=== PATIENT | female | born 1950 | race Caucasian/White ===

== ENCOUNTER 2017-05-15 06:57 | Day surgery (SDC) | payer MEDICAID ==
[2017-05-15] MEDS ORDERED: Lactated Ringers 1,000 ML IV SCH (07:00)
[2017-05-15] MEDS ORDERED: Propofol 200 MG/20 ML SDV ONE (07:28)
[2017-05-15] MEDS ORDERED: fentaNYL 100 MCG/2 ML SDV ONE (07:28)
[2017-05-15] MEDS ORDERED: Midazolam 1 MG/ML 2 ML SDV ONE (07:28)
[2017-05-15] MEDS ORDERED: Metoprolol Succinate 50 MG Tab.ER PO ONE (07:45)
[2017-05-15] MEDS ORDERED: Barium Sulfate 105% w/v Susp 1,900 ML Bottle PO ONE (09:40)
[2017-05-15] MEDS ORDERED: Glucagon,Human Recombinant 1 MG Vial IV ONE (10:15)
--- NOTE | 2017-05-15 11:03 | CR ---
Barium Enema Comp HISTORY: incomplete colonoscopy FINDINGS: Single contrast barium enema study was obtained in the usual retrograde fashion. The rectum and most distal aspect of the sigmoid colon fills normally with contrast. There is severe narrowing of the distal sigmoid colon extending over a length of 4-5 cm. Only minimal contrast passed through t his into the proximal sigmoid colon. The patient was then given 1.0 mg of glucagon IV and very minimal was reattempted. The severely narro wed distal sigmoid colon did not relax with glucagon administration no further contrast would pass th rough this area into the proximal sigmoid colon. Remainder of the colon could not be evaluated. IMPRESSION: Severe narrowing of a 4-5 cm length of distal sigmoid colon precludes filling of the enti re colon. The narrowed segment did not relax with IV glucagon. Remainder of the colon could not be ev aluated. Findings may represent severe stricture due to inflammation or scarring. The patient has a h istory of diverticulitis. Underlying colon malignancy is not excluded.
--- NOTE | 2017-05-15 15:20 | OR ---
DATE OF PROCEDURE: 05/15/2017 PREOPERATIVE DIAGNOSIS: Colon cancer screening. POSTOPERATIVE DIAGNOSIS: Incomplete colonoscopy, only to sigmoid colon. PROCEDURE: Attempted colonoscopy, successful only to the sigmoid colon. ANESTHESIA: IV anesthesia with monitored anesthesia care. INDICATIONS: This 66-year-old white female is referred for a colonoscopy for colon cancer screening. Her last colonoscopic exam was about 10 years ago. I counseled her for the procedure including risks and alternatives, and she gave her informed consent to proceed. DESCRIPTION OF PROCEDURE: The patient was placed in the left lateral decubitus position. IV anesthesia was administered by the Anesthesia Service. Time-out was held. A rectal exam was performed, which was unremarkable. The flexible video Olympus colonoscope was introduced through her anus, up her rectum, and out her colon. We were only successful to about 25 cm from the anal verge. We could not despite applying abdominal compression, get above 25 cm. When it was obvious we were not going to be able to do the complete colonoscopy, the scope was withdrawn, examining the mucosa throughout. No mucosal abnormalities were noted. The scope was retroflexed in the rectum with the distal rectum appearing unremarkable. The scope was straightened and removed. She tolerated the procedure well. We will order a barium enema. Edwin Wheeler MD /[id number]
== END 2017-05-15 12:25 | disposition home or self-care (01) ==
LOC: JP.SDS 06:57
PROVIDERS: ATTEND Surgery
DX: Z12.11 Encounter for screening for malignant neoplasm of colon (principal); F17.200 Nicotine dependence, unspecified, uncomplicated
CPT/HCPCS: 45378; 74270; A9270; J1610; J2250; J2704; J3010; J7120

== ENCOUNTER 2017-09-21 07:48 | Inpatient (IN) | payer MEDICARE, BC ==
[~2017-09-21 07:48] MED LIST: Dexamethasone 4 MG/ML SDV ONE; Glycopyrrolate 0.2 MG/ML 5 ML MDV ONE; Meropenem 500 MG SDV ONE; Neostigmine Methylsulfate 1 MG/ML 5 ML Syringe ONE; Ondansetron 4 MG/2 ML SDV ONE; Propofol 200 MG/20 ML SDV ONE; Rocuronium 50 MG/5 ML Vial ONE; Succinylcholine 200 MG/10 ML MDV ONE
[2017-09-21] MEDS ORDERED: Sodium Chloride 0.9% 10 ML ONE (07:50)
[2017-09-21] MEDS ORDERED: fentaNYL 100 MCG/2 ML SDV ONE (07:50)
[2017-09-21] MEDS ORDERED: Naloxone 0.4 MG/ML SDV IVPUSH PRN (07:54)
[2017-09-21] MEDS ORDERED: Scopolamine 1.5 MG Transdermal Patch TOP SCH (08:00)
[2017-09-21] MEDS ORDERED: Acetaminophen 500 MG Tab PO ONE (08:00)
[2017-09-21] MEDS ORDERED: Dextrose 5%-Lactated Ringers 1,000 ML IV SCH (08:15)
[2017-09-21] MEDS: cefOXitin 2 GM in Sodium Chloride 0.9% 50 ML IV ONE ×2 (11:15→20:11)
[2017-09-21] MEDS ORDERED: fentaNYL 250 MCG/5 ML SDV ONE (12:22)
[2017-09-21] MEDS ORDERED: hydrOXYzine HCl 100 MG/2 ML SDV IM ONE (14:16)
[2017-09-21] MEDS ORDERED: diphenhydrAMINE 50 MG/ML SDV IVPUSH PRN (15:32)
[2017-09-21] MEDS ORDERED: Naloxone 0.4 MG/ML SDV IV PRN (15:32)
[2017-09-21] MEDS ORDERED: Ondansetron 4 MG/2 ML SDV IV PRN (15:36)
[2017-09-21] MEDS ORDERED: ALPRAZolam 0.25 MG Tab PO PRN (15:53)
[2017-09-21] MEDS: fentaNYL 2,500 MCG in Sodium Chloride 0.9% 200 ML EPIDUR SCH (17:19)
[2017-09-21] MEDS: Pantoprazole 40 MG Vial IV SCH (17:32)
[2017-09-21] MEDS: cefOXitin 2 GM in Sodium Chloride 0.9% 50 ML IV SCH ×2 (17:40→23:15)
[2017-09-21] MEDS: Acetaminophen 500 MG Tab PO SCH ×2 (17:51→23:14)
[2017-09-21] MEDS: Lactated Ringers 500 ML IV SCH (20:19)
[2017-09-21] MEDS: Dextrose 5%-Lactated Ringers 1,000 ML IV SCH (23:17)
[2017-09-22] MEDS ORDERED: Lactated Ringers 500 ML IV SCH (00:30)
[2017-09-22] MEDS: Lactated Ringers 500 ML IV SCH (00:30)
[2017-09-22] MEDS: Acetaminophen 500 MG Tab PO SCH ×4 (05:18→23:10)
[2017-09-22] MEDS: cefOXitin 2 GM in Sodium Chloride 0.9% 50 ML IV SCH ×3 (05:18→17:34)
[2017-09-22] MEDS: Dextrose 5%-Lactated Ringers 1,000 ML IV SCH ×3 (06:11→20:13)
[2017-09-22] MEDS: Venlafaxine 75 MG Cap.ER PO SCH (08:29)
[2017-09-22] MEDS: Metoprolol Succinate 50 MG Tab.ER PO SCH (08:36)
--- NOTE | 2017-09-22 10:25 | OR ---
DATE OF PROCEDURE: 09/21/2017 PREOPERATIVE DIAGNOSIS: Stricture of sigmoid colon, preventing more proximal examination of colon. POSTOPERATIVE DIAGNOSES: 1. Stricture of distal sigmoid colon with intense inflammatory response and associated pericolonic abscess. 2. Nodular-appearing lesion overlying the omentum. OPERATIVE PROCEDURES: Exploratory laparotomy with; 1. Rectosigmoid resection with coloproctostomy (72433). 2. Drainage of pericolonic abscess (92016). 3. Excision of peritoneal incision overlying omentum (97391). 4. Mobilization of omentum into pelvis to displace small bowel from pelvic surfaces reducing subsequent adhesion formation (09124). ANESTHESIA: General plus epidural. ASSISTANTS: 1. Cathy Dolan PA-C. 2. RACHEL Reid. INDICATION FOR PROCEDURE: This 66-year-old is presenting with recent colonoscopic examination, which did not allow placement of the scope proximally to around 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 Proximal to that, there was some thickening of the colon wall. The original plan at this point was to proceed with a subtotal colectomy with ileorectal anastomosis. Potential risks including bleeding, infection, leaks from various GI tract closures, possibly requiring a temporary ostomy, as well as the possibility of cardiopulmonary, septic, or hemorrhagic complications leading to were all discussed, and the patient wishes to proceed. DETAILS OF PROCEDURE: The patient was taken to the operating room and placed in a supine position. After general endotracheal anesthesia was induced, she was converted to a lithotomy position, a Judge catheter was inserted, and the abdomen was then prepped and draped. Orogastric tube was briefly placed subsequently to evacuate a somewhat air-filled stomach. Midline incisions were made from roughly a handsbreadth's above the umbilicus to the pubis and carried down through the full-thickness of the abdominal wall. Upon entering the peritoneal cavity, a roughly 3 mm peritoneal nodule was noted over the omentum. This was excised and sent as a separate specimen. Otherwise, the liver was inspected and found to be somewhat fatty infiltrated, but otherwise unremarkable. The colon, proximal to the area of high-grade partial obstruction, was at this point fairly normal. Careful inspection of the colon proximal to the obstruction, which in this case turned out to be quite distal in the sigmoid colon, was made and no specific additional palpable or visible abnormalities were noted. The area of the inflammatory mass was, in fact, quite distal within the sigmoid colon, quite a bit lower than what we would have thought based on the colonoscopic report. At this point, the midsigmoid colon was divided with a SALVADOR stapler and this division then continued with SALVADOR stapler down to the base of the superior hemorrhoidal vessels. This then allowed dissection behind the rectum, and the rectal stalks were then taken with SALVADOR joseph. On the left side, care was taken to maintain a relatively close plane so as not to draw the ureter into the area of dissection and division of the tissues. Eventually, we were able to get beyond the area of inflammation, which in this case was quite low within the rectum. It was felt, at this point we should, based on operative findings, rather than to proceed with a subtotal colectomy, do a rectosigmoid resection with coloproctostomy, as an anastomosis with a subtotal colectomy that low would be fraught with a large problem with very frequent loose bowel movements. Once that dissection was completed, then a clean area in the rectum was identified. This was divided with a SALVADOR black load, this being a curved stapler. The specimen was then inspected off the field. There did not appear to be any evidence of malignancy as the mucosa was otherwise clean in the area of the stricture and adjacent to it, indicating this was a diverticular disease related stricture. Given this, it was felt that the above operation from the resection and lymph node sampling standpoint would be quite adequate. The anvil of a 28-mm EEA stapler was then placed in the divided end of the sigmoid colon, after that staple line had been initially divided. This was then re-stapled with a SALVADOR purple load, and the anvil shaft brought out through the most dependent portion of the divided sigmoid colon, through the rectum, and then the main body of the EEA stapler was passed up to the apex of the rectal staple line, united with the anvil, and thus creating a coloproctostomy. Upon removal of the stapler, double donuts of mucosa were noted within it. The area was flooded with meropenem-containing saline solution while the colonoscope was passed into the rectum and no air bubbles were seen. A clean and intact anastomosis with blood supply on each side was confirmed. With the colonoscope now removed, the anterior two-thirds of the anastomosis was reinforced with 3-0 Vicryl seromuscular stitches. These were placed in an interrupted manner and then, finally, with fibrin sealant circumferentially. One Eugene-Catalan drain was then placed through a stab wound in the right midabdomen, taken down adjacent to the coloproctostomy, and from there further into the pelvis. There were no overt problems noted. The omentum was then mobilized down into the pelvis, displacing the small bowel away from the pelvic surfaces to prevent an adhesion formation in that area should additional subsequent operative intervention be required. At this point, the peritoneum from the linea semilunaris inferiorly was closed with a #2 Vicryl stitch and then the anterior fascia closed with a #2 Vicryl stitch. The skin and subcutaneous tissue were felt to be at high risk for wound infection and were therefore packed open for a planned delayed primary closure in 48 hours. The patient was taken to the recovery room in a satisfactory condition. Prior to getting the general anesthetic, the patient had an epidural catheter placed, which then turned on in terms of infusion prior to the incision, and this appeared to be satisfactory in terms of early pain control. Physician school psychologist assistant, Cathy Dolan, played an essential role in assisting in this case, helping to position the patient, retract structures as needed, as well as suturing and cutting sutures when indicated. Her presence improved patient safety and decreased the operative time. Gary Lam MD Job #: [id number]
--- NOTE | 2017-09-22 11:40 | PCM.PN ---
- General Info Date of Service: 09/22/17 Admission Dx/Problem (Free Text): Status post sigmoid colectomy. Subjective Update: Patient is POD #1. She was hypotension with a low grade fever over night otherwise there we no other acute problems. She is up, ambulating and going to the bathroom. Was in chair this am when seen. She had one bowel movement yesterday that was dark and bloody. Urine has increased since the last bolus of fluids. Functional Status: Reports: Pain Controlled, Tolerating Diet, Ambulating, Urinating, Incentive Spirometry - Review of Systems General: Reports: No Symptoms HEENT: Reports: No Symptoms Pulmonary: Reports: No Symptoms Cardiovascular: Reports: No Symptoms Gastrointestinal: Reports: No Symptoms Genitourinary: Reports: No Symptoms Musculoskeletal: Reports: No Symptoms Skin: Reports: No Symptoms Neurological: Reports: No Symptoms Psychiatric: Reports: No Symptoms Systems Review Comment:: Remainder of ROS is negative for any pertinent negatives or positives. - Patient Data Vitals - Most Recent: Last Vital Signs Temp 99.0 F 09/22/17 11:00 Pulse 86 09/22/17 11:00 Resp 18 09/22/17 11:00 BP 149/134 H 09/22/17 11:00 Pulse Ox 98 09/22/17 11:00 Weight - Most Recent: 162 lb 0.001 oz I&O - Last 24 Hours: Intake & Output 09/21/17 09/22/17 09/22/17 22:59 06:59 14:59 Intake Total 730 3076 350 Output Total 335 831 105 Balance 395 2245 245 Lab Results Last 24 Hours: Laboratory Results - last 24 hr 09/21/17 09/22/17 Range/Units 08:00 04:20 WBC 13.7 H (4.5-11.0) K/uL RBC 4.31 (3.30-5.50) M/uL Hgb 12.8 (12.0-15.0) g/dL Hct 39.9 (36.0-48.0) % MCV 93 (80-98) fL MCH 30 (27-31) pg MCHC 32 (32-36) % Plt Count 186 (150-400) K/uL Carcinoembryonic Ag 6.4 H (0.0-4.7) ng/mL Andrew Results Last 24 Hours: Microbiology 09/21/17 13:20 Gram Stain - Final Abdomen - Drainage Wound Culture - Preliminary Med Orders - Current: Current Medications Acetaminophen (Tylenol Extra Strength) 1,000 mg PO Q6H [facility] Last Admin: 09/22/17 05:18 Dose: Not Given Alprazolam (Xanax) 0.25 mg PO BEDTIME PRN PRN Reason: ANXIETY Alvimopan (Entereg) 12 mg PO BID [facility] Stop: 09/28/17 09:01 Last Admin: 09/22/17 08:29 Dose: 12 mg Diphenhydramine HCl (Benadryl) 25 - 50 mg IVPUSH Q6H PRN PRN Reason: ITCHING Hydroxyzine HCl (Vistaril) 50 - 100 mg IM Q4H PRN PRN Reason: PAIN Fentanyl 2,500 mcg/ Sodium (Chloride) 250 mls @ 0 mls/hr EPIDUR TITRATE [facility]; Protocol Last Admin: 09/21/17 17:19 Dose: 10 mls/hr, 10 mls/hr Dextrose/Lactated Ringer's (Dextrose 5%-Lactated Ringers) 1,000 mls @ 150 mls/ hr IV ASDIRECTED [facility] Last Admin: 09/22/17 06:11 Dose: 150 mls/hr Cefoxitin Sodium 2 gm/ Sodium (Chloride) 50 mls @ 100 mls/hr IV Q6H [facility] Stop: 09/22/17 17:29 Last Admin: 09/22/17 05:18 Dose: 100 mls/hr Lactated Ringer's (Ringers, Lactated) 500 mls @ 5 mls/hr IV ASDIRECTED [facility] Last Admin: 09/22/17 00:30 Dose: 5 mls/hr Lactated Ringer's (Ringers, Lactated) 500 mls @ 500 mls/hr IV ASDIRECTED [facility] Metoprolol Succinate (Toprol Xl) 50 mg PO DAILY [facility] Last Admin: 09/22/17 08:36 Dose: 50 mg Naloxone HCl (Narcan) 0.1 mg IVPUSH Q5M PRN PRN Reason: RESP RATE LESS THAN 6/MINUTE Naloxone HCl (Narcan) 0.4 mg IV ASDIRECTED PRN PRN Reason: ITCHING Ask About Scop Patch 0 each .XX ONETIME ONE Stop: 09/24/17 08:01 Ondansetron HCl (Zofran) 4 mg IV Q4H PRN PRN Reason: N/V Pantoprazole Sodium (Protonix Iv) 40 mg IV Q24H [facility] Last Admin: 09/21/17 17:32 Dose: 40 mg Scopolamine (Transderm-Scop) 1.5 mg TOP Q72H [facility] Stop: 09/24/17 02:00 Last Admin: 09/21/17 08:37 Dose: 1.5 mg Venlafaxine HCl (Effexor Xr) 75 mg PO DAILY [facility] Last Admin: 09/22/17 08:29 Dose: 75 mg Discontinued Medications Acetaminophen (Tylenol Extra Strength) 1,000 mg PO ONETIME ONE Stop: 09/21/17 08:01 Last Admin: 09/21/17 08:14 Dose: 1,000 mg Alvimopan (Entereg) 12 mg PO ONETIME ONE Stop: 09/21/17 08:01 Last Admin: 09/21/17 08:14 Dose: 12 mg Dexamethasone (Dexamethasone) Confirm Administered Dose 4 mg .ROUTE .STK-MED ONE Stop: 09/21/17 07:48 Fentanyl (Sublimaze) Confirm Administered Dose 100 mcg .ROUTE .STK-MED ONE Stop: 09/21/17 07:51 Fentanyl (Sublimaze) Confirm Administered Dose 250 mcg .ROUTE .STK-MED ONE Stop: 09/21/17 12:23 Fentanyl Citrate (Fentanyl) Confirm Administered Dose 500 mcg .ROUTE .STK-MED ONE Stop: 09/21/17 07:52 Glycopyrrolate (Robinul) Confirm Administered Dose 1 mg .ROUTE .STK-MED ONE Stop: 09/21/17 07:48 Hydroxyzine HCl (Vistaril) 50 mg IM ONETIME ONE Stop: 09/21/17 14:17 Last Admin: 09/21/17 14:20 Dose: 50 mg Dextrose/Lactated Ringer's (Dextrose 5%-Lactated Ringers) 1,000 mls @ 100 mls/ hr IV ASDIRECTED [facility] Last Admin: 09/21/17 09:51 Dose: 100 mls/hr Cefoxitin Sodium 2 gm/ Sodium (Chloride) 50 mls @ 100 mls/hr IV ONETIME ONE Stop: 09/21/17 08:29 Last Admin: 09/21/17 20:11 Dose: Not Given Sodium Chloride (Normal Saline) Confirm Administered Dose 10 mls @ as directed .ROUTE .STK-MED ONE Stop: 09/21/17 07:51 Meropenem (Merrem) Confirm Administered Dose 500 mg .ROUTE .STK-MED ONE Stop: 09/21/17 07:04 Last Admin: 09/21/17 13:24 Dose: 500 mg Neostigmine Methylsulfate (Neostigmine) Confirm Administered Dose 5 mg .ROUTE .STK-MED ONE Stop: 09/21/17 07:48 Ondansetron HCl (Zofran) Confirm Administered Dose 4 mg .ROUTE .STK-MED ONE Stop: 09/21/17 07:48 Propofol (Diprivan 20 Ml) Confirm Administered Dose 200 mg .ROUTE .STK-MED ONE Stop: 09/21/17 07:48 Rocuronium [place] (Zemuron) Confirm Administered Dose 50 mg .ROUTE .STK-MED ONE Stop: 09/21/17 07:48 Succinylcholine Chloride (Quelicin) Confirm Administered Dose 200 mg .ROUTE .STK -MED ONE Stop: 09/21/17 07:48 - Exam General: Alert, Oriented, Cooperative, No Acute Distress HEENT: Pupils Equal, Mucous Membr. Moist/[place] Neck: Supple Lungs: Clear to Auscultation, Normal Respiratory Effort Cardiovascular: Regular Rate, Regular Rhythm Extremities: Normal Range of Motion Skin: Warm, Dry, Intact Neurological: No New Focal Deficit Psy/Mental Status: Alert, Normal Affect, Normal Mood - Problem List Review Problem List Initiated/Reviewed/Updated: Yes - Assessment Assessment:: Status post open sigmoid resection. - Plan Plan:: 1. Cefotoxin 2gm sodium cloride 50mL IV q6h 2. LR 500 ML IV as directed 3. Metoprolol Succinate 50mg po qd 4. Venlafaxine 75mg po qd 5. Alvimopan 12mg po BID 6. Remove and replace Scopolamine patch 7. Regular Diet 8. Prepare for secondary closure on 09/23/2017 9. Reevaluate prn or in am
[2017-09-22] MEDS: fentaNYL 2,500 MCG in Sodium Chloride 0.9% 200 ML EPIDUR SCH (12:02)
[2017-09-22] MEDS: traMADol 50 MG Tab PO SCH ×3 (13:03→23:08)
[2017-09-22] MEDS: Bisacodyl 5 MG Tab PO SCH ×2 (13:04→20:15)
[2017-09-22] MEDS: Ibuprofen 400 MG Tab PO SCH ×3 (13:04→23:08)
[2017-09-22] MEDS: Pantoprazole 40 MG Vial IV SCH (17:36)
[2017-09-23] MEDS: Dextrose 5%-Lactated Ringers 1,000 ML IV SCH ×2 (03:10→23:57)
[2017-09-23] MEDS: traMADol 50 MG Tab PO SCH ×4 (05:53→18:41)
[2017-09-23] MEDS: Acetaminophen 500 MG Tab PO SCH ×4 (05:53→17:06)
[2017-09-23] MEDS: Ibuprofen 400 MG Tab PO SCH ×4 (05:53→17:08)
[2017-09-23] MEDS ORDERED: Propofol 200 MG/20 ML SDV ONE (06:41)
[2017-09-23] MEDS ORDERED: Lidocaine 1% with EPINEPHrine 1:100,000 50 ML MDV ONE (06:43)
[2017-09-23] MEDS ORDERED: Meropenem 500 MG SDV ONE (06:43)
[2017-09-23] MEDS ORDERED: Bupivacaine 0.5% 50 ML MDV ONE (06:43)
[2017-09-23] MEDS ORDERED: Furosemide 20 MG/2 ML VIAL IVPUSH ONE (07:00)
[2017-09-23] MEDS ORDERED: Ropivacaine 36 ML, Dexamethasone 8 MG, EPINEPHrine 0.4 MG, Sodium Chloride 0.9% 41.6 ML NERVRT SCH ×4 (07:15)
--- NOTE | 2017-09-23 07:35 | PCM.PN ---
- General Info Date of Service: 09/23/17 Admission Dx/Problem (Free Text): Stricture of sigmoid colon, preventing more proximal exam of colon Subjective Update: Patients is POD #2 and will have a secondary closure of her wound today. She were stable overnight with no major problems. She is up and ambulating and the Judge catheter is still placed. She denies nausea and has not had any gas. Functional Status: Reports: Pain Controlled, Tolerating Diet, Ambulating, Urinating (Judge Catheter), Incentive Spirometry - Review of Systems General: Reports: No Symptoms HEENT: Reports: No Symptoms Pulmonary: Reports: No Symptoms Cardiovascular: Reports: No Symptoms Gastrointestinal: Reports: No Symptoms Genitourinary: Reports: No Symptoms Musculoskeletal: Reports: No Symptoms Skin: Reports: No Symptoms Neurological: Reports: No Symptoms Psychiatric: Reports: No Symptoms Systems Review Comment:: Remainder of ROS is negative for any pertinent negatives or positives. - Patient Data Vitals - Most Recent: Last Vital Signs Temp 97.4 F 09/23/17 03:00 Pulse 73 09/23/17 03:00 Resp 18 09/23/17 03:00 BP 140/84 09/23/17 03:00 Pulse Ox 93 L 09/23/17 03:00 Weight - Most Recent: 162 lb 0.001 oz I&O - Last 24 Hours: Intake & Output 09/22/17 09/23/17 09/23/17 22:59 06:59 14:59 Intake Total 5016 1807 Output Total 263 700 Balance 4753 1107 Lab Results Last 24 Hours: Laboratory Results - last 24 hr 09/21/17 Range/Units 08:00 Carcinoembryonic Ag 6.4 H (0.0-4.7) ng/mL Andrew Results Last 24 Hours: Microbiology 09/21/17 13:20 Gram Stain - Final Abdomen - Drainage Wound Culture - Preliminary Anaerobic Culture - Preliminary NO GROWTH AFTER 1 DAY Med Orders - Current: Current Medications Acetaminophen (Tylenol Extra Strength) 1,000 mg PO Q6H [facility] Last Admin: 09/23/17 06:50 Dose: 1,000 mg Alprazolam (Xanax) 0.25 mg PO BEDTIME PRN PRN Reason: ANXIETY Alvimopan (Entereg) 12 mg PO BID [facility] Stop: 09/28/17 09:01 Last Admin: 06/26/18 20:15 Dose: 12 mg Bisacodyl (Dulcolax) 10 mg PO BID [facility] Last Admin: 09/22/17 20:15 Dose: 10 mg Ropivacaine 36 ml/Dexamethasone 8 mg/Epinephrine HCl 0.4 mg/ Sodium Chloride 41.6 ml 0 ml NERVRT ASDIRECTED [facility] Diphenhydramine HCl (Benadryl) 25 - 50 mg IVPUSH Q6H PRN PRN Reason: ITCHING Hydroxyzine HCl (Vistaril) 50 - 100 mg IM Q4H PRN PRN Reason: PAIN Fentanyl 2,500 mcg/ Sodium (Chloride) 250 mls @ 0 mls/hr EPIDUR TITRATE [facility]; Protocol Last Admin: 09/22/17 12:02 Dose: 10 mls/hr, 10 mls/hr Dextrose/Lactated Ringer's (Dextrose 5%-Lactated Ringers) 1,000 mls @ 150 mls/ hr IV ASDIRECTED [facility] Last Admin: 09/23/17 03:10 Dose: 150 mls/hr Lactated Ringer's (Ringers, Lactated) 500 mls @ 5 mls/hr IV ASDIRECTED [facility] Last Admin: 09/22/17 00:30 Dose: 5 mls/hr Ibuprofen (Motrin) 400 mg PO Q6H [facility] Last Admin: 09/23/17 06:49 Dose: 400 mg Metoprolol Succinate (Toprol Xl) 50 mg PO DAILY [facility] Last Admin: 09/22/17 08:36 Dose: 50 mg Naloxone HCl (Narcan) 0.1 mg IVPUSH Q5M PRN PRN Reason: RESP RATE LESS THAN 6/MINUTE Naloxone HCl (Narcan) 0.4 mg IV ASDIRECTED PRN PRN Reason: ITCHING Ask About Scop Patch 0 each .XX ONETIME ONE Stop: 09/24/17 08:01 Ondansetron HCl (Zofran) 4 mg IV Q4H PRN PRN Reason: N/V Last Admin: 09/22/17 20:24 Dose: 4 mg Pantoprazole Sodium (Protonix Iv) 40 mg IV Q24H [facility] Last Admin: 09/22/17 17:36 Dose: 40 mg Scopolamine (Transderm-Scop) 1.5 mg TOP Q72H [facility] Stop: 09/24/17 02:00 Last Admin: 09/21/17 08:37 Dose: 1.5 mg Senna/Docusate Sodium (Senna Plus) 2 tab PO DAILY [facility] Tramadol HCl (Ultram) 50 mg PO Q6H [facility] Last Admin: 09/23/17 06:50 Dose: 50 mg Venlafaxine HCl (Effexor Xr) 75 mg PO DAILY [facility] Last Admin: 09/22/17 08:29 Dose: 75 mg Discontinued Medications Acetaminophen (Tylenol Extra Strength) 1,000 mg PO ONETIME ONE Stop: 09/21/17 08:01 Last Admin: 09/21/17 08:14 Dose: 1,000 mg Alvimopan (Entereg) 12 mg PO ONETIME ONE Stop: 09/21/17 08:01 Last Admin: 09/21/17 08:14 Dose: 12 mg Bupivacaine HCl (Marcaine 0.5%) Confirm Administered Dose 50 ml .ROUTE .STK-MED ONE Stop: 09/23/17 06:44 Dexamethasone (Dexamethasone) Confirm Administered Dose 4 mg .ROUTE .STK-MED ONE Stop: 09/21/17 07:48 Fentanyl (Sublimaze) Confirm Administered Dose 100 mcg .ROUTE .STK-MED ONE Stop: 09/21/17 07:51 Fentanyl (Sublimaze) Confirm Administered Dose 250 mcg .ROUTE .STK-MED ONE Stop: 09/21/17 12:23 Fentanyl Citrate (Fentanyl) Confirm Administered Dose 500 mcg .ROUTE .STK-MED ONE Stop: 09/21/17 07:52 Furosemide (Lasix) 20 mg IVPUSH STAT ONE Stop: 09/23/17 07:01 Last Admin: 09/23/17 07:05 Dose: 20 mg Glycopyrrolate (Robinul) Confirm Administered Dose 1 mg .ROUTE .STK-MED ONE Stop: 09/21/17 07:48 Hydroxyzine HCl (Vistaril) 50 mg IM ONETIME ONE Stop: 09/21/17 14:17 Last Admin: 09/21/17 14:20 Dose: 50 mg Dextrose/Lactated Ringer's (Dextrose 5%-Lactated Ringers) 1,000 mls @ 100 mls/ hr IV ASDIRECTED [facility] Last Admin: 09/21/17 09:51 Dose: 100 mls/hr Cefoxitin Sodium 2 gm/ Sodium (Chloride) 50 mls @ 100 mls/hr IV ONETIME ONE Stop: 09/21/17 08:29 Last Admin: 09/21/17 20:11 Dose: Not Given Sodium Chloride (Normal Saline) Confirm Administered Dose 10 mls @ as directed .ROUTE .STK-MED ONE Stop: 09/21/17 07:51 Cefoxitin Sodium 2 gm/ Sodium (Chloride) 50 mls @ 100 mls/hr IV Q6H [facility] Stop: 09/22/17 17:29 Last Admin: 09/22/17 17:34 Dose: 100 mls/hr Lactated Ringer's (Ringers, Lactated) 500 mls @ 500 mls/hr IV ASDIRECTED [facility] Lidocaine/Epinephrine (Xylocaine 1% With Epinephrine 1:100,000) Confirm Administered Dose 50 ml .ROUTE .STK-MED ONE Stop: 09/23/17 06:44 Meropenem (Merrem) Confirm Administered Dose 500 mg .ROUTE .STK-MED ONE Stop: 09/21/17 07:04 Last Admin: 09/21/17 13:24 Dose: 500 mg Meropenem (Merrem) Confirm Administered Dose 500 mg .ROUTE .STK-MED ONE Stop: 09/23/17 06:44 Neostigmine Methylsulfate (Neostigmine) Confirm Administered Dose 5 mg .ROUTE .STK-MED ONE Stop: 09/21/17 07:48 Ondansetron HCl (Zofran) Confirm Administered Dose 4 mg .ROUTE .STK-MED ONE Stop: 09/21/17 07:48 Propofol (Diprivan 20 Ml) Confirm Administered Dose 200 mg .ROUTE .STK-MED ONE Stop: 09/21/17 07:48 Propofol (Diprivan 20 Ml) Confirm Administered Dose 200 mg .ROUTE .STK-MED ONE Stop: 09/23/17 06:42 Rocuronium [place] (Zemuron) Confirm Administered Dose 50 mg .ROUTE .STK-MED ONE Stop: 09/21/17 07:48 Succinylcholine Chloride (Quelicin) Confirm Administered Dose 200 mg .ROUTE .STK -MED ONE Stop: 09/21/17 07:48 - Exam General: Alert, Oriented, Cooperative, No Acute Distress HEENT: Pupils Equal, Mucous Membr. Moist/[place] Neck: Supple Lungs: Clear to Auscultation, Normal Respiratory Effort Cardiovascular: Regular Rate, Regular Rhythm GI/Abdominal Exam: Normal Bowel Sounds Extremities: Normal Range of Motion Skin: Warm, Dry, Intact Wound/Incisions: Healing Well, Drainage (Serosanguous), Other (Delayed primary closure schedule for today.) Neurological: No New Focal Deficit Psy/Mental Status: Alert, Normal Affect, Normal Mood - Problem List Review Problem List Initiated/Reviewed/Updated: Yes - Assessment Assessment:: 1. Status post open stricture of distal sigmoid colon with intense inflammatory and associated periocolonic abscess 2. Nodular lesion overlying omentum. - Plan Plan:: 1. Delayed primary closure schedule for this am 2. Orders will be reevaluated post operative 4. Lasix was given prior to closure 3. Reevaluate prn or in am
[2017-09-23] MEDS: Bisacodyl 5 MG Tab PO SCH ×2 (09:56→21:12)
[2017-09-23] MEDS: Venlafaxine 75 MG Cap.ER PO SCH (09:56)
[2017-09-23] MEDS: Metoprolol Succinate 50 MG Tab.ER PO SCH (09:57)
[2017-09-23] MEDS ORDERED: Bisacodyl 10 MG Supp RECTAL ONE (10:00)
[2017-09-23] MEDS: Furosemide 20 MG/2 ML VIAL IVPUSH SCH ×2 (10:07→17:08)
[2017-09-23] MEDS: fentaNYL 2,500 MCG in Sodium Chloride 0.9% 200 ML EPIDUR SCH (13:05)
--- NOTE | 2017-09-23 14:05 | OR ---
DATE OF PROCEDURE: 09/23/2017 PREOPERATIVE DIAGNOSIS: Open abdominal incision. POSTOPERATIVE DIAGNOSIS: Open abdominal incision. OPERATIVE PROCEDURE: Delayed primary closure of open abdominal incision. ANESTHESIA: Local plus IV sedation. INDICATION FOR PROCEDURE: The patient is 48 hours status post a colon resection, at which time, the skin and subcutaneous tissue were felt to be at high risk for wound infection if primary closure was undertaken. Given this, it was packed open and a delayed primary closure was planned for today. Potential risks including bleeding and infection were reviewed, and the patient wishes to proceed. DETAILS OF PROCEDURE: The patient was taken to the operating room and placed in a supine position, sitting up roughly 30 degrees to minimize aspiration risk. The abdominal dressing was taken down. Using continuous ultrasound, bilateral subcostal transversus abdominis plane blocks were then placed and following that the abdomen was prepped and draped. The incision appeared to be clean. The incision was then anesthetized with 1% lidocaine mixed with Marcaine and irrigated with a meropenem-containing saline solution. The 10-Citizen [place] round Eugene-Catalan drain was placed through a stab wound along the inferior aspect of incision. The incision was extended from the pubis up to just below the xiphoid. The incision was then closed with some 3-0 Vicryl stitch deep and then joseph for the skin. Dressing was applied. The patient was taken to the recovery room in a satisfactory condition. Gary Lam MD Job #: [id number]
--- NOTE | 2017-09-23 14:18 | PN ---
DATE OF SERVICE: 09/23/2017 The patient was a little bit more short of breath this morning. Given this, she, I think, probably has a little bit of extra fluid on board. We will back down the IV rate and give her a dose of Lasix this morning, repeat one little bit later in the morning and one this evening, and check some labs tomorrow morning. Otherwise, she is fairly distended and, I think, we will back down on the diet to a clear liquid diet until she has a bowel movement and continue with bowel stimulation otherwise, plus Dulcolax suppository later this morning. The patient underwent a wound closure without difficulty earlier today. Gary Lam MD Job #: [id number]
[2017-09-23] MEDS: Pantoprazole 40 MG Vial IV SCH (17:07)
[2017-09-23] MEDS ORDERED: Furosemide 40 MG/4 ML VIAL IVPUSH ONE (21:44)
[2017-09-23] MEDS ORDERED: Albuterol/Ipratropium 3.0-0.5 MG/3 ML Neb Soln NEB ONE (23:58)
[2017-09-24] MEDS: Albuterol/Ipratropium 3.0-0.5 MG/3 ML Neb Soln NEB SCH ×6 (00:10→23:34)
[2017-09-24] MEDS: Ibuprofen 400 MG Tab PO SCH ×4 (00:19→20:02)
[2017-09-24] MEDS: traMADol 50 MG Tab PO SCH ×2 (00:20→05:13)
[2017-09-24] MEDS: Acetaminophen 500 MG Tab PO SCH ×4 (00:20→20:32)
[2017-09-24] MEDS ORDERED: Sodium Chloride 0.9% 1,000 ML IV SCH (01:15)
--- NOTE | 2017-09-24 07:26 | PCM.PN ---
- General Info Date of Service: 09/24/17 Admission Dx/Problem (Free Text): Stricture of sigmoid colon, preventing more proximal exam of colon Subjective Update: Patient is POD #3. Her vitals were stable over night and there were no acute changes or problems overnight. Since admission her weight has increased 17lbs. Overnight she was experiencing some confusion and the tramadol was stopped. This will be discontinued today and we will continue forward using Tylenol or Ibuprofen for pain. If the pain gets worse will switch to Dilaudid. Patient still has an epidural and a estrada catheter. The epidural will be discontinued today, however the estrada catheter will remain due to inadequate urine output. Her in take was 820, she was up and ambulating. She had one bloody bowel movement. The patient continues to be short of breath and states that she is very hoarse this am. Functional Status: Reports: Pain Controlled, Tolerating Diet, Ambulating, Urinating (Estrada Catheter will stay due to inadequate urine output. ) - Review of Systems General: Reports: No Symptoms HEENT: Reports: Other (Hoarse.) Pulmonary: Reports: Shortness of Breath Cardiovascular: Reports: No Symptoms Gastrointestinal: Reports: No Symptoms Genitourinary: Reports: No Symptoms Musculoskeletal: Reports: No Symptoms Skin: Reports: No Symptoms Neurological: Reports: No Symptoms Psychiatric: Reports: No Symptoms Systems Review Comment:: Remainder of ROS is negative for any pertinent positives or negatives. - Patient Data Vitals - Most Recent: Last Vital Signs Temp 98.9 F 09/24/17 07:19 Pulse 90 09/24/17 07:19 Resp 20 09/24/17 07:19 BP 141/66 H 09/24/17 07:19 Pulse Ox 94 L 09/24/17 07:19 Weight - Most Recent: 175 lb 3.2 oz I&O - Last 24 Hours: Intake & Output 09/23/17 09/24/17 09/24/17 22:59 06:59 14:59 Intake Total 1409 1135 Output Total 544 683 Balance 862 452 Lab Results Last 24 Hours: Laboratory Results - last 24 hr 09/24/17 09/24/17 Range/Units 05:00 05:00 WBC 13.1 H (4.5-11.0) K/uL RBC 3.99 (3.30-5.50) M/uL Hgb 12.0 (12.0-15.0) g/dL Hct 36.5 (36.0-48.0) % MCV 92 (80-98) fL MCH 30 (27-31) pg MCHC 33 (32-36) % Plt Count 198 (150-400) K/uL Neut % (Auto) 84 H (36-66) % Lymph % (Auto) 7 L (24-44) % [place]cl[place] % (Auto) 9 H (2-6) % Eos % (Auto) 0 L (2-4) % Baso % (Auto) 0 (0-1) % Sodium 135 L (140-148) mmol/L Potassium 3.3 L (3.6-5.2) mmol/L Chloride 97 L (100-108) mmol/L Carbon Dioxide 28 (21-32) mmol/L Anion Gap 13.3 (5.0-14.0) mmol/L BUN 13 (7-18) mg/dL Creatinine 1.0 (0.6-1.0) mg/dL Est Cr Clr Drug Dosing 43.97 mL/min Estimated GFR (MDRD) 56 L (>60) Glucose 125 H (74-106) mg/dL Calcium 8.5 (8.5-10.1) mg/dL Phosphorus 3.1 (2.5-4.9) mg/dL Magnesium 1.3 L (1.8-2.4) mg/dL Total Bilirubin 0.5 (0.2-1.0) mg/dL AST 68 H (15-37) U/L ALT 52 (12-78) U/L Alkaline Phosphatase 75 (46-116) U/L NT-Pro-B Natriuret Pep 4435 H (5-125) pg/mL Total Protein 7.0 (6.4-8.2) g/dL Albumin 2.9 L (3.4-5.0) g/dL Globulin 4.1 H (2.3-3.5) g/dL Albumin/Globulin Ratio 0.7 L (1.2-2.2) Andrew Results Last 24 Hours: Microbiology 09/21/17 13:20 Gram Stain - Final Abdomen - Drainage Wound Culture - Preliminary Citrobacter Freundii Anaerobic Culture - Preliminary NO GROWTH AFTER 2 DAYS Med Orders - Current: Current Medications Acetaminophen (Tylenol Extra Strength) 1,000 mg PO Q6H [facility] Last Admin: 09/24/17 05:13 Dose: 1,000 mg Albuterol/Ipratropium (Duoneb 3.0-0.5 Mg/3 Ml) 3 ml NEB Q4H [facility] Last Admin: 09/24/17 02:49 Dose: 3 ml Alprazolam (Xanax) 0.25 mg PO BEDTIME PRN PRN Reason: ANXIETY Alvimopan (Entereg) 12 mg PO BID [facility] Stop: 09/28/17 09:01 Last Admin: 09/23/17 21:11 Dose: 12 mg Bisacodyl (Dulcolax) 10 mg PO BID [facility] Last Admin: 09/23/17 21:12 Dose: 10 mg Diphenhydramine HCl (Benadryl) 25 - 50 mg IVPUSH Q6H PRN PRN Reason: ITCHING Hydroxyzine HCl (Vistaril) 50 - 100 mg IM Q4H PRN PRN Reason: PAIN Fentanyl 2,500 mcg/ Sodium (Chloride) 250 mls @ 0 mls/hr EPIDUR TITRATE [facility]; Protocol Last Admin: 09/23/17 13:05 Dose: 10 mls/hr, 10 mls/hr Dextrose/Lactated Ringer's (Dextrose 5%-Lactated Ringers) 1,000 mls @ 80 mls/ hr IV ASDIRECTED [facility] Last Admin: 09/23/17 23:57 Dose: 80 mls/hr Ibuprofen (Motrin) 400 mg PO Q6H [facility] Last Admin: 09/24/17 05:13 Dose: 400 mg Metoprolol Succinate (Toprol Xl) 50 mg PO DAILY [facility] Last Admin: 09/23/17 09:57 Dose: 50 mg Naloxone HCl (Narcan) 0.1 mg IVPUSH Q5M PRN PRN Reason: RESP RATE LESS THAN 6/MINUTE Naloxone HCl (Narcan) 0.4 mg IV ASDIRECTED PRN PRN Reason: ITCHING Ask About Scop Patch 0 each .XX ONETIME ONE Stop: 09/24/17 08:01 Ondansetron HCl (Zofran) 4 mg IV Q4H PRN PRN Reason: N/V Last Admin: 09/22/17 20:24 Dose: 4 mg Pantoprazole Sodium (Protonix Iv) 40 mg IV Q24H [facility] Last Admin: 09/23/17 17:07 Dose: 40 mg Scopolamine (Transderm-Scop) 1.5 mg TOP Q72H [facility] Stop: 09/27/17 08:59 Senna/Docusate Sodium (Senna Plus) 2 tab PO DAILY [facility] Last Admin: 09/23/17 12:25 Dose: 2 tab Tramadol HCl (Ultram) 50 mg PO Q6H [facility] Last Admin: 09/24/17 05:13 Dose: Not Given Venlafaxine HCl (Effexor Xr) 75 mg PO DAILY [facility] Last Admin: 09/23/17 09:56 Dose: 75 mg Discontinued Medications Acetaminophen (Tylenol Extra Strength) 1,000 mg PO ONETIME ONE Stop: 09/21/17 08:01 Last Admin: 09/21/17 08:14 Dose: 1,000 mg Albuterol/Ipratropium (Duoneb 3.0-0.5 Mg/3 Ml) 3 ml NEB ONETIME ONE Stop: 09/23/17 23:59 Last Admin: 09/24/17 00:10 Dose: Not Given Alvimopan (Entereg) 12 mg PO ONETIME ONE Stop: 09/21/17 08:01 Last Admin: 09/21/17 08:14 Dose: 12 mg Bisacodyl (Dulcolax) 10 mg RECTAL ONETIME ONE Stop: 09/23/17 10:01 Last Admin: 09/23/17 10:11 Dose: 10 mg Bupivacaine HCl (Marcaine 0.5%) Confirm Administered Dose 50 ml .ROUTE .STK-MED ONE Stop: 09/23/17 06:44 Last Admin: 09/23/17 07:37 Dose: 17.5 ml Ropivacaine 36 ml/Dexamethasone 8 mg/Epinephrine HCl 0.4 mg/ Sodium Chloride 41.6 ml 0 ml NERVRT ASDIRECTED [facility] Last Admin: 09/23/17 07:30 Dose: 80 syringe Dexamethasone (Dexamethasone) Confirm Administered Dose 4 mg .ROUTE .STK-MED ONE Stop: 09/21/17 07:48 Fentanyl (Sublimaze) Confirm Administered Dose 100 mcg .ROUTE .STK-MED ONE Stop: 09/21/17 07:51 Fentanyl (Sublimaze) Confirm Administered Dose 250 mcg .ROUTE .STK-MED ONE Stop: 09/21/17 12:23 Fentanyl Citrate (Fentanyl) Confirm Administered Dose 500 mcg .ROUTE .STK-MED ONE Stop: 09/21/17 07:52 Furosemide (Lasix) 20 mg IVPUSH STAT ONE Stop: 09/23/17 07:01 Last Admin: 09/23/17 07:05 Dose: 20 mg Furosemide (Lasix) 20 mg IVPUSH BID@1000,1700 [facility] Stop: 09/23/17 17:01 Last Admin: 09/23/17 17:08 Dose: 20 mg Furosemide (Lasix) 40 mg IVPUSH ONETIME ONE Stop: 09/23/17 21:45 Last Admin: 09/23/17 21:54 Dose: 40 mg Glycopyrrolate (Robinul) Confirm Administered Dose 1 mg .ROUTE .[facility] ONE Stop: 09/21/17 07:48 Hydroxyzine HCl (Vistaril) 50 mg IM ONETIME ONE Stop: 09/21/17 14:17 Last Admin: 09/21/17 14:20 Dose: 50 mg Dextrose/Lactated Ringer's (Dextrose 5%-Lactated Ringers) 1,000 mls @ 100 mls/ hr IV ASDIRECTED [facility] Last Admin: 09/21/17 09:51 Dose: 100 mls/hr Cefoxitin Sodium 2 gm/ Sodium (Chloride) 50 mls @ 100 mls/hr IV ONETIME ONE Stop: 09/21/17 08:29 Last Admin: 09/21/17 20:11 Dose: Not Given Sodium Chloride (Normal Saline) Confirm Administered Dose 10 mls @ as directed .ROUTE .[facility] ONE Stop: 09/21/17 07:51 Dextrose/Lactated Ringer's (Dextrose 5%-Lactated Ringers) 1,000 mls @ 150 mls/ hr IV ASDIRECTED [facility] Last Admin: 09/23/17 03:10 Dose: 150 mls/hr Cefoxitin Sodium 2 gm/ Sodium (Chloride) 50 mls @ 100 mls/hr IV Q6H [facility] Stop: 09/22/17 17:29 Last Admin: 09/22/17 17:34 Dose: 100 mls/hr Lactated Ringer's (Ringers, Lactated) 500 mls @ 5 mls/hr IV ASDIRECTED [facility] Last Admin: 09/22/17 00:30 Dose: 5 mls/hr Lactated Ringer's (Ringers, Lactated) 500 mls @ 500 mls/hr IV ASDIRECTED [facility] Lidocaine/Epinephrine (Xylocaine 1% With Epinephrine 1:100,000) Confirm Administered Dose 50 ml .ROUTE .STK-MED ONE Stop: 09/23/17 06:44 Last Admin: 09/23/17 07:37 Dose: 17.5 ml Meropenem (Merrem) Confirm Administered Dose 500 mg .ROUTE .STK-MED ONE Stop: 09/21/17 07:04 Last Admin: 09/21/17 13:24 Dose: 500 mg Meropenem (Merrem) Confirm Administered Dose 500 mg .ROUTE .STK-MED ONE Stop: 09/23/17 06:44 Last Admin: 09/23/17 07:38 Dose: 500 mg Neostigmine Methylsulfate (Neostigmine) Confirm Administered Dose 5 mg .ROUTE .STK-MED ONE Stop: 09/21/17 07:48 Ondansetron HCl (Zofran) Confirm Administered Dose 4 mg .ROUTE .STK-MED ONE Stop: 09/21/17 07:48 Propofol (Diprivan 20 Ml) Confirm Administered Dose 200 mg .ROUTE .STK-MED ONE Stop: 09/21/17 07:48 Propofol (Diprivan 20 Ml) Confirm Administered Dose 200 mg .ROUTE .STK-MED ONE Stop: 09/23/17 06:42 Rocuronium [place] (Zemuron) Confirm Administered Dose 50 mg .ROUTE .STK-MED ONE Stop: 09/21/17 07:48 Scopolamine (Transderm-Scop) 1.5 mg TOP Q72H [facility] Stop: 09/24/17 02:00 Last Admin: 09/21/17 08:37 Dose: 1.5 mg Succinylcholine Chloride (Quelicin) Confirm Administered Dose 200 mg .ROUTE .STK -MED ONE Stop: 09/21/17 07:48 - Exam General: Alert, Oriented, Cooperative, No Acute Distress HEENT: Pupils Equal, Mucous Membr. Moist/[place] Neck: Supple Lungs: Clear to Auscultation, Normal Respiratory Effort Cardiovascular: Regular Rate, Regular Rhythm Extremities: Normal Range of Motion, No Pedal Edema Skin: Warm, Dry, Intact Wound/Incisions: Healing Well, Dressing Dry and Intact Neurological: No New Focal Deficit Psy/Mental Status: Alert, Normal Affect, Normal Mood - Problem List Review Problem List Initiated/Reviewed/Updated: Yes - Assessment Assessment:: 1. Status post open stricture of distal sigmoid colon with intense inflammatory and associated periocolonic abscess 2. Nodular lesion overlying omentum. - Plan Plan:: 1.Consult with Dr. Ritter 2. CBC with Diff, hemogram in am 3. CMP in am 4. Phosphorus in am 5. BNP in am 6. Bisacodyl 10mg rectal one time 7. Furosemide 20mg IV push one ke[place] 8. Magnesium Sulfate/Water 2gm IV Q6H 9. Potassium Chloride 20 meq IV one time 10. Potassium Chloride 20 meq po TID 11. Discontinue Tramadol 50mg PO q6h 12. Discontinue epidural 13. Reevaluate prn or in am
[2017-09-24] MEDS ORDERED: Furosemide 20 MG/2 ML VIAL IVPUSH ONE (08:00)
[2017-09-24] MEDS ORDERED: Potassium Chloride 20 MEQ in Premix Bag 1 BAG IV ONE (08:00)
[2017-09-24] MEDS ORDERED: ASK ABOUT SCOP PATCH ONE (08:00)
--- NOTE | 2017-09-24 08:50 | CR ---
CHEST: 2 view CLINICAL HISTORY:Shortness of breath COMPARISON:None FINDINGS: Heart size is upper limits of normal. There is some pulmonary vascular cephalization. The there are scattered the ill-defined densities throughout both midlung koo. There are some nodular densities in the left upper lobe. The there is no pleural effusion. There are some distended small alice wel loops in the abdomen IMPRESSION: Vascular cephalization may represent pulmonary venous hypertension Scattered ill-defined and nodular type densities in both lung koo predominantly in the upper lobes . This may represent diffuse pneumonia. The underlying pulmonary nodules are not excluded. Short-term follow-up is recommended after course of treatment Nonspecific bowel distention
[2017-09-24] MEDS ORDERED: Scopolamine 1.5 MG Transdermal Patch TOP SCH (09:00)
[2017-09-24] MEDS ORDERED: Bisacodyl 10 MG Supp RECTAL ONE (09:00)
[2017-09-24] MEDS ORDERED: Scopolamine 1.5 MG Transdermal Patch TRDERM PRN (09:00)
[2017-09-24] MEDS: Potassium Chloride 20 MEQ Tab.ER PO SCH ×3 (09:29→18:58)
[2017-09-24] MEDS: Venlafaxine 75 MG Cap.ER PO SCH (09:29)
[2017-09-24] MEDS: Bisacodyl 5 MG Tab PO SCH ×2 (09:30→23:51)
[2017-09-24] MEDS: Metoprolol Succinate 50 MG Tab.ER PO SCH (09:32)
[2017-09-24] MEDS: Magnesium Sulfate/Water 2 GM in Premix Bag 1 BAG IV SCH ×3 (10:22→23:47)
[2017-09-24] MEDS: Dextrose 5%-Lactated Ringers 1,000 ML IV SCH ×2 (12:35→19:51)
[2017-09-24] MEDS ORDERED: Piperacillin/Tazobactam 3.375 GM in Sodium Chloride 0.9% 50 ML IV SCH (12:45)
[2017-09-24] MEDS: Piperacillin/Tazobactam/Dext 3.375 GM in Premix Bag 1 BAG IV SCH ×2 (13:09→19:56)
--- NOTE | 2017-09-24 13:40 | PCM.CONS ---
H&P History of Present Illness - General Date of Service: 09/24/17 Source of Information: Patient, Family, Provider, RN Notes Reviewed History Limitations: Reports: No Limitations - History of Present Illness Initial Comments - Free Text/Narative: Ms. Mosley is a 67-year-old woman who I been asked to see by Dr. Lam for further recommendations concerning evaluation and management of shortness of breath with hypoxia. Ms. Mosley underwent colon surgery 3 days ago performed by Dr. Lam. She was doing well until 24 hours ago when she began to develop symptoms of increased shortness of breath. She was given IV furosemide during the day yesterday, despite this had no significant improvement in her shortness of breath and in fact symptoms have progressed over the past 24 hours. Chest x- ray does suggest pulmonary edema but also question of possible pulmonary infiltrates. Echocardiogram is been obtained today and shows good left ventricular function with no significant valvular disease although the study was limited because of the patient's shortness of breath and tachycardia. Blood gases show hypoxia as well as hypocapnia consistent with hyperventilation to maintain saturations. Attempt was made to proceed with CT scan of the chest with PE protocol but was unsuccessful in that the patient was unable to lie flat. abdomen Pain Score (Numeric/FACES): 0 - Related Data Allergies/Adverse Reactions: Allergies Allergy/AdvReac Type Severity Reaction Status Date / Time Fdbheni-[id number]-Dfc Reductase AdvReac Muscle Verified 09/21/17 08:44 Inhibitor Aches Home Medications: Home Meds ALPRAZolam [Xanax] 0.25 mg PO BEDTIME 05/13/17 [History] Doxycycline [Doxycycline Monohydrate] 100 mg PO DAILY PRN 05/13/17 [History] Hydrochlorothiazide 25 mg PO DAILY 05/13/17 [History] Metoprolol Succinate 50 mg PO DAILY 05/13/17 [History] Omeprazole Magnesium [Prilosec Otc] 20 mg PO DAILY 05/13/17 [History] Pravastatin [Pravachol] 40 mg PO BEDTIME 05/13/17 [History] Venlafaxine [Effexor XR] 75 mg PO DAILY 05/13/17 [History] Ciprofloxacin HCl [Cipro] 500 mg PO BID 09/17/17 [History] Past Medical History HEENT History: Reports: Cataract, Impaired Vision, Retinal Detachment Cardiovascular History: Reports: High Cholesterol, Hypertension, Other (See Below) Other Cardiovascular History: tachycardia Gastrointestinal History: Reports: Diverticulosis, GERD Genitourinary History: Reports: None 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: Fibroids, Psychiatric History: Reports: Anxiety Endocrine/Metabolic History: Reports: Osteopenia Oncologic (Cancer) History: Reports: Squamous Cell Carcinoma Dermatologic History: Reports: Eczema - Infectious Disease History Infectious Disease History: Reports: Chicken Pox, Measles Other Infectious Disease History: Anaplasmosis - Past Surgical History HEENT Surgical History: Reports: Cataract Surgery, Other (See Below) Other HEENT Surgeries/Procedures: retinal detachment surgery Cardiovascular Surgical History: Reports: None GI Surgical History: Reports: Appendectomy, Colonoscopy, EGD, Other (See Below) Other GI Surgeries/Procedures: colon resection - diverticulitis Female Surgical History: Reports: Hysterectomy, Tubal Ligation Endocrine Surgical History: Reports: None Dermatological Surgical History: Reports: Skin Biopsy Social & Family History - Family History Family Medical History: Noncontributory - Tobacco Use Smoking Status *Q: Current Every Day Smoker Years of Tobacco use: 45 Packs/Tins Daily: 1.5 - Caffeine Use Caffeine Use: Reports: Coffee - Alcohol Use Days Per Week of Alcohol Use: 7 Number of Drinks Per Day: 2 Total Drinks Per Week: 14 - Recreational Drug Use Recreational Drug Use: No H&P Review of Systems - Review of Systems: Review Of Systems: See Below General: Denies: Fever, Chills Pulmonary: Reports: Shortness of Breath. Denies: Wheezing, Pleuritic Chest Pain , Cough, Sputum, Hemoptysis Cardiovascular: Reports: Dyspnea on Exertion, Orthopnea, Edema. Denies: Chest Pain, Palpitations, PND Gastrointestinal: Reports: Abdominal Pain. Denies: Distension, Hematemesis, Hematochezia, Nausea, Vomiting Genitourinary: Reports: No Symptoms Exam - Exam Exam: See Below - Vital Signs Vital Signs: Last Vital Signs Temp 97.6 F 09/24/17 11:55 Pulse 103 H 09/24/17 11:55 Resp 20 09/24/17 11:55 BP 156/63 H 09/24/17 11:55 Pulse Ox 94 L 09/24/17 11:55 Weight: 175 lb 3.2 oz - Exam Quality Assessment: Supplemental Oxygen, DVT Prophylaxis General: Alert, Oriented, Cooperative, Moderate Distress Neck: Supple, Trachea Midline, +2 Carotid Pulse wo Bruit Lungs: Decreased Breath Sounds, Rales. No: Crackles, Rhonchi, Rub, Stridor, Wheezing Cardiovascular: Regular Rhythm, Normal S1, Normal S2, Tachycardia. No: Systolic Murmur, Diastolic Murmur GI/Abdominal Exam: Soft, No Organomegaly, Tender. No: Distended, Guarding, Rigid, Rebound Extremities: Non-Tender, Pedal Edema - Patient Data Lab Results Last 24 hrs: Laboratory Results - last 24 hr 09/24/17 09/24/17 Range/Units 05:00 05:00 WBC 13.1 H (4.5-11.0) K/uL RBC 3.99 (3.30-5.50) M/uL Hgb 12.0 (12.0-15.0) g/dL Hct 36.5 (36.0-48.0) % MCV 92 (80-98) fL MCH 30 (27-31) pg MCHC 33 (32-36) % Plt Count 198 (150-400) K/uL Neut % (Auto) 84 H (36-66) % Lymph % (Auto) 7 L (24-44) % [place] % (Auto) 9 H (2-6) % Eos % (Auto) 0 L (2-4) % Baso % (Auto) 0 (0-1) % Sodium 135 L (140-148) mmol/L Potassium 3.3 L (3.6-5.2) mmol/L Chloride 97 L (100-108) mmol/L Carbon Dioxide 28 (21-32) mmol/L Anion Gap 13.3 (5.0-14.0) mmol/L BUN 13 (7-18) mg/dL Creatinine 1.0 (0.6-1.0) mg/dL Est Cr Clr Drug Dosing 43.97 mL/min Estimated GFR (MDRD) 56 L (>60) Glucose 125 H (74-106) mg/dL Calcium 8.5 (8.5-10.1) mg/dL Phosphorus 3.1 (2.5-4.9) mg/dL Magnesium 1.3 L (1.8-2.4) mg/dL Total Bilirubin 0.5 (0.2-1.0) mg/dL AST 68 H (15-37) U/L ALT 52 (12-78) U/L Alkaline Phosphatase 75 (46-116) U/L NT-Pro-B Natriuret Pep 4435 H (5-125) pg/mL Total Protein 7.0 (6.4-8.2) g/dL Albumin 2.9 L (3.4-5.0) g/dL Globulin 4.1 H (2.3-3.5) g/dL Albumin/Globulin Ratio 0.7 L (1.2-2.2) Result Diagrams: 09/24/17 05:00 09/24/17 05:00 Andrew Results Last 24 hrs: Microbiology 09/21/17 13:20 Gram Stain - Final Abdomen - Drainage Wound Culture - Preliminary Citrobacter Freundii Anaerobic Culture - Preliminary NO GROWTH AFTER 2 DAYS Consult PN Assessment/Plan Procedures: Procedures ASSAY OF CREATININE (05/25/17) CONTRAST X-RAY EXAM OF COLON (05/15/17) CT ABD & PELV W/CONTRAST (05/25/17) DIAGNOSTIC COLONOSCOPY (05/15/17) ROUTINE VENIPUNCTURE (05/25/17) SCR MAMMO BI INCL CAD (04/03/17) Problem List Initiated/Reviewed/Updated: Yes My Orders Last 24 Hours: My Active Orders 09/24/17 10:40 Echo Comp wo Cont [US] Stat 09/24/17 13:36 Ang Chest [CT] Stat 09/24/17 13:38 BLOOD GAS ARTERIAL [BG] Stat 09/24/17 13:45 Levofloxacin/Dextrose 5%-Water [Levaquin in D5W 750 MG/150 ML] 750 mg Premix Bag 1 bag IV Q24H Plan: ASSESSMENT AND RECOMMENDATIONS ACUTE HYPOXIC RESPIRATORY FAILURE-most likely does have some underlying chronic lung disease related to [id number] smoking history, she smoked up until the time of this admission. Chest x-ray shows possible pulmonary edema versus infectious infiltrate. CT scan of the chest with PE protocol and been ordered, scan was unsuccessful because the patient was unable to lie flat. Blood gases show significant hypoxia associated with hypocapnia consistent with hyperventilation. Echocardiogram shows normal left ventricular function with no significant valvular abnormalities although study was felt to be technically compromised because of patient's shortness of breath and difficulty with positioning. -Transfer to the intensive care unit for more close monitoring and management -Noninvasive positive pressure ventilation -Supplemental oxygen as needed -Nebulized albuterol and duo nebs -Follow-up blood gases on noninvasive positive pressure ventilation -Expanded IV antibiotic coverage with Zosyn and levofloxacin -Bilateral lower extremity venous Doppler studies to rule out DVT -Plan for CT scan when respiratory status has stabilized STATUS POST COLON SURGERY -Postoperative care per Dr. Lam Requesting Provider: ROLANDO Date Consult Requested: 09/24/17 Reason for Consult: Hypoxia and shortness of breath Patient History Reviewed: Yes
[2017-09-24] MEDS ORDERED: Sodium Chloride 0.9% 10 ML Syringe FLUSH PRN (13:51)
[2017-09-24] MEDS ORDERED: Sodium Chloride 0.9% 90 ML IV ONE (13:51)
[2017-09-24] MEDS ORDERED: Iopamidol 755 Mg/ML 100 ML Bottle IV SCH (14:00)
[2017-09-24] MEDS ORDERED: Albuterol 0.083% 2.5 MG/3 ML Neb Soln NEB PRN (14:07)
[2017-09-24] MEDS: Levofloxacin/Dextrose 5%-Water 750 MG in Premix Bag 1 BAG IV SCH (15:08)
[2017-09-24] MEDS: LORazepam 2 MG/ML SDV IVPUSH PRN (15:30)
[2017-09-24] MEDS ORDERED: Heparin Sodium 5,000 Units/ML Vial ONE (17:07)
[2017-09-24] MEDS ORDERED: Succinylcholine 200 MG/10 ML MDV ONE (17:27)
[2017-09-24] MEDS ORDERED: Propofol 200 MG/20 ML SDV ONE (17:27)
[2017-09-24] MEDS: Heparin Sodium 5,000 UNITS in Sodium Chloride 0.9% 500 ML IV SCH (17:33)
[2017-09-24] MEDS ORDERED: Potassium Chloride 40 MEQ in Premix Bag 1 BAG IV ONE (18:08)
[2017-09-24] MEDS ORDERED: Linezolid 600 MG in Premix Bag 1 BAG IV SCH (18:45)
[2017-09-24] MEDS ORDERED: Furosemide 40 MG/4 ML VIAL IVPUSH ONE (18:45)
[2017-09-24] MEDS: Pantoprazole 40 MG Vial IV SCH (19:44)
[2017-09-24] MEDS ORDERED: Vancomycin 1 GM SDV IV SCH (20:00)
[2017-09-24] MEDS ORDERED: Potassium Chloride 20 MEQ in Premix Bag 2 BAG IV SCH (20:00)
[2017-09-24] MEDS: methylPREDNISolone Sodium Succinate 40 MG/1 ML SDV IVPUSH SCH (20:24)
[2017-09-24] MEDS: Potassium Chloride 20 MEQ in Premix Bag 1 BAG IV SCH ×2 (20:30→23:03)
[2017-09-24] MEDS ORDERED: Potassium Chloride 20 MEQ in Premix Bag 1 BAG IV SCH (23:00)
[2017-09-25] MEDS: methylPREDNISolone Sodium Succinate 40 MG/1 ML SDV IVPUSH SCH ×5 (00:50→23:46)
[2017-09-25] MEDS: Piperacillin/Tazobactam/Dext 3.375 GM in Premix Bag 1 BAG IV SCH ×4 (00:53→18:09)
[2017-09-25] MEDS: Acetaminophen 500 MG Tab PO SCH ×2 (01:06→05:40)
[2017-09-25] MEDS: Ibuprofen 400 MG Tab PO SCH ×2 (01:06→05:40)
[2017-09-25] MEDS ORDERED: Potassium Chloride 20 MEQ in Premix Bag 2 BAG IV SCH ×2 (01:30→06:00)
[2017-09-25] MEDS: Potassium Chloride 20 MEQ in Premix Bag 1 BAG IV SCH ×2 (01:40→03:38)
[2017-09-25] MEDS: LORazepam 2 MG/ML SDV IVPUSH PRN ×2 (03:13→07:47)
[2017-09-25] MEDS: Magnesium Sulfate/Water 2 GM in Premix Bag 1 BAG IV SCH ×4 (03:39→21:28)
[2017-09-25] MEDS ORDERED: Potassium Chloride 20 MEQ in Premix Bag 1 BAG IV SCH (06:00)
[2017-09-25] MEDS: Dextrose 5%-Lactated Ringers 1,000 ML IV SCH ×2 (06:18→18:50)
[2017-09-25] MEDS ORDERED: Potassium Phosphates 60 MMOLE in Sodium Chloride 0.9% 250 ML IV SCH (06:30)
[2017-09-25] MEDS ORDERED: Potassium Phosphates 30 MMOLE in Sodium Chloride 0.9% 250 ML IV SCH ×4 (07:00)
[2017-09-25] MEDS: Albuterol/Ipratropium 3.0-0.5 MG/3 ML Neb Soln NEB SCH ×4 (07:11→21:26)
[2017-09-25] MEDS: Potassium Phosphates 20 MMOLE in Sodium Chloride 0.9% 250 ML IV SCH ×3 (07:31→14:31)
--- NOTE | 2017-09-25 08:06 | ANES ---
DATE OF SERVICE: 09/24/2017 INDICATIONS: Iris is a 66-year-old female patient of Dr. Gary Lam. Please refer to Dr. Lam's note for previous diagnosis. number is [id number]. I was consulted today. The patient is in our intensive care unit. I was consulted by Dr. Ramirez for respiratory failure to come in and assist patient for intubation. DESCRIPTION OF PROCEDURE: Upon arrival, I found this 66-year-old female patient unresponsive with shallow, tachypneic respirations. I found no contraindication for propofol, and definitely needed intubation. I gave her a total of 150 mg of propofol throughout the scenario here. I was able to open her airway and cannulate the trachea with a #8 endotracheal tube with a rory 3 without difficulty after sedation. She was orally suctioned prior to intubation, and I found no evidence of aspirate at the tracheal opening. After cannulating with the endotracheal tube, I inflated the cuff, had bilateral lung sounds, equal chest rise, and positive end-tidal CO2. I continued ventilating at that time. I then proceeded to locate the left radial artery, prepped with a sterile prep, and cannulated the left radial artery x1 attempt with a #20 arterial catheter, good positive blood flow and an excellent waveform. After insertion, I did secure with a suture that left arterial line, and then taped in sterile drape over. Upon completion of all those, patient's vitals were maintained pre procedure. Saturations were 94 initially prior to intubation, and were at x100% post intubation. Heart rate was maintained in the 140s and blood pressure was 160 systolic. I reported off to the nurse and the team in the room as to what I had injected and the procedure. CONDITION: The patient tolerated the procedures quite well. Jl Eisenberg CRNA /[id number]
--- NOTE | 2017-09-25 08:49 | CR ---
CHEST: Portable CLINICAL HISTORY:Intubation COMPARISON:09/24/2017 FINDINGS: Patient has been intubated. The endotracheal tube is approximately 1.5 cm from the regina. There is an NG tube in the stomach. There are diffuse bilateral pulmonary infiltrates which have inc reased since prior study. IMPRESSION: Endotracheal and nasogastric intubation Increasing diffuse bilateral pulmonary infiltrates
--- NOTE | 2017-09-25 08:54 | US ---
Ultrasound Duplex Lwr Ext Veins Comp bilateral CLINICAL HISTORY: Hypoxia FINDINGS: There is normal flow and compressibility from both common femoral veins downward through th e calf veins. Augmentation is seen at all levels. There is normal phasicity IMPRESSION: No evidence of deep venous thrombosis
[2017-09-25] MEDS: Fluconazole/Normal Saline 400 MG in Premix Bag 1 BAG IV SCH (09:06)
--- NOTE | 2017-09-25 09:12 | CR ---
CHEST: Portable CLINICAL HISTORY:Intubation COMPARISON:09/24/2017 FINDINGS: Endotracheal tube remains in the distal trachea approximately 2 cm from the regina. There is an NG tube in the stomach. There are diffuse bilateral pulmonary infiltrates. There may be some mi nimal improvement since prior study. IMPRESSION: Endotracheal tube and NG tube remain in place Slight decrease in bilateral pulmonary infiltrates
--- NOTE | 2017-09-25 10:49 | PCM.CONSN ---
- General Info Date of Service: 09/25/17 Subjective Update: Ms. Mosley unfortunately developed progressive respiratory compromise late yesterday afternoon requiring intubation and mechanical ventilation. 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 She is receiving adequate sedation and has otherwise been hemodynamically stable.there was a good response to diuretic therapy given last night, with excellent urine output, renal function has remained stable. Chest x- ray shows bilateral fluffy infiltrates consistent with infection versus fluid. Because of intubation and sedation she is unable to provide significant information concerning symptoms or review of systems. - Patient Data Vitals - Most Recent: Last Vital Signs Temp 99.1 F 09/25/17 09:00 Pulse 93 09/25/17 10:00 Resp 27 H 09/25/17 10:00 BP 138/60 09/25/17 10:00 Pulse Ox 100 09/25/17 10:00 Weight - Most Recent: 175 lb 3.2 oz I&O - Last 24 Hours: Intake & Output 09/24/17 09/25/17 09/25/17 22:59 06:59 14:59 Intake Total 3267 Output Total 3135 2350 Balance -3135 917 Lab Results Last 24 Hours: Laboratory Results - last 24 hr 09/24/17 09/24/17 09/24/17 Range/Units 13:51 17:37 17:38 WBC 12.1 H (4.5-11.0) K/uL RBC 4.06 (3.30-5.50) M/uL Hgb 12.0 (12.0-15.0) g/dL Hct 36.8 (36.0-48.0) % MCV 91 (80-98) fL MCH 30 (27-31) pg MCHC 33 (32-36) % Plt Count 236 (150-400) K/uL Add Manual Diff Yes Neutrophils % (Manual) 79 H (36-66) % Lymphocytes % (Manual) 12 L (24-44) % Monocytes % (Manual) 9 H (2-6) % Puncture Site Lt radial ABG pH 7.534 H (7.350-7.450) ABG pCO2 35.1 (35.0-42.0) mmHg ABG pO2 51.9 L (75.0-100.0) mmHg ABG HCO3 29.5 H (22.0-26.0) mmol/L ABG Total CO2 26.0 H (21.0-25.0) mmol/L ABG O2 Saturation 90.1 L (95.0-98.0) % ABG O2 Content 15.0 (15.0-23.0) %vol ABG Base Excess 6.8 mm/L ABG Hemoglobin 12.1 (12.0-16.0) g/dL ABG Oxyhemoglobin 88.3 % ABG Carboxyhemoglobin 1.2 (0.0-1.6) % ABG Methemoglobin 0.8 % Nader Test Pass O2 Delivery Device Nasal cannula Oxygen Flow Rate L Sodium (140-148) mmol/L Potassium (3.6-5.2) mmol/L Chloride (100-108) mmol/L Carbon Dioxide (21-32) mmol/L Anion Gap (5.0-14.0) mmol/L BUN (7-18) mg/dL Creatinine (0.6-1.0) mg/dL Est Cr Clr Drug Dosing mL/min Estimated GFR (MDRD) (>60) Glucose (74-106) mg/dL Lactic Acid (0.4-2.0) mmol/L Calcium (8.5-10.1) mg/dL Phosphorus (2.5-4.9) mg/dL Total Bilirubin (0.2-1.0) mg/dL AST (15-37) U/L ALT (12-78) U/L Alkaline Phosphatase (46-116) U/L Troponin I 0.022 (0.000-0.056) ng/mL NT-Pro-B Natriuret Pep (5-125) pg/mL Total Protein (6.4-8.2) g/dL Albumin (3.4-5.0) g/dL Globulin (2.3-3.5) g/dL Albumin/Globulin Ratio (1.2-2.2) 09/24/17 09/24/17 09/24/17 Range/Units 17:38 17:38 17:42 WBC (4.5-11.0) K/uL RBC (3.30-5.50) M/uL Hgb (12.0-15.0) g/dL Hct (36.0-48.0) % MCV (80-98) fL MCH (27-31) pg MCHC (32-36) % Plt Count (150-400) K/uL Add Manual Diff Neutrophils % (Manual) (36-66) % Lymphocytes % (Manual) (24-44) % Monocytes % (Manual) (2-6) % Puncture Site Lt radial ABG pH 7.311 L (7.350-7.450) ABG pCO2 53.5 H (35.0-42.0) mmHg ABG pO2 167.0 H (75.0-100.0) mmHg ABG HCO3 26.2 H (22.0-26.0) mmol/L ABG Total CO2 24.1 (21.0-25.0) mmol/L ABG O2 Saturation 99.0 H (95.0-98.0) % ABG O2 Content 16.9 (15.0-23.0) %vol ABG Base Excess -0.2 mm/L ABG Hemoglobin 12.1 (12.0-16.0) g/dL ABG Oxyhemoglobin 97.1 % ABG Carboxyhemoglobin 1.0 (0.0-1.6) % ABG Methemoglobin 0.9 % Nader Test Passed O2 Delivery Device Ventilator Oxygen Flow Rate L Sodium 134 L (140-148) mmol/L Potassium 2.8 L* (3.6-5.2) mmol/L Chloride 95 L (100-108) mmol/L Carbon Dioxide 26 (21-32) mmol/L Anion Gap 15.8 H (5.0-14.0) mmol/L BUN 13 (7-18) mg/dL Creatinine 0.9 (0.6-1.0) mg/dL Est Cr Clr Drug Dosing 48.86 mL/min Estimated GFR (MDRD) > 60 (>60) Glucose 228 H (74-106) mg/dL Lactic Acid 4.4 H (0.4-2.0) mmol/L Calcium 7.9 L (8.5-10.1) mg/dL Phosphorus (2.5-4.9) mg/dL Total Bilirubin (0.2-1.0) mg/dL AST (15-37) U/L ALT (12-78) U/L Alkaline Phosphatase (46-116) U/L Troponin I (0.000-0.056) ng/mL NT-Pro-B Natriuret Pep (5-125) pg/mL Total Protein (6.4-8.2) g/dL Albumin (3.4-5.0) g/dL Globulin (2.3-3.5) g/dL Albumin/Globulin Ratio (1.2-2.2) 09/24/17 09/24/17 09/24/17 Range/Units 22:00 22:00 22:00 WBC (4.5-11.0) K/uL RBC (3.30-5.50) M/uL Hgb (12.0-15.0) g/dL Hct (36.0-48.0) % MCV (80-98) fL MCH (27-31) pg MCHC (32-36) % Plt Count (150-400) K/uL Add Manual Diff Neutrophils % (Manual) (36-66) % Lymphocytes % (Manual) (24-44) % Monocytes % (Manual) (2-6) % Puncture Site A-line ABG pH 7.552 H (7.350-7.450) ABG pCO2 37.4 (35.0-42.0) mmHg ABG pO2 97.6 (75.0-100.0) mmHg ABG HCO3 32.9 H (22.0-26.0) mmol/L ABG Total CO2 29.3 H (21.0-25.0) mmol/L ABG O2 Saturation 98.5 H (95.0-98.0) % ABG O2 Content 15.2 (15.0-23.0) %vol ABG Base Excess 9.8 mm/L ABG Hemoglobin 11.2 L (12.0-16.0) g/dL ABG Oxyhemoglobin 95.9 % ABG Carboxyhemoglobin 1.8 H (0.0-1.6) % ABG Methemoglobin 0.8 % Nader Test A-line O2 Delivery Device Ventilator Oxygen Flow Rate L Sodium (140-148) mmol/L Potassium 3.2 L (3.6-5.2) mmol/L Chloride (100-108) mmol/L Carbon Dioxide (21-32) mmol/L Anion Gap (5.0-14.0) mmol/L BUN (7-18) mg/dL Creatinine (0.6-1.0) mg/dL Est Cr Clr Drug Dosing mL/min Estimated GFR (MDRD) (>60) Glucose (74-106) mg/dL Lactic Acid 1.5 (0.4-2.0) mmol/L Calcium (8.5-10.1) mg/dL Phosphorus (2.5-4.9) mg/dL Total Bilirubin (0.2-1.0) mg/dL AST (15-37) U/L ALT (12-78) U/L Alkaline Phosphatase (46-116) U/L Troponin I (0.000-0.056) ng/mL NT-Pro-B Natriuret Pep (5-125) pg/mL Total Protein (6.4-8.2) g/dL Albumin (3.4-5.0) g/dL Globulin (2.3-3.5) g/dL Albumin/Globulin Ratio (1.2-2.2) 09/25/17 09/25/17 09/25/17 Range/Units 04:40 04:40 05:00 WBC 6.0 (4.5-11.0) K/uL RBC 3.46 (3.30-5.50) M/uL Hgb 10.4 L (12.0-15.0) g/dL Hct 30.9 L (36.0-48.0) % MCV 89 (80-98) fL MCH 30 (27-31) pg MCHC 34 (32-36) % Plt Count 186 (150-400) K/uL Add Manual Diff Neutrophils % (Manual) (36-66) % Lymphocytes % (Manual) (24-44) % Monocytes % (Manual) (2-6) % Puncture Site A-line ABG pH 7.641 H* (7.350-7.450) ABG pCO2 29.6 L (35.0-42.0) mmHg ABG pO2 56.5 L (75.0-100.0) mmHg ABG HCO3 32.3 H (22.0-26.0) mmol/L ABG Total CO2 28.7 H (21.0-25.0) mmol/L ABG O2 Saturation 93.6 L (95.0-98.0) % ABG O2 Content 13.5 L (15.0-23.0) %vol ABG Base Excess 10.6 mm/L ABG Hemoglobin 10.5 L (12.0-16.0) g/dL ABG Oxyhemoglobin 92.0 % ABG Carboxyhemoglobin 0.9 (0.0-1.6) % ABG Methemoglobin 0.8 % Nader Test A-line O2 Delivery Device Ventilator Oxygen Flow Rate L Sodium 141 (140-148) mmol/L Potassium 2.9 L* (3.6-5.2) mmol/L Chloride 103 (100-108) mmol/L Carbon Dioxide 32 (21-32) mmol/L Anion Gap 8.9 (5.0-14.0) mmol/L BUN 8 (7-18) mg/dL Creatinine 0.7 (0.6-1.0) mg/dL Est Cr Clr Drug Dosing 62.82 mL/min Estimated GFR (MDRD) > 60 (>60) Glucose 148 H (74-106) mg/dL Lactic Acid (0.4-2.0) mmol/L Calcium 7.7 L (8.5-10.1) mg/dL Phosphorus 0.6 L (2.5-4.9) mg/dL Total Bilirubin 0.5 (0.2-1.0) mg/dL AST 42 H (15-37) U/L ALT 35 (12-78) U/L Alkaline Phosphatase 64 (46-116) U/L Troponin I (0.000-0.056) ng/mL NT-Pro-B Natriuret Pep 2716 H (5-125) pg/mL Total Protein 5.6 L (6.4-8.2) g/dL Albumin 2.1 L (3.4-5.0) g/dL Globulin 3.5 (2.3-3.5) g/dL Albumin/Globulin Ratio 0.6 L (1.2-2.2) 09/25/17 Range/Units 06:26 WBC (4.5-11.0) K/uL RBC (3.30-5.50) M/uL Hgb (12.0-15.0) g/dL Hct (36.0-48.0) % MCV (80-98) fL MCH (27-31) pg MCHC (32-36) % Plt Count (150-400) K/uL Add Manual Diff Neutrophils % (Manual) (36-66) % Lymphocytes % (Manual) (24-44) % Monocytes % (Manual) (2-6) % Puncture Site A-line ABG pH 7.631 H* (7.350-7.450) ABG pCO2 29.1 L (35.0-42.0) mmHg ABG pO2 67.4 L (75.0-100.0) mmHg ABG HCO3 31.1 H (22.0-26.0) mmol/L ABG Total CO2 27.7 H (21.0-25.0) mmol/L ABG O2 Saturation 96.3 (95.0-98.0) % ABG O2 Content 14.0 L (15.0-23.0) %vol ABG Base Excess 9.5 mm/L ABG Hemoglobin 10.5 L (12.0-16.0) g/dL ABG Oxyhemoglobin 94.5 % ABG Carboxyhemoglobin 1.1 (0.0-1.6) % ABG Methemoglobin 0.8 % Nader Test A-line O2 Delivery Device Ventilator Oxygen Flow Rate L Sodium (140-148) mmol/L Potassium (3.6-5.2) mmol/L Chloride (100-108) mmol/L Carbon Dioxide (21-32) mmol/L Anion Gap (5.0-14.0) mmol/L BUN (7-18) mg/dL Creatinine (0.6-1.0) mg/dL Est Cr Clr Drug Dosing mL/min Estimated GFR (MDRD) (>60) Glucose (74-106) mg/dL Lactic Acid (0.4-2.0) mmol/L Calcium (8.5-10.1) mg/dL Phosphorus (2.5-4.9) mg/dL Total Bilirubin (0.2-1.0) mg/dL AST (15-37) U/L ALT (12-78) U/L Alkaline Phosphatase (46-116) U/L Troponin I (0.000-0.056) ng/mL NT-Pro-B Natriuret Pep (5-125) pg/mL Total Protein (6.4-8.2) g/dL Albumin (3.4-5.0) g/dL Globulin (2.3-3.5) g/dL Albumin/Globulin Ratio (1.2-2.2) Andrew Results Last 24 Hours: Microbiology 09/21/17 13:20 Gram Stain - Final Abdomen - Drainage Wound Culture - Final Citrobacter Freundii Enterococcus Avium Anaerobic Culture - Final NO GROWTH AFTER 3 DAYS 09/24/17 20:55 Gram Stain - Final Endotrachial Tube Med Orders - Current: Current Medications Acetaminophen (Tylenol Extra Strength) 1,000 mg PO Q6H [facility], [facility] Last Admin: 09/25/17 05:40 Dose: Not Given Albuterol (Proventil Neb Soln) 2.5 mg NEB Q4H PRN PRN Reason: Dyspnea Albuterol/Ipratropium (Duoneb 3.0-0.5 Mg/3 Ml) 3 ml NEB QIDRT [facility], [facility]1983 Last Admin: 09/25/17 07:11 Dose: 3 ml Alprazolam (Xanax) 0.25 mg PO BEDTIME PRN PRN Reason: ANXIETY Bisacodyl (Dulcolax) 10 mg PO BID [facility], [facility]1983 Last Admin: 09/24/17 23:51 Dose: Not Given Furosemide (Lasix) 20 mg IVPUSH NOW ONE Stop: 09/25/17 10:41 Hydroxyzine HCl (Vistaril) 50 - 100 mg IM Q4H PRN PRN Reason: PAIN Dextrose/Lactated Ringer's (Dextrose 5%-Lactated Ringers) 1,000 mls @ 80 mls/ hr IV ASDIRECTED [facility], [facility]–1983 Last Admin: 09/25/17 06:18 Dose: 80 mls/hr Magnesium Sulfate 2 gm/ Premix 50 mls @ 25 mls/hr IV Q6H [facility]1983 Stop: 09/27/17 05:59 Last Admin: 09/25/17 10:05 Dose: 25 mls/hr Piperacillin/Tazobactam/ (Dextrose 3.375 gm/ Premix) 50 mls @ 100 mls/hr IV Q6H [facility] Last Admin: 09/25/17 06:06 Dose: 100 mls/hr Levofloxacin/Dextrose 750 mg/ (Premix) 150 mls @ 100 mls/hr IV Q24H [facility] Last Admin: 09/24/17 15:08 Dose: 100 mls/hr Heparin Sodium (Porcine) 5,000 (units/ Sodium Chloride) 501 mls @ 0 mls/hr IV ASDIRECTED [facility], [facility]1983 Last Admin: 09/24/17 17:33 Dose: 5 mls/hr Propofol (Diprivan 100 Ml) 100 mls @ 19.073 mls/hr IV TITRATE CADY; Protocol Last Admin: 09/25/17 10:23 Dose: 65 mcg/kg/min, 30.993 mls/hr Potassium Phosphate 20 mmole/ (Sodium Chloride) 256.6667 mls @ 85 mls/hr IV Q3H CADY Stop: 09/25/17 16:29 Last Admin: 09/25/17 07:31 Dose: 85 mls/hr Fluconazole/Sodium Chloride (400 mg/ Premix) 200 mls @ 100 mls/hr IV Q24H [facility] Last Admin: 09/25/17 09:06 Dose: 100 mls/hr Vancomycin HCl 1.25 gm/ Sodium (Chloride) 250 mls @ 166.667 mls/hr IV Q12H [facility] Ibuprofen (Motrin) 400 mg PO Q6H [facility] Last Admin: 09/25/17 05:40 Dose: Not Given Lorazepam (Ativan) 0.5 mg IVPUSH Q2H PRN PRN Reason: Anxiety Last Admin: 09/25/17 07:47 Dose: 0.5 mg Methylprednisolone Sodium Succinate (Solu-Medrol) 40 mg IVPUSH Q6H [facility] Last Admin: 09/25/17 05:38 Dose: 40 mg Metoprolol Succinate (Toprol Xl) 50 mg PO DAILY [facility] Last Admin: 09/24/17 09:32 Dose: 50 mg Ondansetron HCl (Zofran) 4 mg IV Q4H PRN PRN Reason: N/V Last Admin: 09/22/17 20:24 Dose: 4 mg Pantoprazole Sodium (Protonix Iv) 40 mg IV Q24H [facility] Last Admin: 09/24/17 19:44 Dose: 40 mg Scopolamine (Transderm-Scop) 1.5 mg TOP Q72H [facility]1983 Stop: 09/27/17 08:59 Last Admin: 09/24/17 10:19 Dose: 1.5 mg Senna/Docusate Sodium (Senna Plus) 2 tab PO DAILY [facility] Last Admin: 09/24/17 09:29 Dose: 2 tab Venlafaxine HCl (Effexor Xr) 75 mg PO DAILY [facility] Last Admin: 09/24/17 09:29 Dose: 75 mg Discontinued Medications Acetaminophen (Tylenol Extra Strength) 1,000 mg PO ONETIME ONE Stop: 09/21/17 08:01 Last Admin: 09/21/17 08:14 Dose: 1,000 mg Albuterol/Ipratropium (Duoneb 3.0-0.5 Mg/3 Ml) 3 ml NEB ONETIME ONE Stop: 09/23/17 23:59 Last Admin: 09/24/17 00:10 Dose: Not Given Albuterol/Ipratropium (Duoneb 3.0-0.5 Mg/3 Ml) 3 ml NEB Q4H [facility] Last Admin: 09/24/17 11:04 Dose: 3 ml Alvimopan (Entereg) 12 mg PO ONETIME ONE Stop: 09/21/17 08:01 Last Admin: 09/21/17 08:14 Dose: 12 mg Alvimopan (Entereg) 12 mg PO BID [facility]1983 Stop: 09/28/17 09:01 Last Admin: 09/23/17 21:11 Dose: 12 mg Bisacodyl (Dulcolax) 10 mg RECTAL ONETIME ONE Stop: 09/23/17 10:01 Last Admin: 09/23/17 10:11 Dose: 10 mg Bisacodyl (Dulcolax) 10 mg RECTAL ONETIME ONE Stop: 09/24/17 09:01 Last Admin: 09/24/17 10:45 Dose: Not Given Bupivacaine HCl (Marcaine 0.5%) Confirm Administered Dose 50 ml .ROUTE .STK-MED ONE Stop: 09/23/17 06:44 Last Admin: 09/23/17 07:37 Dose: 17.5 ml Ropivacaine 36 ml/Dexamethasone 8 mg/Epinephrine HCl 0.4 mg/ Sodium Chloride 41.6 ml 0 ml NERVRT ASDIRECTED [facility], [facility] Last Admin: 09/23/17 07:30 Dose: 80 syringe Dexamethasone (Dexamethasone) Confirm Administered Dose 4 mg .ROUTE .STK-MED ONE Stop: 09/21/17 07:48 Diphenhydramine HCl (Benadryl) 25 - 50 mg IVPUSH Q6H PRN PRN Reason: ITCHING Fentanyl (Sublimaze) Confirm Administered Dose 100 mcg .ROUTE .STK-MED ONE Stop: 09/21/17 07:51 Fentanyl (Sublimaze) Confirm Administered Dose 250 mcg .ROUTE .STK-MED ONE Stop: 09/21/17 12:23 Fentanyl Citrate (Fentanyl) Confirm Administered Dose 500 mcg .ROUTE .STK-MED ONE Stop: 09/21/17 07:52 Furosemide (Lasix) 20 mg IVPUSH STAT ONE Stop: 09/23/17 07:01 Last Admin: 09/23/17 07:05 Dose: 20 mg Furosemide (Lasix) 20 mg IVPUSH BID@1000,1700 [facility] Stop: 09/23/17 17:01 Last Admin: 09/23/17 17:08 Dose: 20 mg Furosemide (Lasix) 40 mg IVPUSH ONETIME ONE Stop: 09/23/17 21:45 Last Admin: 09/23/17 21:54 Dose: 40 mg Furosemide (Lasix) 20 mg IVPUSH ONETIME ONE Stop: 09/24/17 08:01 Last Admin: 09/24/17 09:23 Dose: 20 mg Furosemide (Lasix) 40 mg IVPUSH NOW ONE Stop: 09/24/17 18:46 Last Admin: 09/24/17 20:02 Dose: 40 mg Glycopyrrolate (Robinul) Confirm Administered Dose 1 mg .ROUTE .STK-MED ONE Stop: 09/21/17 07:48 Heparin Sodium (Porcine) (Heparin Sodium) Confirm Administered Dose 5,000 units .ROUTE .STK-MED ONE Stop: 09/24/17 17:08 Last Admin: 09/24/17 19:34 Dose: Not Given Hydroxyzine HCl (Vistaril) 50 mg IM ONETIME ONE Stop: 09/21/17 14:17 Last Admin: 09/21/17 14:20 Dose: 50 mg Dextrose/Lactated Ringer's (Dextrose 5%-Lactated Ringers) 1,000 mls @ 100 mls/ hr IV ASDIRECTED [facility], [facility]1983 Last Admin: 09/21/17 09:51 Dose: 100 mls/hr Cefoxitin Sodium 2 gm/ Sodium (Chloride) 50 mls @ 100 mls/hr IV ONETIME ONE Stop: 09/21/17 08:29 Last Admin: 09/21/17 20:11 Dose: Not Given Sodium Chloride (Normal Saline) Confirm Administered Dose 10 mls @ as directed .ROUTE .STK-MED ONE Stop: 09/21/17 07:51 Fentanyl 2,500 mcg/ Sodium (Chloride) 250 mls @ 0 mls/hr EPIDUR TITRATE CADY; Protocol Last Admin: 09/23/17 13:05 Dose: 10 mls/hr, 10 mls/hr Dextrose/Lactated Ringer's (Dextrose 5%-Lactated Ringers) 1,000 mls @ 150 mls/ hr IV ASDIRECTED [facility], [facility]1983 Last Admin: 09/23/17 03:10 Dose: 150 mls/hr Cefoxitin Sodium 2 gm/ Sodium (Chloride) 50 mls @ 100 mls/hr IV Q6H CADY Stop: 09/22/17 17:29 Last Admin: 09/22/17 17:34 Dose: 100 mls/hr Lactated Ringer's (Ringers, Lactated) 500 mls @ 5 mls/hr IV ASDIRECTED [facility], [facility] Last Admin: 09/22/17 00:30 Dose: 5 mls/hr Lactated Ringer's (Ringers, Lactated) 500 mls @ 500 mls/hr IV ASDIRECTED [facility], [facility]1983 Potassium Chloride 20 meq/ (Premix) 100 mls @ 50 mls/hr IV ONETIME ONE Stop: 09/24/17 09:59 Last Admin: 09/24/17 09:26 Dose: 50 mls/hr Sodium Chloride (Normal Saline) 90 mls @ 3 mls/sec IV ONETIME ONE Stop: 09/24/17 13:52 Last Admin: 09/24/17 15:34 Dose: Not Given Propofol (Diprivan 100 Ml) Confirm Administered Dose 100 mls @ as directed .ROUTE .STK-MED ONE Stop: 09/24/17 17:03 Last Admin: 09/24/17 19:03 Dose: Not Given Potassium Chloride 40 meq/ (Premix) 100 mls @ 25 mls/hr IV ONETIME ONE Stop: 09/24/17 22:07 Last Admin: 09/25/17 07:21 Dose: Not Given Linezolid 600 mg/ Premix 300 mls @ 300 mls/hr IV Q12H [facility] Last Admin: 09/25/17 08:05 Dose: Not Given Potassium Chloride 20 meq/ (Premix) 100 mls @ 50 mls/hr IV Q2H [facility]1983 Stop: 09/24/17 23:59 Last Admin: 09/24/17 23:03 Dose: 50 mls/hr Vancomycin HCl 2,000 mg/ (Dextrose/Water) 500 mls @ 250 mls/hr IV Q24H [facility]1983 Last Admin: 09/24/17 21:06 Dose: 250 mls/hr Vancomycin HCl 1.25 gm/ Sodium (Chloride) 250 mls @ 166.667 mls/hr IV Q24H [facility]1983 Potassium Chloride 20 meq/ (Premix) 100 mls @ 50 mls/hr IV Q2H [facility]1983 Stop: 09/25/17 02:59 Last Admin: 09/25/17 07:21 Dose: Not Given Potassium Chloride 20 meq/ (Premix) 100 mls @ 50 mls/hr IV Q2H [facility]1983 Stop: 09/25/17 05:29 Last Admin: 09/25/17 03:38 Dose: 50 mls/hr Potassium Chloride 20 meq/ (Premix) 100 mls @ 50 mls/hr IV Q2H [facility]1983 Stop: 09/25/17 09:59 Last Admin: 09/25/17 05:46 Dose: 50 mls/hr Sodium Chloride (Normal Saline) 1,000 mls @ 500 mls/hr IV ASDIRECTED [facility], [facility]–1983 Last Admin: 09/24/17 01:30 Dose: 500 mls/hr Iopamidol (Isovue-370 (76%)) 75 ml IV . DIRECTED [facility], [facility]–1983 Stop: 09/24/17 23:00 Lidocaine HCl (Xylocaine-Mpf 1%) 5 ml INJECT ONETIME ONE Stop: 09/24/17 20:08 Last Admin: 09/24/17 20:31 Dose: 5 ml Lidocaine HCl (Xylocaine-Mpf 1%) 5 ml INJECT ONETIME ONE Stop: 09/25/17 01:31 Last Admin: 09/25/17 01:41 Dose: 5 ml Lidocaine HCl (Xylocaine-Mpf 1%) 2 ml INJECT ONETIME ONE Stop: 09/25/17 05:23 Last Admin: 09/25/17 05:46 Dose: 2 ml Lidocaine/Epinephrine (Xylocaine 1% With Epinephrine 1:100,000) Confirm Administered Dose 50 ml .ROUTE .STK-MED ONE Stop: 09/23/17 06:44 Last Admin: 09/23/17 07:37 Dose: 17.5 ml Meropenem (Merrem) Confirm Administered Dose 500 mg .ROUTE .STK-MED ONE Stop: 09/21/17 07:04 Last Admin: 09/21/17 13:24 Dose: 500 mg Meropenem (Merrem) Confirm Administered Dose 500 mg .ROUTE .STK-MED ONE Stop: 09/23/17 06:44 Last Admin: 09/23/17 07:38 Dose: 500 mg Naloxone HCl (Narcan) 0.1 mg IVPUSH Q5M PRN PRN Reason: RESP RATE LESS THAN 6/MINUTE Naloxone HCl (Narcan) 0.4 mg IV ASDIRECTED PRN PRN Reason: ITCHING Neostigmine Methylsulfate (Neostigmine) Confirm Administered Dose 5 mg .ROUTE .STK-MED ONE Stop: 09/21/17 07:48 Ask About Scop Patch 0 each .XX ONETIME ONE Stop: 09/24/17 08:01 Last Admin: 09/24/17 10:18 Dose: Not Given Ondansetron HCl (Zofran) Confirm Administered Dose 4 mg .ROUTE .STK-MED ONE Stop: 09/21/17 07:48 Potassium Chloride (Klor-Con M20) 20 meq PO TIDMEALS FOR[facility], [facility]–1983 Last Admin: 09/24/17 18:58 Dose: Not Given Propofol (Diprivan 20 Ml) Confirm Administered Dose 200 mg .ROUTE .STK-MED ONE Stop: 09/21/17 07:48 Propofol (Diprivan 20 Ml) Confirm Administered Dose 200 mg .ROUTE .STK-MED ONE Stop: 09/23/17 06:42 Propofol (Diprivan 20 Ml) Confirm Administered Dose 200 mg .ROUTE .STK-MED ONE Stop: 09/24/17 17:28 Last Admin: 09/24/17 19:34 Dose: Not Given Rocuronium Rulo (Zemuron) Confirm Administered Dose 50 mg .ROUTE .STK-MED ONE Stop: 09/21/17 07:48 Scopolamine (Transderm-Scop) 1.5 mg TOP Q72H [facility]1983 Stop: 09/24/17 02:00 Last Admin: 09/21/17 08:37 Dose: 1.5 mg Sodium Chloride (Saline Flush) 10 ml FLUSH ONETIME PRN PRN Reason: PER RADIOLOGY PROTOCOL Stop: 09/24/17 20:00 Succinylcholine Chloride (Quelicin) Confirm Administered Dose 200 mg .ROUTE .STK -MED ONE Stop: 09/21/17 07:48 Succinylcholine Chloride (Quelicin) Confirm Administered Dose 200 mg .ROUTE .STK -MED ONE Stop: 09/24/17 17:28 Last Admin: 09/24/17 19:34 Dose: Not Given Tramadol HCl (Ultram) 50 mg PO Q6H [facility]1983 Last Admin: 09/24/17 05:13 Dose: Not Given Vancomycin HCl (Vancomycin) 0 gm IV .PHARMACY TO DOSE CADY Stop: 09/25/17 07:30 - Exam Quality Assessment: Supplemental Oxygen (intubation with mechanical ventilation) , Urine Catheter, DVT Prophylaxis General: Sedated Lungs: Decreased Breath Sounds, Rales. No: Rhonchi, Wheezing Cardiovascular: Regular Rate, Regular Rhythm, No Murmurs GI/Abdominal Exam: Soft, No Organomegaly, No Distention Extremities: Non-Tender, Pedal Edema Skin: Warm, Dry Consult PN Assessment/Plan Procedures: Procedures ASSAY OF CREATININE (05/25/17) CONTRAST X-RAY EXAM OF COLON (05/15/17) CT ABD & PELV W/CONTRAST (05/25/17) DIAGNOSTIC COLONOSCOPY (05/15/17) ROUTINE VENIPUNCTURE (05/25/17) SCR MAMMO BI INCL CAD (04/03/17) Problem List Initiated/Reviewed/Updated: Yes My Orders Last 24 Hours: My Active Orders 09/24/17 10:40 Echo Comp wo Cont [US] Stat 09/24/17 14:00 Levofloxacin/Dextrose 5%-Water [Levaquin in D5W 750 MG/150 ML] 750 mg Premix Bag 1 bag IV Q24H 09/24/17 14:01 Patient Status [ADT] Routine 09/24/17 14:07 Albuterol [Proventil Neb Soln] 2.5 mg NEB Q4H PRN 09/24/17 14:09 RT Aerosol Therapy [RC] ASDIRECTED 09/24/17 15:00 Albuterol/Ipratropium [DuoNeb 3.0-0.5 MG/3 ML] 3 ml NEB QIDRT 09/24/17 15:25 LORazepam [Ativan] 0.5 mg IVPUSH Q2H PRN 09/24/17 17:15 Heparin Sodium 5,000 units Sodium Chloride 0.9% [Normal Saline] 500 ml IV ASDIRECTED 09/24/17 17:37 EKG 12 Lead [EK] Stat 09/24/17 17:42 Mechanical Ventilation [RT Ventilator, Adult] [RC] Q2H 09/24/17 17:43 Desired Level of Sedation (RASS) [AST] Click to Edit 09/24/17 17:45 Gastrointestinal Tube Mgmt [RC] ASDIRECTED Propofol [Diprivan 100 ML] 100 ml IV TITRATE Nasogastric Orogastric Tube Insertion [OM.PC] Routine 09/24/17 18:00 methylPREDNISolone Sod Succ [Solu-MEDROL] 40 mg IVPUSH Q6H 09/24/17 18:43 Blood Culture x2 Reflex Set [OM.PC] Urgent 09/24/17 18:45 CULTURE BLOOD [BC] Stat CULTURE BLOOD [BC] Stat 09/24/17 20:55 CULTURE RESPIRATORY + SMEAR [RM] Routine 09/24/17 Dinner NPO Now [Nothing per Oral Now Diet] [DIET] 09/25/17 05:19 RT Communication [RC] Click to Edit 09/25/17 10:30 Vancomycin 1.25 gm Sodium Chloride 0.9% [Normal Saline] 250 ml IV Q12H 09/25/17 10:40 BLOOD GAS ARTERIAL [BG] Stat Furosemide [Lasix] 20 mg IVPUSH NOW ONE 09/25/17 10:41 Ang Chest [CT] Stat 09/26/17 05:00 Chest 1V Frontal [CR] DAILY 09/27/17 05:00 Chest 1V Frontal [CR] DAILY 09/28/17 05:00 Chest 1V Frontal [CR] DAILY 09/29/17 05:00 Chest 1V Frontal [CR] DAILY 09/30/17 05:00 Chest 1V Frontal [CR] DAILY Plan: ASSESSMENT AND RECOMMENDATIONS ACUTE HYPOXIC RESPIRATORY FAILURE-unfortunately she progressed late yesterday afternoon to respiratory failure requiring intubation and mechanical ventilation , his developed a respiratory alkalosis but otherwise has ventilated relatively easily. -continue current level of ventilatory support -Supplemental oxygen as needed -Nebulized albuterol and duo nebs -Follow-up blood gases on noninvasive positive pressure ventilation -Expanded IV antibiotic coverage with Zosyn, levofloxacin, and vancomycin pending culture results -Bilateral lower extremity venous Doppler studies to rule out DVT -CT angiogram of the chest today -if she remains stable plan for spontaneous breathing trial in a.m. STATUS POST COLON SURGERY -Postoperative care per Dr. Lam
[2017-09-25] MEDS ORDERED: Furosemide 20 MG/2 ML VIAL IV ONE (10:50)
[2017-09-25] MEDS ORDERED: Sodium Chloride 0.9% 10 ML Syringe FLUSH PRN (11:19)
[2017-09-25] MEDS ORDERED: Iopamidol 755 Mg/ML 100 ML Bottle IV SCH (11:30)
--- NOTE | 2017-09-25 11:43 | CT ---
CT Ang Chest CLINICAL HISTORY: Respiratory failure TECHNIQUE: Thin section axial contiguous tomographic sections were taken through the chest before and after bolus IV iodinated contrast administration. Coronal and sagittal images were reconstructed. Au to dosage reduction and iterative reconstruction techniques employed. FINDINGS: Patient has diffuse bilateral pulmonary infiltrates similar to prior chest x-rays No filling defects are identified in the pulmonary arteries. The aorta is free of aneurysm or dissect ion. There are no effusions. The there is some air along the anterior lateral abdominal wall contiguo us to the liver. The this may be free intraperitoneal air related to patient's prior surgery. This co uld also be an interposed bowel loop which is suggested on the portable chest x-rays. IMPRESSION: No evidence of pulmonary embolus Moderate diffuse bilateral pulmonary infiltrates persist The air under the right hemidiaphragm the be within interposed bowel or postoperative free intraperit [place] air
[2017-09-25] MEDS: Levofloxacin/Dextrose 5%-Water 750 MG in Premix Bag 1 BAG IV SCH (14:31)
[2017-09-25] MEDS: HYDROmorphone 0.5 MG/0.5 ML Syringe IVPUSH PRN ×3 (15:34→23:42)
[2017-09-25] MEDS: Pantoprazole 40 MG Vial IV SCH (16:35)
[2017-09-26] MEDS: Potassium Chloride 20 MEQ in Premix Bag 1 BAG IV SCH ×4 (00:50→07:29)
[2017-09-26] MEDS: Piperacillin/Tazobactam/Dext 3.375 GM in Premix Bag 1 BAG IV SCH ×4 (00:51→17:48)
[2017-09-26] MEDS ORDERED: POTASSIUM CHLORIDE IV SCH (01:00)
[2017-09-26] MEDS: Magnesium Sulfate/Water 2 GM in Premix Bag 1 BAG IV SCH ×4 (04:23→21:55)
[2017-09-26] MEDS ORDERED: Lidocaine 1% 2 ML ONE (04:48)
[2017-09-26] MEDS: methylPREDNISolone Sodium Succinate 40 MG/1 ML SDV IVPUSH SCH ×3 (05:52→17:47)
[2017-09-26] MEDS: Dextrose 5%-Lactated Ringers 1,000 ML IV SCH (05:58)
[2017-09-26] MEDS: Albuterol/Ipratropium 3.0-0.5 MG/3 ML Neb Soln NEB SCH ×4 (07:52→21:00)
[2017-09-26] MEDS: Fluconazole/Normal Saline 400 MG in Premix Bag 1 BAG IV SCH (08:33)
[2017-09-26] MEDS: Furosemide 20 MG/2 ML VIAL IVPUSH SCH ×2 (08:38→21:00)
[2017-09-26] MEDS: HYDROmorphone 0.5 MG/0.5 ML Syringe IVPUSH PRN ×3 (08:45→22:09)
--- NOTE | 2017-09-26 09:37 | PCM.CONSN ---
- General Info Date of Service: 09/26/17 Subjective Update: Ms. Mosley has been stable, except for an episode of increased respiratory compromise that resolved after she was placed back on full ventilatory support. She is done well since that time, current FiO2 requirement is 45% in it's felt that she is not quite ready for weaning trial this morning. Hemodynamics have been good and she has remained afebrile. Currently unable to provide information concerning symptoms or review of systems because of sedation and lethargy - Patient Data Vitals - Most Recent: Last Vital Signs Temp 97.3 F 09/26/17 08:00 Pulse 87 09/26/17 07:52 Resp 23 H 09/26/17 09:00 BP 133/65 09/26/17 09:00 Pulse Ox 95 09/26/17 09:00 Weight - Most Recent: 173 lb 4.8 oz I&O - Last 24 Hours: Intake & Output 09/25/17 09/26/17 09/26/17 22:59 06:59 14:59 Intake Total 2795 2011 523 Output Total 1100 750 185 Balance 1695 1261 338 Lab Results Last 24 Hours: Laboratory Results - last 24 hr 09/25/17 09/25/17 09/25/17 Range/Units 10:46 17:00 17:00 WBC (4.5-11.0) K/uL RBC (3.30-5.50) M/uL Hgb (12.0-15.0) g/dL Hct (36.0-48.0) % MCV (80-98) fL MCH (27-31) pg MCHC (32-36) % Plt Count (150-400) K/uL Puncture Site A-line ABG pH 7.557 H (7.350-7.450) ABG pCO2 34.4 L (35.0-42.0) mmHg ABG pO2 79.9 (75.0-100.0) mmHg ABG HCO3 30.6 H (22.0-26.0) mmol/L ABG Total CO2 27.7 H (21.0-25.0) mmol/L ABG O2 Saturation 96.8 (95.0-98.0) % ABG O2 Content 13.6 L (15.0-23.0) %vol ABG Base Excess 8.0 mm/L ABG Hemoglobin 10.1 L (12.0-16.0) g/dL ABG Oxyhemoglobin 95.2 % ABG Carboxyhemoglobin 0.8 (0.0-1.6) % ABG Methemoglobin 0.9 % Nader Test A-line O2 Delivery Device Ventilator Oxygen Flow Rate L Sodium (140-148) mmol/L Potassium (3.6-5.2) mmol/L Chloride (100-108) mmol/L Carbon Dioxide (21-32) mmol/L Anion Gap (5.0-14.0) mmol/L BUN (7-18) mg/dL Creatinine (0.6-1.0) mg/dL Est Cr Clr Drug Dosing mL/min Estimated GFR (MDRD) (>60) Glucose (74-106) mg/dL Lactic Acid 2.2 H (0.4-2.0) mmol/L Calcium (8.5-10.1) mg/dL Phosphorus 4.1 (2.5-4.9) mg/dL Total Bilirubin (0.2-1.0) mg/dL AST (15-37) U/L ALT (12-78) U/L Alkaline Phosphatase (46-116) U/L NT-Pro-B Natriuret Pep (5-125) pg/mL Total Protein (6.4-8.2) g/dL Albumin (3.4-5.0) g/dL Globulin (2.3-3.5) g/dL Albumin/Globulin Ratio (1.2-2.2) 09/25/17 09/25/17 09/26/17 Range/Units 23:59 23:59 04:00 WBC (4.5-11.0) K/uL RBC (3.30-5.50) M/uL Hgb (12.0-15.0) g/dL Hct (36.0-48.0) % MCV (80-98) fL MCH (27-31) pg MCHC (32-36) % Plt Count (150-400) K/uL Puncture Site A-line A-line ABG pH 7.579 H 7.570 H (7.350-7.450) ABG pCO2 31.4 L 31.9 L (35.0-42.0) mmHg ABG pO2 65.5 L 107.0 H (75.0-100.0) mmHg ABG HCO3 29.5 H 29.3 H (22.0-26.0) mmol/L ABG Total CO2 26.5 H 26.5 H (21.0-25.0) mmol/L ABG O2 Saturation 94.7 L 98.6 H (95.0-98.0) % ABG O2 Content 13.2 L 13.5 L (15.0-23.0) %vol ABG Base Excess 7.4 7.1 mm/L ABG Hemoglobin 10.2 L 9.9 L (12.0-16.0) g/dL ABG Oxyhemoglobin 92.0 95.7 % ABG Carboxyhemoglobin 2.0 H 2.0 H (0.0-1.6) % ABG Methemoglobin 0.8 0.9 % Nader Test A-line A-line O2 Delivery Device Ventilator Ventilator Oxygen Flow Rate L Sodium 142 (140-148) mmol/L Potassium 2.7 L* (3.6-5.2) mmol/L Chloride 104 (100-108) mmol/L Carbon Dioxide 29 (21-32) mmol/L Anion Gap 11.7 (5.0-14.0) mmol/L BUN 7 (7-18) mg/dL Creatinine 0.7 (0.6-1.0) mg/dL Est Cr Clr Drug Dosing 62.82 mL/min Estimated GFR (MDRD) > 60 (>60) Glucose 168 H (74-106) mg/dL Lactic Acid (0.4-2.0) mmol/L Calcium 7.2 L (8.5-10.1) mg/dL Phosphorus (2.5-4.9) mg/dL Total Bilirubin (0.2-1.0) mg/dL AST (15-37) U/L ALT (12-78) U/L Alkaline Phosphatase (46-116) U/L NT-Pro-B Natriuret Pep (5-125) pg/mL Total Protein (6.4-8.2) g/dL Albumin (3.4-5.0) g/dL Globulin (2.3-3.5) g/dL Albumin/Globulin Ratio (1.2-2.2) 06/30/18 06/30/18 06/30/18 Range/Units 04:00 04:27 05:00 WBC 8.0 (4.5-11.0) K/uL RBC 3.27 L (3.30-5.50) M/uL Hgb 9.7 L (12.0-15.0) g/dL Hct 29.8 L (36.0-48.0) % MCV 91 (80-98) fL MCH 30 (27-31) pg MCHC 33 (32-36) % Plt Count 186 (150-400) K/uL Puncture Site ABG pH (7.350-7.450) ABG pCO2 (35.0-42.0) mmHg ABG pO2 (75.0-100.0) mmHg ABG HCO3 (22.0-26.0) mmol/L ABG Total CO2 (21.0-25.0) mmol/L ABG O2 Saturation (95.0-98.0) % ABG O2 Content (15.0-23.0) %vol ABG Base Excess mm/L ABG Hemoglobin (12.0-16.0) g/dL ABG Oxyhemoglobin % ABG Carboxyhemoglobin (0.0-1.6) % ABG Methemoglobin % Nader Test O2 Delivery Device Oxygen Flow Rate L Sodium 142 (140-148) mmol/L Potassium 3.3 L (3.6-5.2) mmol/L Chloride 106 (100-108) mmol/L Carbon Dioxide 31 (21-32) mmol/L Anion Gap 8.3 (5.0-14.0) mmol/L BUN 7 (7-18) mg/dL Creatinine 0.6 (0.6-1.0) mg/dL Est Cr Clr Drug Dosing 73.29 mL/min Estimated GFR (MDRD) > 60 (>60) Glucose 171 H (74-106) mg/dL Lactic Acid 1.4 (0.4-2.0) mmol/L Calcium 7.0 L (8.5-10.1) mg/dL Phosphorus 3.0 (2.5-4.9) mg/dL Total Bilirubin 0.4 (0.2-1.0) mg/dL AST 44 H (15-37) U/L ALT 40 (12-78) U/L Alkaline Phosphatase 72 (46-116) U/L NT-Pro-B Natriuret Pep 870 H (5-125) pg/mL Total Protein 5.5 L (6.4-8.2) g/dL Albumin 1.9 L (3.4-5.0) g/dL Globulin 3.6 H (2.3-3.5) g/dL Albumin/Globulin Ratio 0.5 L (1.2-2.2) Andrew Results Last 24 Hours: Microbiology 09/24/17 20:55 Gram Stain - Final Endotrachial Tube Respiratory Culture - Preliminary Yeast Isolated 09/24/17 18:45 Aerobic Blood Culture - Preliminary Blood - Venous - Lab Draw NO GROWTH AFTER 1 DAY Anaerobic Blood Culture - Preliminary NO GROWTH AFTER 1 DAY 09/24/17 18:45 Aerobic Blood Culture - Preliminary Blood - Venous NO GROWTH AFTER 1 DAY Anaerobic Blood Culture - Preliminary NO GROWTH AFTER 1 DAY 09/21/17 13:20 Gram Stain - Final Abdomen - Drainage Wound Culture - Final Citrobacter Freundii Enterococcus Avium Anaerobic Culture - Final NO GROWTH AFTER 3 DAYS Med Orders - Current: Current Medications Acetaminophen (Tylenol Extra Strength) 1,000 mg PO Q6H [facility] Last Admin: 09/25/17 05:40 Dose: Not Given Albuterol (Proventil Neb Soln) 2.5 mg NEB Q4H PRN PRN Reason: Dyspnea Albuterol/Ipratropium (Duoneb 3.0-0.5 Mg/3 Ml) 3 ml NEB QIDRT [facility] Last Admin: 09/26/17 07:52 Dose: 3 ml Alprazolam (Xanax) 0.25 mg PO BEDTIME PRN PRN Reason: ANXIETY Bisacodyl (Dulcolax) 10 mg PO BID [facility] Last Admin: 09/24/17 23:51 Dose: Not Given Furosemide (Lasix) 20 mg IVPUSH Q12H [facility] Last Admin: 09/26/17 08:38 Dose: 20 mg Hydromorphone HCl (Dilaudid) 0.5 mg IVPUSH Q2H PRN PRN Reason: Pain Last Admin: 09/26/17 08:45 Dose: 0.5 mg Hydroxyzine HCl (Vistaril) 50 - 100 mg IM Q4H PRN PRN Reason: PAIN Magnesium Sulfate 2 gm/ Premix 50 mls @ 25 mls/hr IV Q6H [facility] Stop: 09/27/17 05:59 Last Admin: 09/26/17 04:23 Dose: 25 mls/hr Piperacillin/Tazobactam/ (Dextrose 3.375 gm/ Premix) 50 mls @ 100 mls/hr IV Q6H [facility] Last Admin: 09/26/17 05:56 Dose: 100 mls/hr Levofloxacin/Dextrose 750 mg/ (Premix) 150 mls @ 100 mls/hr IV Q24H [facility] Last Admin: 09/25/17 14:31 Dose: 100 mls/hr Heparin Sodium (Porcine) 5,000 (units/ Sodium Chloride) 501 mls @ 0 mls/hr IV ASDIRECTED [facility] Last Admin: 09/24/17 17:33 Dose: 5 mls/hr Propofol (Diprivan 100 Ml) 100 mls @ 19.073 mls/hr IV TITRATE [facility]; Protocol Last Admin: 09/26/17 07:33 Dose: 60 mcg/kg/min, 28.609 mls/hr Fluconazole/Sodium Chloride (400 mg/ Premix) 200 mls @ 100 mls/hr IV Q24H [facility] Last Admin: 09/26/17 08:33 Dose: 100 mls/hr Vancomycin HCl 1.25 gm/ Sodium (Chloride) 250 mls @ 166.667 mls/hr IV Q12H [facility] Last Admin: 09/25/17 22:19 Dose: 166.667 mls/hr Ibuprofen (Motrin) 400 mg PO Q6H [facility] Last Admin: 09/25/17 05:40 Dose: Not Given Methylprednisolone Sodium Succinate (Solu-Medrol) 40 mg IVPUSH Q6H [facility] Last Admin: 09/26/17 05:52 Dose: 40 mg Metoprolol Succinate (Toprol Xl) 50 mg PO DAILY [facility] Last Admin: 09/24/17 09:32 Dose: 50 mg Ondansetron HCl (Zofran) 4 mg IV Q4H PRN PRN Reason: N/V Last Admin: 09/22/17 20:24 Dose: 4 mg Pantoprazole Sodium (Protonix Iv) 40 mg IV Q24H [facility] Last Admin: 09/25/17 16:35 Dose: 40 mg Scopolamine (Transderm-Scop) 1.5 mg TOP Q72H [facility] Stop: 09/27/17 08:59 Last Admin: 09/24/17 10:19 Dose: 1.5 mg Senna/Docusate Sodium (Senna Plus) 2 tab PO DAILY [facility] Last Admin: 09/24/17 09:29 Dose: 2 tab Venlafaxine HCl (Effexor Xr) 75 mg PO DAILY [facility] Last Admin: 09/24/17 09:29 Dose: 75 mg Discontinued Medications Acetaminophen (Tylenol Extra Strength) 1,000 mg PO ONETIME ONE Stop: 09/21/17 08:01 Last Admin: 09/21/17 08:14 Dose: 1,000 mg Albuterol/Ipratropium (Duoneb 3.0-0.5 Mg/3 Ml) 3 ml NEB ONETIME ONE Stop: 09/23/17 23:59 Last Admin: 09/24/17 00:10 Dose: Not Given Albuterol/Ipratropium (Duoneb 3.0-0.5 Mg/3 Ml) 3 ml NEB Q4H [facility] Last Admin: 09/24/17 11:04 Dose: 3 ml Alvimopan (Entereg) 12 mg PO ONETIME ONE Stop: 09/21/17 08:01 Last Admin: 09/21/17 08:14 Dose: 12 mg Alvimopan (Entereg) 12 mg PO BID [facility] Stop: 09/28/17 09:01 Last Admin: 09/23/17 21:11 Dose: 12 mg Bisacodyl (Dulcolax) 10 mg RECTAL ONETIME ONE Stop: 09/23/17 10:01 Last Admin: 09/23/17 10:11 Dose: 10 mg Bisacodyl (Dulcolax) 10 mg RECTAL ONETIME ONE Stop: 09/24/17 09:01 Last Admin: 09/24/17 10:45 Dose: Not Given Bupivacaine HCl (Marcaine 0.5%) Confirm Administered Dose 50 ml .ROUTE .STK-MED ONE Stop: 09/23/17 06:44 Last Admin: 09/23/17 07:37 Dose: 17.5 ml Ropivacaine 36 ml/Dexamethasone 8 mg/Epinephrine HCl 0.4 mg/ Sodium Chloride 41.6 ml 0 ml NERVRT ASDIRECTED [facility] Last Admin: 09/23/17 07:30 Dose: 80 syringe Dexamethasone (Dexamethasone) Confirm Administered Dose 4 mg .ROUTE .STK-MED ONE Stop: 09/21/17 07:48 Diphenhydramine HCl (Benadryl) 25 - 50 mg IVPUSH Q6H PRN PRN Reason: ITCHING Fentanyl (Sublimaze) Confirm Administered Dose 100 mcg .ROUTE .STK-MED ONE Stop: 09/21/17 07:51 Fentanyl (Sublimaze) Confirm Administered Dose 250 mcg .ROUTE .STK-MED ONE Stop: 09/21/17 12:23 Fentanyl Citrate (Fentanyl) Confirm Administered Dose 500 mcg .ROUTE .STK-MED ONE Stop: 09/21/17 07:52 Furosemide (Lasix) 20 mg IVPUSH STAT ONE Stop: 09/23/17 07:01 Last Admin: 09/23/17 07:05 Dose: 20 mg Furosemide (Lasix) 20 mg IVPUSH BID@1000,1700 [facility] Stop: 09/23/17 17:01 Last Admin: 09/23/17 17:08 Dose: 20 mg Furosemide (Lasix) 40 mg IVPUSH ONETIME ONE Stop: 09/23/17 21:45 Last Admin: 09/23/17 21:54 Dose: 40 mg Furosemide (Lasix) 20 mg IVPUSH ONETIME ONE Stop: 09/24/17 08:01 Last Admin: 09/24/17 09:23 Dose: 20 mg Furosemide (Lasix) 40 mg IVPUSH NOW ONE Stop: 09/24/17 18:46 Last Admin: 09/24/17 20:02 Dose: 40 mg Furosemide (Lasix) 20 mg IV ONETIME ONE Stop: 09/25/17 10:51 Last Admin: 09/25/17 12:03 Dose: 20 mg Glycopyrrolate (Robinul) Confirm Administered Dose 1 mg .ROUTE .STK-MED ONE Stop: 09/21/17 07:48 Heparin Sodium (Porcine) (Heparin Sodium) Confirm Administered Dose 5,000 units .ROUTE .STK-MED ONE Stop: 09/24/17 17:08 Last Admin: 09/24/17 19:34 Dose: Not Given Hydroxyzine HCl (Vistaril) 50 mg IM ONETIME ONE Stop: 09/21/17 14:17 Last Admin: 09/21/17 14:20 Dose: 50 mg Dextrose/Lactated Ringer's (Dextrose 5%-Lactated Ringers) 1,000 mls @ 100 mls/ hr IV ASDIRECTED [facility] Last Admin: 09/21/17 09:51 Dose: 100 mls/hr Cefoxitin Sodium 2 gm/ Sodium (Chloride) 50 mls @ 100 mls/hr IV ONETIME ONE Stop: 09/21/17 08:29 Last Admin: 09/21/17 20:11 Dose: Not Given Sodium Chloride (Normal Saline) Confirm Administered Dose 10 mls @ as directed .ROUTE .STK-MED ONE Stop: 09/21/17 07:51 Fentanyl 2,500 mcg/ Sodium (Chloride) 250 mls @ 0 mls/hr EPIDUR TITRATE [facility]; Protocol Last Admin: 09/23/17 13:05 Dose: 10 mls/hr, 10 mls/hr Dextrose/Lactated Ringer's (Dextrose 5%-Lactated Ringers) 1,000 mls @ 150 mls/ hr IV ASDIRECTED [facility] Last Admin: 09/23/17 03:10 Dose: 150 mls/hr Cefoxitin Sodium 2 gm/ Sodium (Chloride) 50 mls @ 100 mls/hr IV Q6H [facility] Stop: 09/22/17 17:29 Last Admin: 09/22/17 17:34 Dose: 100 mls/hr Lactated Ringer's (Ringers, Lactated) 500 mls @ 5 mls/hr IV ASDIRECTED [facility] Last Admin: 09/22/17 00:30 Dose: 5 mls/hr Lactated Ringer's (Ringers, Lactated) 500 mls @ 500 mls/hr IV ASDIRECTED [facility] Dextrose/Lactated Ringer's (Dextrose 5%-Lactated Ringers) 1,000 mls @ 80 mls/ hr IV ASDIRECTED [facility] Last Admin: 09/26/17 05:58 Dose: 80 mls/hr Potassium Chloride 20 meq/ (Premix) 100 mls @ 50 mls/hr IV ONETIME ONE Stop: 09/24/17 09:59 Last Admin: 09/24/17 09:26 Dose: 50 mls/hr Sodium Chloride (Normal Saline) 90 mls @ 3 mls/sec IV ONETIME ONE Stop: 09/24/17 13:52 Last Admin: 09/24/17 15:34 Dose: Not Given Propofol (Diprivan 100 Ml) Confirm Administered Dose 100 mls @ as directed .ROUTE .STK-MED ONE Stop: 09/24/17 17:03 Last Admin: 09/24/17 19:03 Dose: Not Given Potassium Chloride 40 meq/ (Premix) 100 mls @ 25 mls/hr IV ONETIME ONE Stop: 09/24/17 22:07 Last Admin: 09/25/17 07:21 Dose: Not Given Linezolid 600 mg/ Premix 300 mls @ 300 mls/hr IV Q12H [facility] Last Admin: 09/25/17 08:05 Dose: Not Given Potassium Chloride 20 meq/ (Premix) 100 mls @ 50 mls/hr IV Q2H [facility] Stop: 09/24/17 23:59 Last Admin: 09/24/17 23:03 Dose: 50 mls/hr Vancomycin HCl 2,000 mg/ (Dextrose/Water) 500 mls @ 250 mls/hr IV Q24H [facility] Last Admin: 09/24/17 21:06 Dose: 250 mls/hr Vancomycin HCl 1.25 gm/ Sodium (Chloride) 250 mls @ 166.667 mls/hr IV Q24H [facility] Potassium Chloride 20 meq/ (Premix) 100 mls @ 50 mls/hr IV Q2H [facility] Stop: 09/25/17 02:59 Last Admin: 09/25/17 07:21 Dose: Not Given Potassium Chloride 20 meq/ (Premix) 100 mls @ 50 mls/hr IV Q2H [facility] Stop: 09/25/17 05:29 Last Admin: 09/25/17 03:38 Dose: 50 mls/hr Potassium Chloride 20 meq/ (Premix) 100 mls @ 50 mls/hr IV Q2H [facility] Stop: 09/25/17 09:59 Last Admin: 09/25/17 05:46 Dose: 50 mls/hr Sodium Chloride (Normal Saline) 1,000 mls @ 500 mls/hr IV ASDIRECTED [facility] Last Admin: 09/24/17 01:30 Dose: 500 mls/hr Potassium Phosphate 20 mmole/ (Sodium Chloride) 256.6667 mls @ 85 mls/hr IV Q3H [facility] Stop: 09/25/17 16:29 Last Admin: 09/25/17 14:31 Dose: 85 mls/hr Sodium Chloride (Normal Saline) 70 mls @ 3 mls/sec IV ONETIME ONE Stop: 09/25/17 11:20 Last Admin: 09/25/17 12:16 Dose: 3 mls/sec Potassium Chloride 20 meq/ (Premix) 0 mls @ 50 mls/hr IV Q2H [facility] Stop: 09/26/17 07:00 Potassium Chloride 20 meq/ (Premix) 100 mls @ 50 mls/hr IV Q2H [facility] Stop: 09/26/17 08:59 Last Admin: 09/26/17 07:29 Dose: 50 mls/hr Lidocaine HCl (Xylocaine-Mpf 1%) Confirm Administered Dose 2 mls @ as directed .ROUTE .STK-MED ONE Stop: 09/26/17 04:49 Last Admin: 09/26/17 04:55 Dose: 2 mls/hr Iopamidol (Isovue-370 (76%)) 75 ml IV . DIRECTED [facility] Stop: 09/24/17 23:00 Last Admin: 09/25/17 11:24 Dose: 75 ml Iopamidol (Isovue-370 (76%)) 75 ml IV . DIRECTED [facility] Stop: 09/25/17 14:00 Lidocaine HCl (Xylocaine-Mpf 1%) 5 ml INJECT ONETIME ONE Stop: 09/24/17 20:08 Last Admin: 09/24/17 20:31 Dose: 5 ml Lidocaine HCl (Xylocaine-Mpf 1%) 5 ml INJECT ONETIME ONE Stop: 09/25/17 01:31 Last Admin: 09/25/17 01:41 Dose: 5 ml Lidocaine HCl (Xylocaine-Mpf 1%) 2 ml INJECT ONETIME ONE Stop: 09/25/17 05:23 Last Admin: 09/25/17 05:46 Dose: 2 ml Lidocaine HCl (Xylocaine-Mpf 1%) 5 ml INJECT ONETIME ONE Stop: 09/26/17 00:29 Last Admin: 09/26/17 00:49 Dose: 5 ml Lidocaine/Epinephrine (Xylocaine 1% With Epinephrine 1:100,000) Confirm Administered Dose 50 ml .ROUTE .STK-MED ONE Stop: 09/23/17 06:44 Last Admin: 09/23/17 07:37 Dose: 17.5 ml Lorazepam (Ativan) 0.5 mg IVPUSH Q2H PRN PRN Reason: Anxiety Last Admin: 09/25/17 07:47 Dose: 0.5 mg Meropenem (Merrem) Confirm Administered Dose 500 mg .ROUTE .STK-MED ONE Stop: 09/21/17 07:04 Last Admin: 09/21/17 13:24 Dose: 500 mg Meropenem (Merrem) Confirm Administered Dose 500 mg .ROUTE .STK-MED ONE Stop: 09/23/17 06:44 Last Admin: 09/23/17 07:38 Dose: 500 mg Naloxone HCl (Narcan) 0.1 mg IVPUSH Q5M PRN PRN Reason: RESP RATE LESS THAN 6/MINUTE Naloxone HCl (Narcan) 0.4 mg IV ASDIRECTED PRN PRN Reason: ITCHING Neostigmine Methylsulfate (Neostigmine) Confirm Administered Dose 5 mg .ROUTE .STK-MED ONE Stop: 09/21/17 07:48 Ask About Scop Patch 0 each .XX ONETIME ONE Stop: 09/24/17 08:01 Last Admin: 09/24/17 10:18 Dose: Not Given Ondansetron HCl (Zofran) Confirm Administered Dose 4 mg .ROUTE .STK-MED ONE Stop: 09/21/17 07:48 Potassium Chloride (Klor-Con M20) 20 meq PO TIDMEALS [facility] Last Admin: 09/24/17 18:58 Dose: Not Given Propofol (Diprivan 20 Ml) Confirm Administered Dose 200 mg .ROUTE .STK-MED ONE Stop: 09/21/17 07:48 Propofol (Diprivan 20 Ml) Confirm Administered Dose 200 mg .ROUTE .STK-MED ONE Stop: 09/23/17 06:42 Propofol (Diprivan 20 Ml) Confirm Administered Dose 200 mg .ROUTE .STK-MED ONE Stop: 09/24/17 17:28 Last Admin: 09/24/17 19:34 Dose: Not Given Rocuronium [place] (Zemuron) Confirm Administered Dose 50 mg .ROUTE .STK-MED ONE Stop: 09/21/17 07:48 Scopolamine (Transderm-Scop) 1.5 mg TOP Q72H [facility] Stop: 09/24/17 02:00 Last Admin: 09/21/17 08:37 Dose: 1.5 mg Sodium Chloride (Saline Flush) 10 ml FLUSH ONETIME PRN PRN Reason: PER RADIOLOGY PROTOCOL Stop: 09/24/17 20:00 Last Admin: 09/25/17 11:23 Dose: 10 ml Sodium Chloride (Saline Flush) 10 ml FLUSH ONETIME PRN PRN Reason: PER RADIOLOGY PROTOCOL Stop: 09/25/17 14:00 Succinylcholine Chloride (Quelicin) Confirm Administered Dose 200 mg .ROUTE .STK -MED ONE Stop: 09/21/17 07:48 Succinylcholine Chloride (Quelicin) Confirm Administered Dose 200 mg .ROUTE .STK -MED ONE Stop: 09/24/17 17:28 Last Admin: 09/24/17 19:34 Dose: Not Given Tramadol HCl (Ultram) 50 mg PO Q6H [facility] Last Admin: 09/24/17 05:13 Dose: Not Given Vancomycin HCl (Vancomycin) 0 gm IV .PHARMACY TO DOSE [facility] Stop: 09/25/17 07:30 - Exam Quality Assessment: Supplemental Oxygen (Ventilator), Urine Catheter, DVT Prophylaxis General: Sedated, Lethargic Lungs: Rales, Rhonchi. No: Wheezing Cardiovascular: Regular Rate, Regular Rhythm, No Murmurs GI/Abdominal Exam: Soft, No Organomegaly, Tender. No: Distended, Guarding, Rigid, Rebound Extremities: Non-Tender, Pedal Edema Skin: Warm, Dry Consult PN Assessment/Plan Procedures: Procedures ASSAY OF CREATININE (05/25/17) CONTRAST X-RAY EXAM OF COLON (05/15/17) CT ABD & PELV W/CONTRAST (05/25/17) DIAGNOSTIC COLONOSCOPY (05/15/17) ROUTINE VENIPUNCTURE (05/25/17) SCR MAMMO BI INCL CAD (04/03/17) Problem List Initiated/Reviewed/Updated: Yes My Orders Last 24 Hours: My Active Orders 09/25/17 10:30 Vancomycin 1.25 gm Sodium Chloride 0.9% [Normal Saline] 250 ml IV Q12H 09/25/17 14:53 HYDROmorphone [Dilaudid] 0.5 mg IVPUSH Q2H PRN 09/26/17 05:00 Chest 1V Frontal [CR] DAILY 09/26/17 09:00 Furosemide [Lasix] 20 mg IVPUSH Q12H 09/26/17 10:00 VANCOMYCIN TROUGH [CHEM] Routine 09/27/17 05:00 Chest 1V Frontal [CR] DAILY 09/28/17 05:00 Chest 1V Frontal [CR] DAILY 09/29/17 05:00 Chest 1V Frontal [CR] DAILY 09/30/17 05:00 Chest 1V Frontal [CR] DAILY Plan: ASSESSMENT AND RECOMMENDATIONS ACUTE HYPOXIC RESPIRATORY FAILURE-transient episode of respiratory compromise last night that resolved when she was placed back on full ventilatory support. Otherwise stable since then with good vital signs. She is been afebrile over the past 36 hours. Not felt to be quite ready yet for spontaneous breathing trial. Blood cultures are negative, sputum culture showing small amount of yeast which is likely a contaminant, not likely to be causing infection. -continue current level of ventilatory support -Supplemental oxygen as needed -Nebulized albuterol and duo nebs -Expanded IV antibiotic coverage with Zosyn, levofloxacin, and vancomycin pending culture results -if she remains stable plan for spontaneous breathing trial in a.m. STATUS POST COLON SURGERY -Postoperative care per Dr. Lam
[2017-09-26] MEDS: hydrOXYzine HCl 100 MG/2 ML SDV IM PRN (12:20)
[2017-09-26] MEDS: Levofloxacin/Dextrose 5%-Water 750 MG in Premix Bag 1 BAG IV SCH (13:59)
[2017-09-26] MEDS: Pantoprazole 40 MG Vial IV SCH (16:21)
[2017-09-26] MEDS: Potassium Chloride 20 MEQ, Lidocaine 1% 2 ML in Sodium Chloride 0.9% 100 ML IV SCH ×2 (20:08→22:09)
[2017-09-27] MEDS: hydrOXYzine HCl 100 MG/2 ML SDV IM PRN ×3 (00:05→19:28)
[2017-09-27] MEDS: Piperacillin/Tazobactam/Dext 3.375 GM in Premix Bag 1 BAG IV SCH ×4 (00:44→18:02)
[2017-09-27] MEDS: methylPREDNISolone Sodium Succinate 40 MG/1 ML SDV IVPUSH SCH ×4 (00:46→18:02)
[2017-09-27] MEDS: Magnesium Sulfate/Water 2 GM in Premix Bag 1 BAG IV SCH (03:51)
[2017-09-27] MEDS: Albuterol/Ipratropium 3.0-0.5 MG/3 ML Neb Soln NEB SCH ×4 (07:24→21:15)
[2017-09-27] MEDS: Fluconazole/Normal Saline 400 MG in Premix Bag 1 BAG IV SCH (08:13)
[2017-09-27] MEDS: Furosemide 20 MG/2 ML VIAL IVPUSH SCH ×2 (08:13→20:54)
--- NOTE | 2017-09-27 09:04 | PCM.CONSN ---
- General Info Date of Service: 09/27/17 Subjective Update: Ms. Mosley has been stable over the last 24 hours and is now down to an FiO2 of 40%. She is currently in the process of undergoing a spontaneous breathing trial to determine if she can be extubated today. Vital signs have otherwise been stable and she has remained afebrile. Because of sedation and intubation she is unable to provide significant information concerning symptoms or review of systems. - Patient Data Vitals - Most Recent: Last Vital Signs Temp 204.1 F H 09/27/17 07:51 Pulse 76 09/27/17 07:25 Resp 20 09/27/17 07:51 BP 155/68 H 09/27/17 07:51 Pulse Ox 93 L 09/27/17 07:51 Weight - Most Recent: 173 lb 4.8 oz I&O - Last 24 Hours: Intake & Output 09/26/17 09/27/17 09/27/17 22:59 06:59 14:59 Intake Total 153 1057 200 Output Total 295 1535 110 Balance -142 -478 90 Lab Results Last 24 Hours: Laboratory Results - last 24 hr 09/26/17 09/26/17 09/26/17 Range/Units 10:00 17:04 17:04 WBC (4.5-11.0) K/uL RBC (3.30-5.50) M/uL Hgb (12.0-15.0) g/dL Hct (36.0-48.0) % MCV (80-98) fL MCH (27-31) pg MCHC (32-36) % Plt Count (150-400) K/uL Puncture Site ABG pH (7.350-7.450) ABG pCO2 (35.0-42.0) mmHg ABG pO2 (75.0-100.0) mmHg ABG HCO3 (22.0-26.0) mmol/L ABG Total CO2 (21.0-25.0) mmol/L ABG O2 Saturation (95.0-98.0) % ABG O2 Content (15.0-23.0) %vol ABG Base Excess mm/L ABG Hemoglobin (12.0-16.0) g/dL ABG Oxyhemoglobin % ABG Carboxyhemoglobin (0.0-1.6) % ABG Methemoglobin % Nader Test O2 Delivery Device Oxygen Flow Rate L Sodium 143 (140-148) mmol/L Potassium 3.4 L (3.6-5.2) mmol/L Chloride 107 (100-108) mmol/L Carbon Dioxide 30 (21-32) mmol/L Anion Gap 9.4 (5.0-14.0) mmol/L BUN 9 (7-18) mg/dL Creatinine 0.7 (0.6-1.0) mg/dL Est Cr Clr Drug Dosing 62.82 mL/min Estimated GFR (MDRD) > 60 (>60) Glucose 133 H (74-106) mg/dL Lactic Acid 1.2 (0.4-2.0) mmol/L Calcium 7.5 L (8.5-10.1) mg/dL Phosphorus 3.4 (2.5-4.9) mg/dL Total Bilirubin (0.2-1.0) mg/dL AST (15-37) U/L ALT (12-78) U/L Alkaline Phosphatase (46-116) U/L NT-Pro-B Natriuret Pep (5-125) pg/mL Total Protein (6.4-8.2) g/dL Albumin (3.4-5.0) g/dL Globulin (2.3-3.5) g/dL Albumin/Globulin Ratio (1.2-2.2) Vancomycin Trough 9.8 L (10.0-20.0) ug/mL 09/26/17 09/27/17 09/27/17 Range/Units 17:04 04:00 04:00 WBC 9.2 (4.5-11.0) K/uL RBC 3.47 (3.30-5.50) M/uL Hgb 10.3 L (12.0-15.0) g/dL Hct 32.0 L (36.0-48.0) % MCV 92 (80-98) fL MCH 30 (27-31) pg MCHC 32 (32-36) % Plt Count 217 (150-400) K/uL Puncture Site A-line ABG pH 7.497 H (7.350-7.450) ABG pCO2 37.9 (35.0-42.0) mmHg ABG pO2 95.5 (75.0-100.0) mmHg ABG HCO3 29.1 H (22.0-26.0) mmol/L ABG Total CO2 24.9 (21.0-25.0) mmol/L ABG O2 Saturation 97.3 (95.0-98.0) % ABG O2 Content 19.7 (15.0-23.0) %vol ABG Base Excess 5.9 mm/L ABG Hemoglobin 14.5 (12.0-16.0) g/dL ABG Oxyhemoglobin 96.2 % ABG Carboxyhemoglobin 0.5 (0.0-1.6) % ABG Methemoglobin 0.6 % Nader Test Not performed O2 Delivery Device Ventilator Oxygen Flow Rate L Sodium 145 (140-148) mmol/L Potassium 3.8 (3.6-5.2) mmol/L Chloride 107 (100-108) mmol/L Carbon Dioxide 29 (21-32) mmol/L Anion Gap 8.6 (5.0-14.0) mmol/L BUN 15 D (7-18) mg/dL Creatinine 0.7 (0.6-1.0) mg/dL Est Cr Clr Drug Dosing 62.82 mL/min Estimated GFR (MDRD) > 60 (>60) Glucose 135 H (74-106) mg/dL Lactic Acid (0.4-2.0) mmol/L Calcium 7.7 L (8.5-10.1) mg/dL Phosphorus 4.0 (2.5-4.9) mg/dL Total Bilirubin 0.6 (0.2-1.0) mg/dL AST 45 H (15-37) U/L ALT 44 (12-78) U/L Alkaline Phosphatase 83 (46-116) U/L NT-Pro-B Natriuret Pep 1374 H (5-125) pg/mL Total Protein 5.9 L (6.4-8.2) g/dL Albumin 1.8 L (3.4-5.0) g/dL Globulin 4.1 H (2.3-3.5) g/dL Albumin/Globulin Ratio 0.4 L (1.2-2.2) Vancomycin Trough (10.0-20.0) ug/mL 09/27/17 09/27/17 Range/Units 04:00 04:00 WBC (4.5-11.0) K/uL RBC (3.30-5.50) M/uL Hgb (12.0-15.0) g/dL Hct (36.0-48.0) % MCV (80-98) fL MCH (27-31) pg MCHC (32-36) % Plt Count (150-400) K/uL Puncture Site A-line ABG pH 7.492 H (7.350-7.450) ABG pCO2 36.2 (35.0-42.0) mmHg ABG pO2 111.0 H (75.0-100.0) mmHg ABG HCO3 27.4 H (22.0-26.0) mmol/L ABG Total CO2 25.0 (21.0-25.0) mmol/L ABG O2 Saturation 98.4 H (95.0-98.0) % ABG O2 Content 13.9 L (15.0-23.0) %vol ABG Base Excess 4.4 mm/L ABG Hemoglobin 10.2 L (12.0-16.0) g/dL ABG Oxyhemoglobin 95.5 % ABG Carboxyhemoglobin 2.1 H (0.0-1.6) % ABG Methemoglobin 0.8 % Nader Test A-line O2 Delivery Device Ventilator Oxygen Flow Rate L Sodium (140-148) mmol/L Potassium (3.6-5.2) mmol/L Chloride (100-108) mmol/L Carbon Dioxide (21-32) mmol/L Anion Gap (5.0-14.0) mmol/L BUN (7-18) mg/dL Creatinine (0.6-1.0) mg/dL Est Cr Clr Drug Dosing mL/min Estimated GFR (MDRD) (>60) Glucose (74-106) mg/dL Lactic Acid 1.3 (0.4-2.0) mmol/L Calcium (8.5-10.1) mg/dL Phosphorus (2.5-4.9) mg/dL Total Bilirubin (0.2-1.0) mg/dL AST (15-37) U/L ALT (12-78) U/L Alkaline Phosphatase (46-116) U/L NT-Pro-B Natriuret Pep (5-125) pg/mL Total Protein (6.4-8.2) g/dL Albumin (3.4-5.0) g/dL Globulin (2.3-3.5) g/dL Albumin/Globulin Ratio (1.2-2.2) Vancomycin Trough (10.0-20.0) ug/mL Andrew Results Last 24 Hours: Microbiology 09/24/17 20:55 Gram Stain - Final Endotrachial Tube Respiratory Culture - Final Yeast Isolated 09/24/17 18:45 Aerobic Blood Culture - Preliminary Blood - Venous - Lab Draw NO GROWTH AFTER 2 DAYS Anaerobic Blood Culture - Preliminary NO GROWTH AFTER 2 DAYS 09/24/17 18:45 Aerobic Blood Culture - Preliminary Blood - Venous NO GROWTH AFTER 2 DAYS Anaerobic Blood Culture - Preliminary NO GROWTH AFTER 2 DAYS Med Orders - Current: Current Medications Acetaminophen (Tylenol Extra Strength) 1,000 mg PO Q6H [facility] Last Admin: 09/25/17 05:40 Dose: Not Given Albuterol (Proventil Neb Soln) 2.5 mg NEB Q4H PRN PRN Reason: Dyspnea Albuterol/Ipratropium (Duoneb 3.0-0.5 Mg/3 Ml) 3 ml NEB QIDRT [facility] Last Admin: 09/27/17 07:24 Dose: 3 ml Alprazolam (Xanax) 0.25 mg PO BEDTIME PRN PRN Reason: ANXIETY Bisacodyl (Dulcolax) 10 mg PO BID [facility] Last Admin: 09/24/17 23:51 Dose: Not Given Furosemide (Lasix) 20 mg IVPUSH Q12H [facility] Last Admin: 09/27/17 08:13 Dose: 20 mg Hydromorphone HCl (Dilaudid) 0.5 mg IVPUSH Q2H PRN PRN Reason: Pain Last Admin: 09/26/17 22:09 Dose: 0.5 mg Hydroxyzine HCl (Vistaril) 50 - 100 mg IM Q4H PRN PRN Reason: PAIN Last Admin: 09/27/17 00:05 Dose: 100 mg Piperacillin/Tazobactam/ (Dextrose 3.375 gm/ Premix) 50 mls @ 100 mls/hr IV Q6H [facility] Last Admin: 09/27/17 06:00 Dose: 100 mls/hr Levofloxacin/Dextrose 750 mg/ (Premix) 150 mls @ 100 mls/hr IV Q24H [facility] Last Admin: 09/26/17 13:59 Dose: 100 mls/hr Heparin Sodium (Porcine) 5,000 (units/ Sodium Chloride) 501 mls @ 0 mls/hr IV ASDIRECTED [facility] Last Admin: 09/24/17 17:33 Dose: 5 mls/hr Propofol (Diprivan 100 Ml) 100 mls @ 19.073 mls/hr IV TITRATE [facility]Y; Protocol Last Admin: 09/27/17 07:15 Dose: 70 mcg/kg/min, 33.377 mls/hr Fluconazole/Sodium Chloride (400 mg/ Premix) 200 mls @ 100 mls/hr IV Q24H [facility] Last Admin: 09/27/17 08:13 Dose: 100 mls/hr Vancomycin HCl 1.5 gm/ Sodium (Chloride) 250 mls @ 166.667 mls/hr IV Q12H [facility] Last Admin: 09/26/17 22:50 Dose: 166.667 mls/hr Ibuprofen (Motrin) 400 mg PO Q6H [facility] Last Admin: 09/25/17 05:40 Dose: Not Given Methylprednisolone Sodium Succinate (Solu-Medrol) 40 mg IVPUSH Q6H [facility] Last Admin: 09/27/17 05:47 Dose: 40 mg Metoprolol Succinate (Toprol Xl) 50 mg PO DAILY [facility] Last Admin: 09/24/17 09:32 Dose: 50 mg Ondansetron HCl (Zofran) 4 mg IV Q4H PRN PRN Reason: N/V Last Admin: 09/22/17 20:24 Dose: 4 mg Pantoprazole Sodium (Protonix Iv) 40 mg IV Q24H [facility] Last Admin: 09/26/17 16:21 Dose: 40 mg Scopolamine (Transderm-Scop) 1.5 mg TOP Q72H [facility] Stop: 09/27/17 08:59 Last Admin: 09/24/17 10:19 Dose: 1.5 mg Senna/Docusate Sodium (Senna Plus) 2 tab PO DAILY [facility] Last Admin: 09/24/17 09:29 Dose: 2 tab Venlafaxine HCl (Effexor Xr) 75 mg PO DAILY [facility] Last Admin: 09/24/17 09:29 Dose: 75 mg Discontinued Medications Acetaminophen (Tylenol Extra Strength) 1,000 mg PO ONETIME ONE Stop: 09/21/17 08:01 Last Admin: 09/21/17 08:14 Dose: 1,000 mg Albuterol/Ipratropium (Duoneb 3.0-0.5 Mg/3 Ml) 3 ml NEB ONETIME ONE Stop: 09/23/17 23:59 Last Admin: 09/24/17 00:10 Dose: Not Given Albuterol/Ipratropium (Duoneb 3.0-0.5 Mg/3 Ml) 3 ml NEB Q4H [facility] Last Admin: 09/24/17 11:04 Dose: 3 ml Alvimopan (Entereg) 12 mg PO ONETIME ONE Stop: 09/21/17 08:01 Last Admin: 09/21/17 08:14 Dose: 12 mg Alvimopan (Entereg) 12 mg PO BID [facility] Stop: 09/28/17 09:01 Last Admin: 09/23/17 21:11 Dose: 12 mg Bisacodyl (Dulcolax) 10 mg RECTAL ONETIME ONE Stop: 09/23/17 10:01 Last Admin: 09/23/17 10:11 Dose: 10 mg Bisacodyl (Dulcolax) 10 mg RECTAL ONETIME ONE Stop: 09/24/17 09:01 Last Admin: 09/24/17 10:45 Dose: Not Given Bupivacaine HCl (Marcaine 0.5%) Confirm Administered Dose 50 ml .ROUTE .STK-MED ONE Stop: 09/23/17 06:44 Last Admin: 09/23/17 07:37 Dose: 17.5 ml Ropivacaine 36 ml/Dexamethasone 8 mg/Epinephrine HCl 0.4 mg/ Sodium Chloride 41.6 ml 0 ml NERVRT ASDIRECTED [facility] Last Admin: 09/23/17 07:30 Dose: 80 syringe Dexamethasone (Dexamethasone) Confirm Administered Dose 4 mg .ROUTE .STK-MED ONE Stop: 09/21/17 07:48 Diphenhydramine HCl (Benadryl) 25 - 50 mg IVPUSH Q6H PRN PRN Reason: ITCHING Fentanyl (Sublimaze) Confirm Administered Dose 100 mcg .ROUTE .STK-MED ONE Stop: 09/21/17 07:51 Fentanyl (Sublimaze) Confirm Administered Dose 250 mcg .ROUTE .STK-MED ONE Stop: 09/21/17 12:23 Fentanyl Citrate (Fentanyl) Confirm Administered Dose 500 mcg .ROUTE .STK-MED ONE Stop: 09/21/17 07:52 Furosemide (Lasix) 20 mg IVPUSH STAT ONE Stop: 09/23/17 07:01 Last Admin: 09/23/17 07:05 Dose: 20 mg Furosemide (Lasix) 20 mg IVPUSH BID@1000,1700 [facility] Stop: 09/23/17 17:01 Last Admin: 09/23/17 17:08 Dose: 20 mg Furosemide (Lasix) 40 mg IVPUSH ONETIME ONE Stop: 09/23/17 21:45 Last Admin: 09/23/17 21:54 Dose: 40 mg Furosemide (Lasix) 20 mg IVPUSH ONETIME ONE Stop: 09/24/17 08:01 Last Admin: 09/24/17 09:23 Dose: 20 mg Furosemide (Lasix) 40 mg IVPUSH NOW ONE Stop: 09/24/17 18:46 Last Admin: 09/24/17 20:02 Dose: 40 mg Furosemide (Lasix) 20 mg IV ONETIME ONE Stop: 09/25/17 10:51 Last Admin: 09/25/17 12:03 Dose: 20 mg Glycopyrrolate (Robinul) Confirm Administered Dose 1 mg .ROUTE .STK-MED ONE Stop: 09/21/17 07:48 Heparin Sodium (Porcine) (Heparin Sodium) Confirm Administered Dose 5,000 units .ROUTE .STK-MED ONE Stop: 09/24/17 17:08 Last Admin: 09/24/17 19:34 Dose: Not Given Hydroxyzine HCl (Vistaril) 50 mg IM ONETIME ONE Stop: 09/21/17 14:17 Last Admin: 09/21/17 14:20 Dose: 50 mg Dextrose/Lactated Ringer's (Dextrose 5%-Lactated Ringers) 1,000 mls @ 100 mls/ hr IV ASDIRECTED [facility] Last Admin: 09/21/17 09:51 Dose: 100 mls/hr Cefoxitin Sodium 2 gm/ Sodium (Chloride) 50 mls @ 100 mls/hr IV ONETIME ONE Stop: 09/21/17 08:29 Last Admin: 09/21/17 20:11 Dose: Not Given Sodium Chloride (Normal Saline) Confirm Administered Dose 10 mls @ as directed .ROUTE .STK-MED ONE Stop: 09/21/17 07:51 Fentanyl 2,500 mcg/ Sodium (Chloride) 250 mls @ 0 mls/hr EPIDUR TITRATE [facility]; Protocol Last Admin: 09/23/17 13:05 Dose: 10 mls/hr, 10 mls/hr Dextrose/Lactated Ringer's (Dextrose 5%-Lactated Ringers) 1,000 mls @ 150 mls/ hr IV ASDIRECTED [facility] Last Admin: 09/23/17 03:10 Dose: 150 mls/hr Cefoxitin Sodium 2 gm/ Sodium (Chloride) 50 mls @ 100 mls/hr IV Q6H [facility] Stop: 09/22/17 17:29 Last Admin: 09/22/17 17:34 Dose: 100 mls/hr Lactated Ringer's (Ringers, Lactated) 500 mls @ 5 mls/hr IV ASDIRECTED [facility] Last Admin: 09/22/17 00:30 Dose: 5 mls/hr Lactated Ringer's (Ringers, Lactated) 500 mls @ 500 mls/hr IV ASDIRECTED [facility] Dextrose/Lactated Ringer's (Dextrose 5%-Lactated Ringers) 1,000 mls @ 80 mls/ hr IV ASDIRECTED [facility] Last Admin: 09/26/17 05:58 Dose: 80 mls/hr Magnesium Sulfate 2 gm/ Premix 50 mls @ 25 mls/hr IV Q6H [facility] Stop: 09/27/17 05:59 Last Admin: 09/27/17 03:51 Dose: 25 mls/hr Potassium Chloride 20 meq/ (Premix) 100 mls @ 50 mls/hr IV ONETIME ONE Stop: 09/24/17 09:59 Last Admin: 09/24/17 09:26 Dose: 50 mls/hr Sodium Chloride (Normal Saline) 90 mls @ 3 mls/sec IV ONETIME ONE Stop: 09/24/17 13:52 Last Admin: 09/24/17 15:34 Dose: Not Given Propofol (Diprivan 100 Ml) Confirm Administered Dose 100 mls @ as directed .ROUTE .STK-MED ONE Stop: 09/24/17 17:03 Last Admin: 09/24/17 19:03 Dose: Not Given Potassium Chloride 40 meq/ (Premix) 100 mls @ 25 mls/hr IV ONETIME ONE Stop: 09/24/17 22:07 Last Admin: 09/25/17 07:21 Dose: Not Given Linezolid 600 mg/ Premix 300 mls @ 300 mls/hr IV Q12H [facility] Last Admin: 09/25/17 08:05 Dose: Not Given Potassium Chloride 20 meq/ (Premix) 100 mls @ 50 mls/hr IV Q2H [facility] Stop: 09/24/17 23:59 Last Admin: 09/24/17 23:03 Dose: 50 mls/hr Vancomycin HCl 2,000 mg/ (Dextrose/Water) 500 mls @ 250 mls/hr IV Q24H [facility] Last Admin: 09/24/17 21:06 Dose: 250 mls/hr Vancomycin HCl 1.25 gm/ Sodium (Chloride) 250 mls @ 166.667 mls/hr IV Q24H [facility] Potassium Chloride 20 meq/ (Premix) 100 mls @ 50 mls/hr IV Q2H [facility] Stop: 09/25/17 02:59 Last Admin: 09/25/17 07:21 Dose: Not Given Potassium Chloride 20 meq/ (Premix) 100 mls @ 50 mls/hr IV Q2H [facility] Stop: 09/25/17 05:29 Last Admin: 09/25/17 03:38 Dose: 50 mls/hr Potassium Chloride 20 meq/ (Premix) 100 mls @ 50 mls/hr IV Q2H [facility] Stop: 09/25/17 09:59 Last Admin: 09/25/17 05:46 Dose: 50 mls/hr Sodium Chloride (Normal Saline) 1,000 mls @ 500 mls/hr IV ASDIRECTED [facility] Last Admin: 09/24/17 01:30 Dose: 500 mls/hr Potassium Phosphate 20 mmole/ (Sodium Chloride) 256.6667 mls @ 85 mls/hr IV Q3H [facility] Stop: 09/25/17 16:29 Last Admin: 09/25/17 14:31 Dose: 85 mls/hr Vancomycin HCl 1.25 gm/ Sodium (Chloride) 250 mls @ 166.667 mls/hr IV Q12H [facility] Stop: 09/26/17 14:00 Last Admin: 09/26/17 10:24 Dose: 166.667 mls/hr Sodium Chloride (Normal Saline) 70 mls @ 3 mls/sec IV ONETIME ONE Stop: 09/25/17 11:20 Last Admin: 09/25/17 12:16 Dose: 3 mls/sec Potassium Chloride 20 meq/ (Premix) 0 mls @ 50 mls/hr IV Q2H [facility] Stop: 09/26/17 07:00 Potassium Chloride 20 meq/ (Premix) 100 mls @ 50 mls/hr IV Q2H [facility] Stop: 09/26/17 08:59 Last Admin: 09/26/17 07:29 Dose: 50 mls/hr Lidocaine HCl (Xylocaine-Mpf 1%) Confirm Administered Dose 2 mls @ as directed .ROUTE .STK-MED ONE Stop: 09/26/17 04:49 Last Admin: 09/26/17 04:55 Dose: 2 mls/hr Potassium Chloride 20 meq/Lidocaine HCl 2 ml/ Sodium Chloride 112 mls @ 50 mls/ hr IV Q2H [facility] Stop: 09/26/17 23:59 Last Admin: 09/26/17 22:09 Dose: 50 mls/hr Potassium Chloride (Kcl 20 Meq In Water 100 Ml) Confirm Administered Dose 200 mls @ as directed .ROUTE .STK-MED ONE Stop: 09/26/17 20:02 Last Admin: 09/26/17 20:10 Dose: Not Given Iopamidol (Isovue-370 (76%)) 75 ml IV . DIRECTED [facility] Stop: 09/24/17 23:00 Last Admin: 09/25/17 11:24 Dose: 75 ml Iopamidol (Isovue-370 (76%)) 75 ml IV . DIRECTED [facility] Stop: 09/25/17 14:00 Lidocaine HCl (Xylocaine-Mpf 1%) 5 ml INJECT ONETIME ONE Stop: 09/24/17 20:08 Last Admin: 09/24/17 20:31 Dose: 5 ml Lidocaine HCl (Xylocaine-Mpf 1%) 5 ml INJECT ONETIME ONE Stop: 09/25/17 01:31 Last Admin: 09/25/17 01:41 Dose: 5 ml Lidocaine HCl (Xylocaine-Mpf 1%) 2 ml INJECT ONETIME ONE Stop: 09/25/17 05:23 Last Admin: 09/25/17 05:46 Dose: 2 ml Lidocaine HCl (Xylocaine-Mpf 1%) 5 ml INJECT ONETIME ONE Stop: 09/26/17 00:29 Last Admin: 09/26/17 00:49 Dose: 5 ml Lidocaine/Epinephrine (Xylocaine 1% With Epinephrine 1:100,000) Confirm Administered Dose 50 ml .ROUTE .STK-MED ONE Stop: 09/23/17 06:44 Last Admin: 09/23/17 07:37 Dose: 17.5 ml Lorazepam (Ativan) 0.5 mg IVPUSH Q2H PRN PRN Reason: Anxiety Last Admin: 09/25/17 07:47 Dose: 0.5 mg Meropenem (Merrem) Confirm Administered Dose 500 mg .ROUTE .STK-MED ONE Stop: 09/21/17 07:04 Last Admin: 09/21/17 13:24 Dose: 500 mg Meropenem (Merrem) Confirm Administered Dose 500 mg .ROUTE .STK-MED ONE Stop: 09/23/17 06:44 Last Admin: 09/23/17 07:38 Dose: 500 mg Naloxone HCl (Narcan) 0.1 mg IVPUSH Q5M PRN PRN Reason: RESP RATE LESS THAN 6/MINUTE Naloxone HCl (Narcan) 0.4 mg IV ASDIRECTED PRN PRN Reason: ITCHING Neostigmine Methylsulfate (Neostigmine) Confirm Administered Dose 5 mg .ROUTE .STK-MED ONE Stop: 09/21/17 07:48 Ask About Scop Patch 0 each .XX ONETIME ONE Stop: 09/24/17 08:01 Last Admin: 09/24/17 10:18 Dose: Not Given Ondansetron HCl (Zofran) Confirm Administered Dose 4 mg .ROUTE .STK-MED ONE Stop: 09/21/17 07:48 Potassium Chloride (Klor-Con M20) 20 meq PO TIDMEALS CADY Last Admin: 09/24/17 18:58 Dose: Not Given Propofol (Diprivan 20 Ml) Confirm Administered Dose 200 mg .ROUTE .STK-MED ONE Stop: 09/21/17 07:48 Propofol (Diprivan 20 Ml) Confirm Administered Dose 200 mg .ROUTE .STK-MED ONE Stop: 09/23/17 06:42 Propofol (Diprivan 20 Ml) Confirm Administered Dose 200 mg .ROUTE .STK-MED ONE Stop: 09/24/17 17:28 Last Admin: 09/24/17 19:34 Dose: Not Given Rocuronium [place] (Zemuron) Confirm Administered Dose 50 mg .ROUTE .STK-MED ONE Stop: 09/21/17 07:48 Scopolamine (Transderm-Scop) 1.5 mg TOP Q72H [facility] Stop: 09/24/17 02:00 Last Admin: 09/21/17 08:37 Dose: 1.5 mg Sodium Chloride (Saline Flush) 10 ml FLUSH ONETIME PRN PRN Reason: PER RADIOLOGY PROTOCOL Stop: 09/24/17 20:00 Last Admin: 09/25/17 11:23 Dose: 10 ml Sodium Chloride (Saline Flush) 10 ml FLUSH ONETIME PRN PRN Reason: PER RADIOLOGY PROTOCOL Stop: 09/25/17 14:00 Succinylcholine Chloride (Quelicin) Confirm Administered Dose 200 mg .ROUTE .STK -MED ONE Stop: 09/21/17 07:48 Succinylcholine Chloride (Quelicin) Confirm Administered Dose 200 mg .ROUTE .STK -MED ONE Stop: 09/24/17 17:28 Last Admin: 09/24/17 19:34 Dose: Not Given Tramadol HCl (Ultram) 50 mg PO Q6H [facility] Last Admin: 09/24/17 05:13 Dose: Not Given Vancomycin HCl (Vancomycin) 0 gm IV .PHARMACY TO DOSE [facility] Stop: 09/25/17 07:30 - Exam Quality Assessment: Supplemental Oxygen (Ventilator), Urine Catheter, DVT Prophylaxis General: Sedated, Lethargic Lungs: Clear to Auscultation, Normal Respiratory Effort Cardiovascular: Regular Rate, Regular Rhythm, No Murmurs GI/Abdominal Exam: Soft, No Organomegaly, Tender. No: Distended, Guarding, Rigid, Rebound Back Exam: Normal Inspection, Full Range of Motion Extremities: Non-Tender, Pedal Edema Skin: Warm, Dry Consult PN Assessment/Plan Procedures: Procedures ASSAY OF CREATININE (05/25/17) CONTRAST X-RAY EXAM OF COLON (05/15/17) CT ABD & PELV W/CONTRAST (05/25/17) DIAGNOSTIC COLONOSCOPY (05/15/17) ROUTINE VENIPUNCTURE (05/25/17) SCR MAMMO BI INCL CAD (04/03/17) Problem List Initiated/Reviewed/Updated: Yes My Orders Last 24 Hours: My Active Orders 09/26/17 09:00 Furosemide [Lasix] 20 mg IVPUSH Q12H 09/26/17 23:00 Vancomycin 1.5 gm Sodium Chloride 0.9% [Normal Saline] 250 ml IV Q12H 09/27/17 05:00 Chest 1V Frontal [CR] DAILY 09/27/17 17:00 BASIC METABOLIC PANEL,BMP [CHEM] Stat BLOOD GAS ARTERIAL [BG] Stat 09/28/17 05:00 Chest 1V Frontal [CR] DAILY BLOOD GAS ARTERIAL [BG] Timed CBC WITH AUTO DIFF [HEME] Timed COMPREHENSIVE METABOLIC PN,CMP [CHEM] Timed MAGNESIUM [CHEM] Timed PHOSPHORUS [CHEM] Timed 09/29/17 05:00 Chest 1V Frontal [CR] DAILY 09/30/17 05:00 Chest 1V Frontal [CR] DAILY Plan: ASSESSMENT AND RECOMMENDATIONS ACUTE HYPOXIC RESPIRATORY FAILURE-evidence of bilateral pneumonia on chest x- ray and CT scan, also probable component of fluid overload. Stable on current ventilator settings over the past 24 hours. Continues to require relatively high level of sedation because of her underlying severe anxiety. -Spontaneous breathing trial this morning -Continue current ventilator settings -Nebulized albuterol and duo nebs -Expanded IV antibiotic coverage with Zosyn, levofloxacin, and vancomycin pending culture results -Blood and sputum cultures pending -Stress ulcer prophylaxis with Protonix -DVT prophylaxis; SCUDs STATUS POST COLON SURGERY -Postoperative care per Dr. Lam
[2017-09-27] MEDS: HYDROmorphone 0.5 MG/0.5 ML Syringe IVPUSH PRN (09:36)
[2017-09-27] MEDS: Levofloxacin/Dextrose 5%-Water 750 MG in Premix Bag 1 BAG IV SCH (14:49)
[2017-09-27] MEDS: Pantoprazole 40 MG Vial IV SCH (17:56)
[2017-09-27] MEDS: Potassium Chloride 20 MEQ, Lidocaine 1% 2 ML in Sodium Chloride 0.9% 100 ML IV SCH ×2 (20:55→23:01)
[2017-09-27] MEDS ORDERED: Potassium Chloride 20 MEQ in Premix Bag 2 BAG IV SCH (21:00)
[2017-09-28] MEDS: Piperacillin/Tazobactam/Dext 3.375 GM in Premix Bag 1 BAG IV SCH ×4 (01:18→18:33)
[2017-09-28] MEDS: methylPREDNISolone Sodium Succinate 40 MG/1 ML SDV IVPUSH SCH ×4 (01:18→17:44)
[2017-09-28] MEDS: Albuterol/Ipratropium 3.0-0.5 MG/3 ML Neb Soln NEB SCH ×4 (07:14→21:08)
[2017-09-28] MEDS: Fluconazole/Normal Saline 400 MG in Premix Bag 1 BAG IV SCH (08:01)
--- NOTE | 2017-09-28 09:06 | PCM.CONSN ---
- General Info Date of Service: 09/28/17 Functional Status: Reports: Pain Controlled - Review of Systems General: Denies: Fever Systems Review Comment:: No acute events overnight. No fevers. Minimal FiO2 requirement. Weaning trial yesterday limited by anxiety. Peak inspiratory pressures have been 16-20. Weaning trial this am limited by anxiety and then tachycardia and hypertension. Pain seems to be well controlled. CXR clearing. Labs stable. MILO drainage is brownish. Patient is intubated and somewhat sedated and not able to participate with questions. - Patient Data Vitals - Most Recent: Last Vital Signs Temp 36.8 C 09/28/17 07:00 Pulse 93 09/28/17 08:56 Resp 24 H 09/28/17 08:56 BP 154/61 H 09/28/17 08:56 Pulse Ox 100 09/28/17 08:56 Weight - Most Recent: 78.608 kg I&O - Last 24 Hours: Intake & Output 09/27/17 09/28/17 09/28/17 22:59 06:59 14:59 Intake Total 485 935 Output Total 640 1475 Balance -155 -540 Lab Results Last 24 Hours: Laboratory Results - last 24 hr 09/27/17 09/27/17 09/28/17 Range/Units 17:12 17:12 05:35 WBC 9.8 (4.5-11.0) K/uL RBC 3.71 (3.30-5.50) M/uL Hgb 10.8 L (12.0-15.0) g/dL Hct 33.9 L (36.0-48.0) % MCV 91 (80-98) fL MCH 29 (27-31) pg MCHC 32 (32-36) % Plt Count 250 (150-400) K/uL Add Manual Diff Yes Neutrophils % (Manual) 79 H (36-66) % Band Neutrophils % 4 L (5-11) % Lymphocytes % (Manual) 9 L (24-44) % Monocytes % (Manual) 8 H (2-6) % Puncture Site A-line ABG pH 7.549 H (7.350-7.450) ABG pCO2 33.6 L (35.0-42.0) mmHg ABG pO2 71.0 L (75.0-100.0) mmHg ABG HCO3 29.2 H (22.0-26.0) mmol/L ABG Total CO2 26.3 H (21.0-25.0) mmol/L ABG O2 Saturation 94.9 L (95.0-98.0) % ABG O2 Content 13.9 L (15.0-23.0) %vol ABG Base Excess 6.8 mm/L ABG Hemoglobin 10.6 L (12.0-16.0) g/dL ABG Oxyhemoglobin 93.2 % ABG Carboxyhemoglobin 0.9 (0.0-1.6) % ABG Methemoglobin 0.9 % Nader Test Passed O2 Delivery Device Ventilator Oxygen Flow Rate L Sodium 145 (140-148) mmol/L Potassium 3.4 L (3.6-5.2) mmol/L Chloride 106 (100-108) mmol/L Carbon Dioxide 30 (21-32) mmol/L Anion Gap 12.4 (5.0-14.0) mmol/L BUN 17 (7-18) mg/dL Creatinine 0.7 (0.6-1.0) mg/dL Est Cr Clr Drug Dosing 62.82 mL/min Estimated GFR (MDRD) > 60 (>60) Glucose 129 H (74-106) mg/dL Calcium 8.1 L (8.5-10.1) mg/dL Phosphorus (2.5-4.9) mg/dL Magnesium (1.8-2.4) mg/dL Total Bilirubin (0.2-1.0) mg/dL AST (15-37) U/L ALT (12-78) U/L Alkaline Phosphatase (46-116) U/L Total Protein (6.4-8.2) g/dL Albumin (3.4-5.0) g/dL Globulin (2.3-3.5) g/dL Albumin/Globulin Ratio (1.2-2.2) 09/28/17 09/28/17 Range/Units 05:35 05:45 WBC (4.5-11.0) K/uL RBC (3.30-5.50) M/uL Hgb (12.0-15.0) g/dL Hct (36.0-48.0) % MCV (80-98) fL MCH (27-31) pg MCHC (32-36) % Plt Count (150-400) K/uL Add Manual Diff Neutrophils % (Manual) (36-66) % Band Neutrophils % (5-11) % Lymphocytes % (Manual) (24-44) % Monocytes % (Manual) (2-6) % Puncture Site Line ABG pH 7.532 H (7.350-7.450) ABG pCO2 34.3 L (35.0-42.0) mmHg ABG pO2 90.8 (75.0-100.0) mmHg ABG HCO3 28.7 H (22.0-26.0) mmol/L ABG Total CO2 25.6 H (21.0-25.0) mmol/L ABG O2 Saturation 97.4 (95.0-98.0) % ABG O2 Content 15.0 (15.0-23.0) %vol ABG Base Excess 6.1 mm/L ABG Hemoglobin 11.1 L (12.0-16.0) g/dL ABG Oxyhemoglobin 95.3 % ABG Carboxyhemoglobin 1.4 (0.0-1.6) % ABG Methemoglobin 0.8 % Nader Test O2 Delivery Device Ventilator Oxygen Flow Rate L Sodium 144 (140-148) mmol/L Potassium 3.8 (3.6-5.2) mmol/L Chloride 106 (100-108) mmol/L Carbon Dioxide 28 (21-32) mmol/L Anion Gap 9.8 (5.0-14.0) mmol/L BUN 22 H (7-18) mg/dL Creatinine 0.7 (0.6-1.0) mg/dL Est Cr Clr Drug Dosing 62.82 mL/min Estimated GFR (MDRD) > 60 (>60) Glucose 135 H (74-106) mg/dL Calcium 8.0 L (8.5-10.1) mg/dL Phosphorus 4.3 (2.5-4.9) mg/dL Magnesium 2.3 D (1.8-2.4) mg/dL Total Bilirubin 0.6 (0.2-1.0) mg/dL AST 48 H (15-37) U/L ALT 51 (12-78) U/L Alkaline Phosphatase 94 (46-116) U/L Total Protein 6.0 L (6.4-8.2) g/dL Albumin 1.9 L (3.4-5.0) g/dL Globulin 4.1 H (2.3-3.5) g/dL Albumin/Globulin Ratio 0.5 L (1.2-2.2) Andrew Results Last 24 Hours: Microbiology 09/24/17 18:45 Aerobic Blood Culture - Preliminary Blood - Venous - Lab Draw NO GROWTH AFTER 3 DAYS Anaerobic Blood Culture - Preliminary NO GROWTH AFTER 3 DAYS 09/24/17 18:45 Aerobic Blood Culture - Preliminary Blood - Venous NO GROWTH AFTER 3 DAYS Anaerobic Blood Culture - Preliminary NO GROWTH AFTER 3 DAYS 09/24/17 20:55 Gram Stain - Final Endotrachial Tube Respiratory Culture - Final Yeast Isolated Med Orders - Current: Current Medications Acetaminophen (Tylenol Extra Strength) 1,000 mg PO Q6H [facility] Last Admin: 09/25/17 05:40 Dose: Not Given Albuterol (Proventil Neb Soln) 2.5 mg NEB Q4H PRN PRN Reason: Dyspnea Albuterol/Ipratropium (Duoneb 3.0-0.5 Mg/3 Ml) 3 ml NEB QIDRT [facility] Last Admin: 09/28/17 07:14 Dose: 3 ml Alprazolam (Xanax) 0.25 mg PO BEDTIME PRN PRN Reason: ANXIETY Bisacodyl (Dulcolax) 10 mg PO BID [facility] Last Admin: 09/24/17 23:51 Dose: Not Given Furosemide (Lasix) 20 mg IVPUSH Q12H [facility] Last Admin: 09/27/17 20:54 Dose: 20 mg Hydromorphone HCl (Dilaudid) 0.5 mg IVPUSH Q2H PRN PRN Reason: Pain Last Admin: 09/27/17 09:36 Dose: 0.5 mg Hydroxyzine HCl (Vistaril) 50 - 100 mg IM Q4H PRN PRN Reason: PAIN Last Admin: 09/27/17 19:28 Dose: 100 mg Piperacillin/Tazobactam/ (Dextrose 3.375 gm/ Premix) 50 mls @ 100 mls/hr IV Q6H [facility] Last Admin: 09/28/17 06:15 Dose: 100 mls/hr Levofloxacin/Dextrose 750 mg/ (Premix) 150 mls @ 100 mls/hr IV Q24H [facility] Last Admin: 09/27/17 14:49 Dose: 100 mls/hr Heparin Sodium (Porcine) 5,000 (units/ Sodium Chloride) 501 mls @ 0 mls/hr IV ASDIRECTED [facility] Last Admin: 09/24/17 17:33 Dose: 5 mls/hr Propofol (Diprivan 100 Ml) 100 mls @ 19.073 mls/hr IV TITRATE [facility]; Protocol Last Admin: 09/28/17 08:34 Dose: 70 mcg/kg/min, 33.377 mls/hr Fluconazole/Sodium Chloride (400 mg/ Premix) 200 mls @ 100 mls/hr IV Q24H [facility] Last Admin: 09/28/17 08:01 Dose: 100 mls/hr Vancomycin HCl 1.5 gm/ Sodium (Chloride) 250 mls @ 166.667 mls/hr IV Q12H [facility] Last Admin: 09/27/17 23:03 Dose: 166.667 mls/hr Ibuprofen (Motrin) 400 mg PO Q6H [facility] Last Admin: 09/25/17 05:40 Dose: Not Given Lorazepam (Ativan) 0.5 mg IVPUSH Q1H PRN PRN Reason: Anxiety Methylprednisolone Sodium Succinate (Solu-Medrol) 40 mg IVPUSH Q6H [facility] Last Admin: 09/28/17 06:14 Dose: 40 mg Metoprolol Succinate (Toprol Xl) 50 mg PO DAILY [facility] Last Admin: 09/24/17 09:32 Dose: 50 mg Ondansetron HCl (Zofran) 4 mg IV Q4H PRN PRN Reason: N/V Last Admin: 09/22/17 20:24 Dose: 4 mg Pantoprazole Sodium (Protonix Iv) 40 mg IV Q24H [facility] Last Admin: 09/27/17 17:56 Dose: 40 mg Senna/Docusate Sodium (Senna Plus) 2 tab PO DAILY [facility] Last Admin: 09/24/17 09:29 Dose: 2 tab Venlafaxine HCl (Effexor Xr) 75 mg PO DAILY [facility] Last Admin: 09/24/17 09:29 Dose: 75 mg Discontinued Medications Acetaminophen (Tylenol Extra Strength) 1,000 mg PO ONETIME ONE Stop: 09/21/17 08:01 Last Admin: 09/21/17 08:14 Dose: 1,000 mg Albuterol/Ipratropium (Duoneb 3.0-0.5 Mg/3 Ml) 3 ml NEB ONETIME ONE Stop: 09/23/17 23:59 Last Admin: 09/24/17 00:10 Dose: Not Given Albuterol/Ipratropium (Duoneb 3.0-0.5 Mg/3 Ml) 3 ml NEB Q4H [facility] Last Admin: 09/24/17 11:04 Dose: 3 ml Alvimopan (Entereg) 12 mg PO ONETIME ONE Stop: 09/21/17 08:01 Last Admin: 09/21/17 08:14 Dose: 12 mg Alvimopan (Entereg) 12 mg PO BID [facility] Stop: 09/28/17 09:01 Last Admin: 09/23/17 21:11 Dose: 12 mg Bisacodyl (Dulcolax) 10 mg RECTAL ONETIME ONE Stop: 09/23/17 10:01 Last Admin: 09/23/17 10:11 Dose: 10 mg Bisacodyl (Dulcolax) 10 mg RECTAL ONETIME ONE Stop: 09/24/17 09:01 Last Admin: 09/24/17 10:45 Dose: Not Given Bupivacaine HCl (Marcaine 0.5%) Confirm Administered Dose 50 ml .ROUTE .STK-MED ONE Stop: 09/23/17 06:44 Last Admin: 09/23/17 07:37 Dose: 17.5 ml Ropivacaine 36 ml/Dexamethasone 8 mg/Epinephrine HCl 0.4 mg/ Sodium Chloride 41.6 ml 0 ml NERVRT ASDIRECTED [facility] Last Admin: 09/23/17 07:30 Dose: 80 syringe Dexamethasone (Dexamethasone) Confirm Administered Dose 4 mg .ROUTE .STK-MED ONE Stop: 09/21/17 07:48 Diphenhydramine HCl (Benadryl) 25 - 50 mg IVPUSH Q6H PRN PRN Reason: ITCHING Fentanyl (Sublimaze) Confirm Administered Dose 100 mcg .ROUTE .STK-MED ONE Stop: 09/21/17 07:51 Fentanyl (Sublimaze) Confirm Administered Dose 250 mcg .ROUTE .STK-MED ONE Stop: 09/21/17 12:23 Fentanyl Citrate (Fentanyl) Confirm Administered Dose 500 mcg .ROUTE .STK-MED ONE Stop: 09/21/17 07:52 Furosemide (Lasix) 20 mg IVPUSH STAT ONE Stop: 09/23/17 07:01 Last Admin: 09/23/17 07:05 Dose: 20 mg Furosemide (Lasix) 20 mg IVPUSH BID@1000,1700 [facility] Stop: 09/23/17 17:01 Last Admin: 09/23/17 17:08 Dose: 20 mg Furosemide (Lasix) 40 mg IVPUSH ONETIME ONE Stop: 09/23/17 21:45 Last Admin: 09/23/17 21:54 Dose: 40 mg Furosemide (Lasix) 20 mg IVPUSH ONETIME ONE Stop: 09/24/17 08:01 Last Admin: 09/24/17 09:23 Dose: 20 mg Furosemide (Lasix) 40 mg IVPUSH NOW ONE Stop: 09/24/17 18:46 Last Admin: 09/24/17 20:02 Dose: 40 mg Furosemide (Lasix) 20 mg IV ONETIME ONE Stop: 09/25/17 10:51 Last Admin: 09/25/17 12:03 Dose: 20 mg Glycopyrrolate (Robinul) Confirm Administered Dose 1 mg .ROUTE .STK-MED ONE Stop: 09/21/17 07:48 Heparin Sodium (Porcine) (Heparin Sodium) Confirm Administered Dose 5,000 units .ROUTE .STK-MED ONE Stop: 09/24/17 17:08 Last Admin: 09/24/17 19:34 Dose: Not Given Hydroxyzine HCl (Vistaril) 50 mg IM ONETIME ONE Stop: 09/21/17 14:17 Last Admin: 09/21/17 14:20 Dose: 50 mg Dextrose/Lactated Ringer's (Dextrose 5%-Lactated Ringers) 1,000 mls @ 100 mls/ hr IV ASDIRECTED [facility] Last Admin: 09/21/17 09:51 Dose: 100 mls/hr Cefoxitin Sodium 2 gm/ Sodium (Chloride) 50 mls @ 100 mls/hr IV ONETIME ONE Stop: 09/21/17 08:29 Last Admin: 09/21/17 20:11 Dose: Not Given Sodium Chloride (Normal Saline) Confirm Administered Dose 10 mls @ as directed .ROUTE .STK-MED ONE Stop: 09/21/17 07:51 Fentanyl 2,500 mcg/ Sodium (Chloride) 250 mls @ 0 mls/hr EPIDUR TITRATE [facility]; Protocol Last Admin: 09/23/17 13:05 Dose: 10 mls/hr, 10 mls/hr Dextrose/Lactated Ringer's (Dextrose 5%-Lactated Ringers) 1,000 mls @ 150 mls/ hr IV ASDIRECTED [facility] Last Admin: 09/23/17 03:10 Dose: 150 mls/hr Cefoxitin Sodium 2 gm/ Sodium (Chloride) 50 mls @ 100 mls/hr IV Q6H [facility] Stop: 09/22/17 17:29 Last Admin: 09/22/17 17:34 Dose: 100 mls/hr Lactated Ringer's (Ringers, Lactated) 500 mls @ 5 mls/hr IV ASDIRECTED [facility] Last Admin: 09/22/17 00:30 Dose: 5 mls/hr Lactated Ringer's (Ringers, Lactated) 500 mls @ 500 mls/hr IV ASDIRECTED [facility] Dextrose/Lactated Ringer's (Dextrose 5%-Lactated Ringers) 1,000 mls @ 80 mls/ hr IV ASDIRECTED [facility] Last Admin: 09/26/17 05:58 Dose: 80 mls/hr Magnesium Sulfate 2 gm/ Premix 50 mls @ 25 mls/hr IV Q6H [facility] Stop: 09/27/17 05:59 Last Admin: 09/27/17 03:51 Dose: 25 mls/hr Potassium Chloride 20 meq/ (Premix) 100 mls @ 50 mls/hr IV ONETIME ONE Stop: 09/24/17 09:59 Last Admin: 09/24/17 09:26 Dose: 50 mls/hr Sodium Chloride (Normal Saline) 90 mls @ 3 mls/sec IV ONETIME ONE Stop: 09/24/17 13:52 Last Admin: 09/24/17 15:34 Dose: Not Given Propofol (Diprivan 100 Ml) Confirm Administered Dose 100 mls @ as directed .ROUTE .STK-MED ONE Stop: 09/24/17 17:03 Last Admin: 09/24/17 19:03 Dose: Not Given Potassium Chloride 40 meq/ (Premix) 100 mls @ 25 mls/hr IV ONETIME ONE Stop: 09/24/17 22:07 Last Admin: 09/25/17 07:21 Dose: Not Given Linezolid 600 mg/ Premix 300 mls @ 300 mls/hr IV Q12H [facility] Last Admin: 09/25/17 08:05 Dose: Not Given Potassium Chloride 20 meq/ (Premix) 100 mls @ 50 mls/hr IV Q2H [facility] Stop: 09/24/17 23:59 Last Admin: 09/24/17 23:03 Dose: 50 mls/hr Vancomycin HCl 2,000 mg/ (Dextrose/Water) 500 mls @ 250 mls/hr IV Q24H [facility] Last Admin: 09/24/17 21:06 Dose: 250 mls/hr Vancomycin HCl 1.25 gm/ Sodium (Chloride) 250 mls @ 166.667 mls/hr IV Q24H [facility] Potassium Chloride 20 meq/ (Premix) 100 mls @ 50 mls/hr IV Q2H [facility] Stop: 09/25/17 02:59 Last Admin: 09/25/17 07:21 Dose: Not Given Potassium Chloride 20 meq/ (Premix) 100 mls @ 50 mls/hr IV Q2H [facility] Stop: 09/25/17 05:29 Last Admin: 09/25/17 03:38 Dose: 50 mls/hr Potassium Chloride 20 meq/ (Premix) 100 mls @ 50 mls/hr IV Q2H [facility] Stop: 09/25/17 09:59 Last Admin: 09/25/17 05:46 Dose: 50 mls/hr Sodium Chloride (Normal Saline) 1,000 mls @ 500 mls/hr IV ASDIRECTED [facility] Last Admin: 09/24/17 01:30 Dose: 500 mls/hr Potassium Phosphate 20 mmole/ (Sodium Chloride) 256.6667 mls @ 85 mls/hr IV Q3H [facility] Stop: 09/25/17 16:29 Last Admin: 09/25/17 14:31 Dose: 85 mls/hr Vancomycin HCl 1.25 gm/ Sodium (Chloride) 250 mls @ 166.667 mls/hr IV Q12H [facility] Stop: 09/26/17 14:00 Last Admin: 09/26/17 10:24 Dose: 166.667 mls/hr Sodium Chloride (Normal Saline) 70 mls @ 3 mls/sec IV ONETIME ONE Stop: 09/25/17 11:20 Last Admin: 09/25/17 12:16 Dose: 3 mls/sec Potassium Chloride 20 meq/ (Premix) 0 mls @ 50 mls/hr IV Q2H [facility] Stop: 09/26/17 07:00 Potassium Chloride 20 meq/ (Premix) 100 mls @ 50 mls/hr IV Q2H [facility] Stop: 09/26/17 08:59 Last Admin: 09/26/17 07:29 Dose: 50 mls/hr Lidocaine HCl (Xylocaine-Mpf 1%) Confirm Administered Dose 2 mls @ as directed .ROUTE .STK-MED ONE Stop: 09/26/17 04:49 Last Admin: 09/26/17 04:55 Dose: 2 mls/hr Potassium Chloride 20 meq/Lidocaine HCl 2 ml/ Sodium Chloride 112 mls @ 50 mls/ hr IV Q2H [facility] Stop: 09/26/17 23:59 Last Admin: 09/26/17 22:09 Dose: 50 mls/hr Potassium Chloride (Kcl 20 Meq In Water 100 Ml) Confirm Administered Dose 200 mls @ as directed .ROUTE .STK-MED ONE Stop: 09/26/17 20:02 Last Admin: 09/26/17 20:10 Dose: Not Given Potassium Chloride 20 meq/Lidocaine HCl 2 ml/ Sodium Chloride 112 mls @ 50 mls/ hr IV Q2H [facility] Stop: 09/28/17 00:59 Last Admin: 09/27/17 23:01 Dose: 50 mls/hr Potassium Chloride (Kcl 20 Meq In Water 100 Ml) Confirm Administered Dose 200 mls @ as directed .ROUTE .STK-MED ONE Stop: 09/27/17 20:51 Last Admin: 09/27/17 20:56 Dose: Not Given Iopamidol (Isovue-370 (76%)) 75 ml IV . DIRECTED [facility] Stop: 09/24/17 23:00 Last Admin: 09/25/17 11:24 Dose: 75 ml Iopamidol (Isovue-370 (76%)) 75 ml IV . DIRECTED [facility] Stop: 09/25/17 14:00 Lidocaine HCl (Xylocaine-Mpf 1%) 5 ml INJECT ONETIME ONE Stop: 09/24/17 20:08 Last Admin: 09/24/17 20:31 Dose: 5 ml Lidocaine HCl (Xylocaine-Mpf 1%) 5 ml INJECT ONETIME ONE Stop: 09/25/17 01:31 Last Admin: 09/25/17 01:41 Dose: 5 ml Lidocaine HCl (Xylocaine-Mpf 1%) 2 ml INJECT ONETIME ONE Stop: 09/25/17 05:23 Last Admin: 09/25/17 05:46 Dose: 2 ml Lidocaine HCl (Xylocaine-Mpf 1%) 5 ml INJECT ONETIME ONE Stop: 09/26/17 00:29 Last Admin: 09/26/17 00:49 Dose: 5 ml Lidocaine/Epinephrine (Xylocaine 1% With Epinephrine 1:100,000) Confirm Administered Dose 50 ml .ROUTE .STK-MED ONE Stop: 09/23/17 06:44 Last Admin: 09/23/17 07:37 Dose: 17.5 ml Lorazepam (Ativan) 0.5 mg IVPUSH Q2H PRN PRN Reason: Anxiety Last Admin: 09/25/17 07:47 Dose: 0.5 mg Meropenem (Merrem) Confirm Administered Dose 500 mg .ROUTE .STK-MED ONE Stop: 09/21/17 07:04 Last Admin: 09/21/17 13:24 Dose: 500 mg Meropenem (Merrem) Confirm Administered Dose 500 mg .ROUTE .STK-MED ONE Stop: 09/23/17 06:44 Last Admin: 09/23/17 07:38 Dose: 500 mg Naloxone HCl (Narcan) 0.1 mg IVPUSH Q5M PRN PRN Reason: RESP RATE LESS THAN 6/MINUTE Naloxone HCl (Narcan) 0.4 mg IV ASDIRECTED PRN PRN Reason: ITCHING Neostigmine Methylsulfate (Neostigmine) Confirm Administered Dose 5 mg .ROUTE .STK-MED ONE Stop: 09/21/17 07:48 Ask About Scop Patch 0 each .XX ONETIME ONE Stop: 09/24/17 08:01 Last Admin: 09/24/17 10:18 Dose: Not Given Ondansetron HCl (Zofran) Confirm Administered Dose 4 mg .ROUTE .STK-MED ONE Stop: 09/21/17 07:48 Potassium Chloride (Klor-Con M20) 20 meq PO TIDMEALS [facility] Last Admin: 09/24/17 18:58 Dose: Not Given Propofol (Diprivan 20 Ml) Confirm Administered Dose 200 mg .ROUTE .STK-MED ONE Stop: 09/21/17 07:48 Propofol (Diprivan 20 Ml) Confirm Administered Dose 200 mg .ROUTE .STK-MED ONE Stop: 09/23/17 06:42 Propofol (Diprivan 20 Ml) Confirm Administered Dose 200 mg .ROUTE .STK-MED ONE Stop: 09/24/17 17:28 Last Admin: 09/24/17 19:34 Dose: Not Given Rocuronium [place] (Zemuron) Confirm Administered Dose 50 mg .ROUTE .K-MED ONE Stop: 09/21/17 07:48 Scopolamine (Transderm-Scop) 1.5 mg TOP Q72H [facility] Stop: 09/24/17 02:00 Last Admin: 09/21/17 08:37 Dose: 1.5 mg Scopolamine (Transderm-Scop) 1.5 mg TOP Q72H [facility] Stop: 09/27/17 08:59 Last Admin: 09/24/17 10:19 Dose: 1.5 mg Sodium Chloride (Saline Flush) 10 ml FLUSH ONETIME PRN PRN Reason: PER RADIOLOGY PROTOCOL Stop: 09/24/17 20:00 Last Admin: 09/25/17 11:23 Dose: 10 ml Sodium Chloride (Saline Flush) 10 ml FLUSH ONETIME PRN PRN Reason: PER RADIOLOGY PROTOCOL Stop: 09/25/17 14:00 Succinylcholine Chloride (Quelicin) Confirm Administered Dose 200 mg .ROUTE .K -MED ONE Stop: 09/21/17 07:48 Succinylcholine Chloride (Quelicin) Confirm Administered Dose 200 mg .ROUTE .K -MED ONE Stop: 09/24/17 17:28 Last Admin: 09/24/17 19:34 Dose: Not Given Tramadol HCl (Ultram) 50 mg PO Q6H [facility] Last Admin: 09/24/17 05:13 Dose: Not Given Vancomycin HCl (Vancomycin) 0 gm IV .PHARMACY TO DOSE [facility] Stop: 09/25/17 07:30 - Exam Quality Assessment: Supplemental Oxygen General: No Acute Distress, Sedated. No: Alert HEENT: Pupils Equal Neck: Supple Lungs: Clear to Auscultation, Normal Respiratory Effort, Decreased Breath Sounds (mild right base) Cardiovascular: Regular Rate, Regular Rhythm GI/Abdominal Exam: Soft, No Distention, Tender. No: Normal Bowel Sounds ( hypoactive) Extremities: Pedal Edema (mild bilateral ankle edema). No: Increased Warmth Wound/Incisions: Dressing Dry and Intact, Other (MILO with brown drainage) Psy/Mental Status: No: Alert, Anxious Consult PN Assessment/Plan Procedures: Procedures ASSAY OF CREATININE (05/25/17) CONTRAST X-RAY EXAM OF COLON (05/15/17) CT ABD & PELV W/CONTRAST (05/25/17) DIAGNOSTIC COLONOSCOPY (05/15/17) ROUTINE VENIPUNCTURE (05/25/17) SCR MAMMO BI INCL CAD (04/03/17) Problem List Initiated/Reviewed/Updated: Yes My Orders Last 24 Hours: My Active Orders 09/28/17 09:02 LORazepam [Ativan] 0.5 mg IVPUSH Q1H PRN 09/29/17 05:00 BASIC METABOLIC PANEL,BMP [CHEM] Timed BLOOD GAS ARTERIAL [BG] Timed CBC W/O DIFF,HEMOGRAM [HEME] Timed (1) Plan: ASSESSMENT AND RECOMMENDATIONS ACUTE HYPOXIC RESPIRATORY FAILURE - evidence of bilateral pneumonia on chest x- ray and CT scan, also probable component of fluid overload. Respiratory status has been stable and she requires minimal vent support. Anxiety is limiting extubation. -Spontaneous breathing trial daily -trial of lorazepam to help with anxiety around weaning trials -consider low dose haldol to help with anxiety -Continue current ventilator settings -Nebulized albuterol and duo nebs -Expanded IV antibiotic coverage with Zosyn, levofloxacin -d/c vancomycin -Blood and sputum cultures pending -Stress ulcer prophylaxis with Protonix -DVT prophylaxis; SCUDs STATUS POST SIGMOIDECTOMY AND COLOPROCTOSTOMY SURGERY -Postoperative care per Dr. Genaro Abbott MD
[2017-09-28] MEDS ORDERED: LORazepam 2 MG/ML SDV ONE (09:11)
[2017-09-28] MEDS: LORazepam 2 MG/ML SDV IVPUSH PRN (09:13)
[2017-09-28] MEDS: Furosemide 20 MG/2 ML VIAL IVPUSH SCH ×2 (09:26→21:08)
[2017-09-28] MEDS ORDERED: Haloperidol Lactate 5 MG/ML SDV IVPUSH ONE (10:00)
--- NOTE | 2017-09-28 12:31 | PN ---
DATE OF SERVICE: 09/25/2017 Overnight, the patient had been relatively stable on T-max of 100.6, heart rates in the 110 to 120 range, and blood pressures dropped a little but with propofol, but generally running in the 100/50 range with a mean arterial pressure most recently at 68. From a perfusion standpoint, her lactate is normalized so I think we are doing okay in that regard. From a respiratory standpoint, the patient is quite strikingly hyperventilating and the chest x-ray would be suggestive of ARDS. Her gram stain showed fungal elements along with Gram positive cocci. The patient is on vancomycin and other antibiotics and we will add some Diflucan. We will discuss whether or not the patient may benefit from switching to Zyvox for the Gram positives, which would give her generally better lung FRANDY levels. Otherwise, NG tube output has been good, abdomen is quite a bit softer. The MILO drain in the incision was removed because it was leaking air and the side MILO is putting out minimal and remains clear. The abdomen is not particularly distended this morning with the NG tube decompressing what is probably a resolving ileus. The labs show white count of 6000, hemoglobin is 10.4, arterial blood gases were 7.63 with pCO2 of 29, pO2 of 67, O2 saturation of 96%. The ventilator was changed after with follow up blood gases pending. The patient's potassium has been quite low. Her phosphate was profoundly low this morning at 0.6, so she going to be getting 60 mmol of K-Phos starting almost immediately. Otherwise, we will continue her supportive care and manage with the assistance of Dr. Ramirez. Gary Lam MD Job #: [id number]
--- NOTE | 2017-09-28 13:28 | PN ---
DATE OF SERVICE: 09/26/2017 The patient has been clinically fairly stable. She still has quite a bit in way of what appeared to be ARDS and management continues per Dr. Ramirez. I discussed with Dr. Ramirez about possibly weaning the patient, although I suspect that is not quite going to be able to be done yet. From an abdominal standpoint, her abdomen is soft. There is flatus or bowel movement as of yet. MILO drain is clear and NG tube continues to put out a moderate amount. At this point, we will await the resolution of the ileus and continue with management of the pulmonary and cardiac status per Dr. Ramirez. Gary Lam MD Job #: [id number]
--- NOTE | 2017-09-28 13:49 | PN ---
DATE OF SERVICE: 09/27/2017 The patient clinically appears to be stable and respiratory status improving gradually; she is presently on 40% with an AC of 12, and actually have a weaning trial today. Otherwise, her GI tract appears to be reasonably functioning. She has moved her bowels, and NG output now has become quite low. We will continue the management with assistance of Dr. Ramirez. Once she is extubated and remains off ventilator for a day or so, we can resume diet at that time. Gary Lam MD Job #: [id number]
[2017-09-28] MEDS: Levofloxacin/Dextrose 5%-Water 750 MG in Premix Bag 1 BAG IV SCH (13:55)
[2017-09-28] MEDS: Pantoprazole 40 MG Vial IV SCH (16:38)
[2017-09-29] MEDS: Piperacillin/Tazobactam/Dext 3.375 GM in Premix Bag 1 BAG IV SCH ×4 (00:22→18:12)
[2017-09-29] MEDS ORDERED: Heparin Sodium 5,000 Units/ML Vial ONE (00:32)
[2017-09-29] MEDS: Heparin Sodium 5,000 UNITS in Sodium Chloride 0.9% 500 ML IV SCH (00:49)
[2017-09-29] MEDS: methylPREDNISolone Sodium Succinate 40 MG/1 ML SDV IVPUSH SCH ×2 (06:00→18:11)
[2017-09-29] MEDS: Albuterol/Ipratropium 3.0-0.5 MG/3 ML Neb Soln NEB SCH ×4 (07:06→21:04)
--- NOTE | 2017-09-29 07:16 | PN ---
DATE OF SERVICE: 09/28/2017 The patient is running temperature at around 99. Vital signs otherwise stable. Heart rate is in the 70s to 80s over the last several hours, and urine output remains satisfactory with a net diuresis of around 540 recorded over the last 24 hours. She was not quite ready to wean from the ventilator yesterday. NG output has been relatively scant, but she did have some slightly brown fluid in the MILO drain, which is a change. This may be a little pocket of fluid. Clinically, she is not acting infected like she has a leak from hemodynamic standpoint or overall clinical presentation. White count remains normal at 9.8; this is something we will need to watch over time, and if she does show signs of significant sepsis, we would need to investigate that further at that point. Gary Lam MD Job #: [id number]
[2017-09-29] MEDS: LORazepam 2 MG/ML SDV IVPUSH PRN (07:27)
[2017-09-29] MEDS: Fluconazole/Normal Saline 400 MG in Premix Bag 1 BAG IV SCH (07:36)
[2017-09-29] MEDS ORDERED: Potassium Phosphates 20 MMOLE in Sodium Chloride 0.9% 250 ML IV ONE (08:30)
[2017-09-29] MEDS: HYDROmorphone 0.5 MG/0.5 ML Syringe IVPUSH PRN (08:34)
[2017-09-29] MEDS: Furosemide 20 MG/2 ML VIAL IVPUSH SCH ×2 (08:40→21:05)
--- NOTE | 2017-09-29 09:07 | PCM.CONSN ---
- General Info Date of Service: 09/29/17 Functional Status: Reports: Pain Controlled - Review of Systems General: Denies: Fever Systems Review Comment:: There were no acute events overnight. She has had some mild intermittent hypertension but heart rate has been stable. She has not had any fevers. Spontaneous breathing trial went very well this morning and the patient did not develop tachypnea or tachycardia. She has remained calm. She was successfully extubated around 9 AM. She has required supplemental oxygen since then but has remained stable. Her voice is very weak after having the endotracheal tube in place and does not offer much history. She does not endorse pain at this time. - Patient Data Vitals - Most Recent: Last Vital Signs Temp 36.6 C 09/29/17 07:59 Pulse 87 09/29/17 08:52 Resp 15 09/29/17 08:52 BP 180/74 H 09/29/17 08:52 Pulse Ox 96 09/29/17 08:52 Weight - Most Recent: 79.605 kg I&O - Last 24 Hours: Intake & Output 09/28/17 09/29/17 09/29/17 22:59 06:59 14:59 Intake Total 1188 472 Output Total 255 1360 70 Balance 933 -888 -70 Lab Results Last 24 Hours: Laboratory Results - last 24 hr 09/29/17 09/29/17 09/29/17 Range/Units 05:00 05:05 05:05 WBC 10.7 (4.5-11.0) K/uL RBC 3.61 (3.30-5.50) M/uL Hgb 10.6 L (12.0-15.0) g/dL Hct 32.9 L (36.0-48.0) % MCV 91 (80-98) fL MCH 29 (27-31) pg MCHC 32 (32-36) % Plt Count 265 (150-400) K/uL Puncture Site A-line ABG pH 7.506 H (7.350-7.450) ABG pCO2 39.1 (35.0-42.0) mmHg ABG pO2 90.5 (75.0-100.0) mmHg ABG HCO3 30.7 H (22.0-26.0) mmol/L ABG Total CO2 27.8 H (21.0-25.0) mmol/L ABG O2 Saturation 97.2 (95.0-98.0) % ABG O2 Content 14.2 L (15.0-23.0) %vol ABG Base Excess 7.3 mm/L ABG Hemoglobin 10.6 L (12.0-16.0) g/dL ABG Oxyhemoglobin 94.8 % ABG Carboxyhemoglobin 1.7 H (0.0-1.6) % ABG Methemoglobin 0.8 % Nader Test Not performed O2 Delivery Device Ventilator Sodium 143 (140-148) mmol/L Potassium 3.1 L (3.6-5.2) mmol/L Chloride 105 (100-108) mmol/L Carbon Dioxide 30 (21-32) mmol/L Anion Gap 11.1 (5.0-14.0) mmol/L BUN 24 H (7-18) mg/dL Creatinine 0.7 (0.6-1.0) mg/dL Est Cr Clr Drug Dosing 62.82 mL/min Estimated GFR (MDRD) > 60 (>60) Glucose 139 H (74-106) mg/dL Calcium 8.1 L (8.5-10.1) mg/dL Andrew Results Last 24 Hours: Microbiology 09/29/17 08:10 Gram Stain - Final Abdominal Fluid - Drainage 09/24/17 18:45 Aerobic Blood Culture - Preliminary Blood - Venous - Lab Draw NO GROWTH AFTER 4 DAYS Anaerobic Blood Culture - Preliminary NO GROWTH AFTER 4 DAYS 09/24/17 18:45 Aerobic Blood Culture - Preliminary Blood - Venous NO GROWTH AFTER 4 DAYS Anaerobic Blood Culture - Preliminary NO GROWTH AFTER 4 DAYS Med Orders - Current: Current Medications Acetaminophen (Tylenol Extra Strength) 1,000 mg PO Q6H [facility] Last Admin: 09/25/17 05:40 Dose: Not Given Albuterol (Proventil Neb Soln) 2.5 mg NEB Q4H PRN PRN Reason: Dyspnea Albuterol/Ipratropium (Duoneb 3.0-0.5 Mg/3 Ml) 3 ml NEB QIDRT [facility] Last Admin: 09/29/17 07:06 Dose: 3 ml Alprazolam (Xanax) 0.25 mg PO BEDTIME PRN PRN Reason: ANXIETY Bisacodyl (Dulcolax) 10 mg PO BID [facility] Last Admin: 09/24/17 23:51 Dose: Not Given Furosemide (Lasix) 20 mg IVPUSH Q12H [facility] Last Admin: 09/29/17 08:40 Dose: 20 mg Hydromorphone HCl (Dilaudid) 0.5 mg IVPUSH Q2H PRN PRN Reason: Pain Last Admin: 09/29/17 08:34 Dose: 0.5 mg Hydroxyzine HCl (Vistaril) 50 - 100 mg IM Q4H PRN PRN Reason: PAIN Last Admin: 09/27/17 19:28 Dose: 100 mg Piperacillin/Tazobactam/ (Dextrose 3.375 gm/ Premix) 50 mls @ 100 mls/hr IV Q6H [facility] Last Admin: 09/29/17 06:01 Dose: 100 mls/hr Levofloxacin/Dextrose 750 mg/ (Premix) 150 mls @ 100 mls/hr IV Q24H [facility] Last Admin: 09/28/17 13:55 Dose: 100 mls/hr Heparin Sodium (Porcine) 5,000 (units/ Sodium Chloride) 501 mls @ 0 mls/hr IV ASDIRECTED [facility] Last Admin: 09/29/17 00:49 Dose: 5 mls/hr Fluconazole/Sodium Chloride (400 mg/ Premix) 200 mls @ 100 mls/hr IV Q24H [facility] Last Admin: 09/29/17 07:36 Dose: 100 mls/hr Potassium Phosphate 20 mmole/ (Sodium Chloride) 256.6667 mls @ 85 mls/hr IV ONETIME ONE Stop: 09/29/17 11:31 Last Admin: 09/29/17 08:44 Dose: 85 mls/hr Potassium Phosphate 25 mmole/ (Sodium Chloride) 508.3333 mls @ 127 mls/hr IV ONETIME ONE Stop: 09/29/17 16:00 Ibuprofen (Motrin) 400 mg PO Q6H [facility] Last Admin: 09/25/17 05:40 Dose: Not Given Lorazepam (Ativan) 0.5 mg IVPUSH Q1H PRN PRN Reason: Anxiety Last Admin: 09/29/17 07:27 Dose: 0.5 mg Methylprednisolone Sodium Succinate (Solu-Medrol) 40 mg IVPUSH Q12H [facility] Last Admin: 09/29/17 06:00 Dose: 40 mg Metoprolol Succinate (Toprol Xl) 50 mg PO DAILY [facility] Last Admin: 09/24/17 09:32 Dose: 50 mg Ondansetron HCl (Zofran) 4 mg IV Q4H PRN PRN Reason: N/V Last Admin: 09/22/17 20:24 Dose: 4 mg Pantoprazole Sodium (Protonix Iv) 40 mg IV Q24H [facility] Last Admin: 09/28/17 16:38 Dose: 40 mg Senna/Docusate Sodium (Senna Plus) 2 tab PO DAILY [facility] Last Admin: 09/24/17 09:29 Dose: 2 tab Venlafaxine HCl (Effexor Xr) 75 mg PO DAILY [facility] Last Admin: 09/24/17 09:29 Dose: 75 mg Discontinued Medications Acetaminophen (Tylenol Extra Strength) 1,000 mg PO ONETIME ONE Stop: 09/21/17 08:01 Last Admin: 09/21/17 08:14 Dose: 1,000 mg Albuterol/Ipratropium (Duoneb 3.0-0.5 Mg/3 Ml) 3 ml NEB ONETIME ONE Stop: 09/23/17 23:59 Last Admin: 09/24/17 00:10 Dose: Not Given Albuterol/Ipratropium (Duoneb 3.0-0.5 Mg/3 Ml) 3 ml NEB Q4H [facility] Last Admin: 09/24/17 11:04 Dose: 3 ml Alvimopan (Entereg) 12 mg PO ONETIME ONE Stop: 09/21/17 08:01 Last Admin: 09/21/17 08:14 Dose: 12 mg Alvimopan (Entereg) 12 mg PO BID [facility] Stop: 09/28/17 09:01 Last Admin: 09/23/17 21:11 Dose: 12 mg Bisacodyl (Dulcolax) 10 mg RECTAL ONETIME ONE Stop: 09/23/17 10:01 Last Admin: 09/23/17 10:11 Dose: 10 mg Bisacodyl (Dulcolax) 10 mg RECTAL ONETIME ONE Stop: 09/24/17 09:01 Last Admin: 09/24/17 10:45 Dose: Not Given Bupivacaine HCl (Marcaine 0.5%) Confirm Administered Dose 50 ml .ROUTE .STK-MED ONE Stop: 09/23/17 06:44 Last Admin: 09/23/17 07:37 Dose: 17.5 ml Ropivacaine 36 ml/Dexamethasone 8 mg/Epinephrine HCl 0.4 mg/ Sodium Chloride 41.6 ml 0 ml NERVRT ASDIRECTED [facility] Last Admin: 09/23/17 07:30 Dose: 80 syringe Dexamethasone (Dexamethasone) Confirm Administered Dose 4 mg .ROUTE .STK-MED ONE Stop: 09/21/17 07:48 Diphenhydramine HCl (Benadryl) 25 - 50 mg IVPUSH Q6H PRN PRN Reason: ITCHING Fentanyl (Sublimaze) Confirm Administered Dose 100 mcg .ROUTE .STK-MED ONE Stop: 09/21/17 07:51 Fentanyl (Sublimaze) Confirm Administered Dose 250 mcg .ROUTE .STK-MED ONE Stop: 09/21/17 12:23 Fentanyl Citrate (Fentanyl) Confirm Administered Dose 500 mcg .ROUTE .STK-MED ONE Stop: 09/21/17 07:52 Furosemide (Lasix) 20 mg IVPUSH STAT ONE Stop: 09/23/17 07:01 Last Admin: 09/23/17 07:05 Dose: 20 mg Furosemide (Lasix) 20 mg IVPUSH BID@1000,1700 [facility] Stop: 09/23/17 17:01 Last Admin: 09/23/17 17:08 Dose: 20 mg Furosemide (Lasix) 40 mg IVPUSH ONETIME ONE Stop: 09/23/17 21:45 Last Admin: 09/23/17 21:54 Dose: 40 mg Furosemide (Lasix) 20 mg IVPUSH ONETIME ONE Stop: 09/24/17 08:01 Last Admin: 09/24/17 09:23 Dose: 20 mg Furosemide (Lasix) 40 mg IVPUSH NOW ONE Stop: 09/24/17 18:46 Last Admin: 09/24/17 20:02 Dose: 40 mg Furosemide (Lasix) 20 mg IV ONETIME ONE Stop: 09/25/17 10:51 Last Admin: 09/25/17 12:03 Dose: 20 mg Glycopyrrolate (Robinul) Confirm Administered Dose 1 mg .ROUTE .STK-MED ONE Stop: 09/21/17 07:48 Haloperidol Lactate (Haldol) 2 mg IVPUSH ONETIME ONE Stop: 09/28/17 10:01 Last Admin: 09/28/17 10:01 Dose: 2 mg Heparin Sodium (Porcine) (Heparin Sodium) Confirm Administered Dose 5,000 units .ROUTE .[facility] ONE Stop: 09/24/17 17:08 Last Admin: 09/24/17 19:34 Dose: Not Given Heparin Sodium (Porcine) (Heparin Sodium) Confirm Administered Dose 5,000 units .ROUTE .[facility] ONE Stop: 09/29/17 00:33 Last Admin: 09/29/17 00:50 Dose: Not Given Hydroxyzine HCl (Vistaril) 50 mg IM ONETIME ONE Stop: 09/21/17 14:17 Last Admin: 09/21/17 14:20 Dose: 50 mg Dextrose/Lactated Ringer's (Dextrose 5%-Lactated Ringers) 1,000 mls @ 100 mls/ hr IV ASDIRECTED [facility] Last Admin: 09/21/17 09:51 Dose: 100 mls/hr Cefoxitin Sodium 2 gm/ Sodium (Chloride) 50 mls @ 100 mls/hr IV ONETIME ONE Stop: 09/21/17 08:29 Last Admin: 09/21/17 20:11 Dose: Not Given Sodium Chloride (Normal Saline) Confirm Administered Dose 10 mls @ as directed .ROUTE .[facility] ONE Stop: 09/21/17 07:51 Fentanyl 2,500 mcg/ Sodium (Chloride) 250 mls @ 0 mls/hr EPIDUR TITRATE [facility]; Protocol Last Admin: 09/23/17 13:05 Dose: 10 mls/hr, 10 mls/hr Dextrose/Lactated Ringer's (Dextrose 5%-Lactated Ringers) 1,000 mls @ 150 mls/ hr IV ASDIRECTED [facility] Last Admin: 09/23/17 03:10 Dose: 150 mls/hr Cefoxitin Sodium 2 gm/ Sodium (Chloride) 50 mls @ 100 mls/hr IV Q6H [facility] Stop: 09/22/17 17:29 Last Admin: 09/22/17 17:34 Dose: 100 mls/hr Lactated Ringer's (Ringers, Lactated) 500 mls @ 5 mls/hr IV ASDIRECTED [facility] Last Admin: 09/22/17 00:30 Dose: 5 mls/hr Lactated Ringer's (Ringers, Lactated) 500 mls @ 500 mls/hr IV ASDIRECTED [facility] Dextrose/Lactated Ringer's (Dextrose 5%-Lactated Ringers) 1,000 mls @ 80 mls/ hr IV ASDIRECTED [facility] Last Admin: 09/26/17 05:58 Dose: 80 mls/hr Magnesium Sulfate 2 gm/ Premix 50 mls @ 25 mls/hr IV Q6H [facility] Stop: 09/27/17 05:59 Last Admin: 09/27/17 03:51 Dose: 25 mls/hr Potassium Chloride 20 meq/ (Premix) 100 mls @ 50 mls/hr IV ONETIME ONE Stop: 09/24/17 09:59 Last Admin: 09/24/17 09:26 Dose: 50 mls/hr Sodium Chloride (Normal Saline) 90 mls @ 3 mls/sec IV ONETIME ONE Stop: 09/24/17 13:52 Last Admin: 09/24/17 15:34 Dose: Not Given Propofol (Diprivan 100 Ml) Confirm Administered Dose 100 mls @ as directed .ROUTE .STK-MED ONE Stop: 09/24/17 17:03 Last Admin: 09/24/17 19:03 Dose: Not Given Propofol (Diprivan 100 Ml) 100 mls @ 19.073 mls/hr IV TITRATE [facility]; Protocol Last Admin: 09/29/17 05:12 Dose: 70 mcg/kg/min, 33.377 mls/hr Potassium Chloride 40 meq/ (Premix) 100 mls @ 25 mls/hr IV ONETIME ONE Stop: 09/24/17 22:07 Last Admin: 09/25/17 07:21 Dose: Not Given Linezolid 600 mg/ Premix 300 mls @ 300 mls/hr IV Q12H [facility] Last Admin: 09/25/17 08:05 Dose: Not Given Potassium Chloride 20 meq/ (Premix) 100 mls @ 50 mls/hr IV Q2H [facility] Stop: 09/24/17 23:59 Last Admin: 09/24/17 23:03 Dose: 50 mls/hr Vancomycin HCl 2,000 mg/ (Dextrose/Water) 500 mls @ 250 mls/hr IV Q24H [facility] Last Admin: 09/24/17 21:06 Dose: 250 mls/hr Vancomycin HCl 1.25 gm/ Sodium (Chloride) 250 mls @ 166.667 mls/hr IV Q24H [facility] Potassium Chloride 20 meq/ (Premix) 100 mls @ 50 mls/hr IV Q2H [facility] Stop: 09/25/17 02:59 Last Admin: 09/25/17 07:21 Dose: Not Given Potassium Chloride 20 meq/ (Premix) 100 mls @ 50 mls/hr IV Q2H [facility] Stop: 09/25/17 05:29 Last Admin: 09/25/17 03:38 Dose: 50 mls/hr Potassium Chloride 20 meq/ (Premix) 100 mls @ 50 mls/hr IV Q2H [facility] Stop: 09/25/17 09:59 Last Admin: 09/25/17 05:46 Dose: 50 mls/hr Sodium Chloride (Normal Saline) 1,000 mls @ 500 mls/hr IV ASDIRECTED [facility] Last Admin: 09/24/17 01:30 Dose: 500 mls/hr Potassium Phosphate 20 mmole/ (Sodium Chloride) 256.6667 mls @ 85 mls/hr IV Q3H [facility] Stop: 09/25/17 16:29 Last Admin: 09/25/17 14:31 Dose: 85 mls/hr Vancomycin HCl 1.25 gm/ Sodium (Chloride) 250 mls @ 166.667 mls/hr IV Q12H [facility] Stop: 09/26/17 14:00 Last Admin: 09/26/17 10:24 Dose: 166.667 mls/hr Sodium Chloride (Normal Saline) 70 mls @ 3 mls/sec IV ONETIME ONE Stop: 09/25/17 11:20 Last Admin: 09/25/17 12:16 Dose: 3 mls/sec Potassium Chloride 20 meq/ (Premix) 0 mls @ 50 mls/hr IV Q2H [facility] Stop: 09/26/17 07:00 Potassium Chloride 20 meq/ (Premix) 100 mls @ 50 mls/hr IV Q2H [facility] Stop: 09/26/17 08:59 Last Admin: 09/26/17 07:29 Dose: 50 mls/hr Lidocaine HCl (Xylocaine-Mpf 1%) Confirm Administered Dose 2 mls @ as directed .ROUTE .STK-MED ONE Stop: 09/26/17 04:49 Last Admin: 09/26/17 04:55 Dose: 2 mls/hr Vancomycin HCl 1.5 gm/ Sodium (Chloride) 250 mls @ 166.667 mls/hr IV Q12H [facility] Last Admin: 09/28/17 11:22 Dose: 166.667 mls/hr Potassium Chloride 20 meq/Lidocaine HCl 2 ml/ Sodium Chloride 112 mls @ 50 mls/ hr IV Q2H [facility] Stop: 09/26/17 23:59 Last Admin: 09/26/17 22:09 Dose: 50 mls/hr Potassium Chloride (Kcl 20 Meq In Water 100 Ml) Confirm Administered Dose 200 mls @ as directed .ROUTE .STK-MED ONE Stop: 09/26/17 20:02 Last Admin: 09/26/17 20:10 Dose: Not Given Potassium Chloride 20 meq/Lidocaine HCl 2 ml/ Sodium Chloride 112 mls @ 50 mls/ hr IV Q2H [facility] Stop: 09/28/17 00:59 Last Admin: 09/27/17 23:01 Dose: 50 mls/hr Potassium Chloride (Kcl 20 Meq In Water 100 Ml) Confirm Administered Dose 200 mls @ as directed .ROUTE .STK-MED ONE Stop: 09/27/17 20:51 Last Admin: 09/27/17 20:56 Dose: Not Given Iopamidol (Isovue-370 (76%)) 75 ml IV . DIRECTED [facility] Stop: 09/24/17 23:00 Last Admin: 09/25/17 11:24 Dose: 75 ml Iopamidol (Isovue-370 (76%)) 75 ml IV . DIRECTED [facility] Stop: 09/25/17 14:00 Lidocaine HCl (Xylocaine-Mpf 1%) 5 ml INJECT ONETIME ONE Stop: 09/24/17 20:08 Last Admin: 09/24/17 20:31 Dose: 5 ml Lidocaine HCl (Xylocaine-Mpf 1%) 5 ml INJECT ONETIME ONE Stop: 09/25/17 01:31 Last Admin: 09/25/17 01:41 Dose: 5 ml Lidocaine HCl (Xylocaine-Mpf 1%) 2 ml INJECT ONETIME ONE Stop: 09/25/17 05:23 Last Admin: 09/25/17 05:46 Dose: 2 ml Lidocaine HCl (Xylocaine-Mpf 1%) 5 ml INJECT ONETIME ONE Stop: 09/26/17 00:29 Last Admin: 09/26/17 00:49 Dose: 5 ml Lidocaine/Epinephrine (Xylocaine 1% With Epinephrine 1:100,000) Confirm Administered Dose 50 ml .ROUTE .STK-MED ONE Stop: 09/23/17 06:44 Last Admin: 09/23/17 07:37 Dose: 17.5 ml Lorazepam (Ativan) 0.5 mg IVPUSH Q2H PRN PRN Reason: Anxiety Last Admin: 09/25/17 07:47 Dose: 0.5 mg Meropenem (Merrem) Confirm Administered Dose 500 mg .ROUTE .STK-MED ONE Stop: 09/21/17 07:04 Last Admin: 09/21/17 13:24 Dose: 500 mg Meropenem (Merrem) Confirm Administered Dose 500 mg .ROUTE .STK-MED ONE Stop: 09/23/17 06:44 Last Admin: 09/23/17 07:38 Dose: 500 mg Methylprednisolone Sodium Succinate (Solu-Medrol) 40 mg IVPUSH Q6H [facility] Last Admin: 09/28/17 12:32 Dose: 40 mg Naloxone HCl (Narcan) 0.1 mg IVPUSH Q5M PRN PRN Reason: RESP RATE LESS THAN 6/MINUTE Naloxone HCl (Narcan) 0.4 mg IV ASDIRECTED PRN PRN Reason: ITCHING Neostigmine Methylsulfate (Neostigmine) Confirm Administered Dose 5 mg .ROUTE .STK-MED ONE Stop: 09/21/17 07:48 Ask About Scop Patch 0 each .XX ONETIME ONE Stop: 09/24/17 08:01 Last Admin: 09/24/17 10:18 Dose: Not Given Ondansetron HCl (Zofran) Confirm Administered Dose 4 mg .ROUTE .STK-MED ONE Stop: 09/21/17 07:48 Potassium Chloride (Klor-Con M20) 20 meq PO TIDMEALS [facility] Last Admin: 09/24/17 18:58 Dose: Not Given Propofol (Diprivan 20 Ml) Confirm Administered Dose 200 mg .ROUTE .STK-MED ONE Stop: 09/21/17 07:48 Propofol (Diprivan 20 Ml) Confirm Administered Dose 200 mg .ROUTE .STK-MED ONE Stop: 09/23/17 06:42 Propofol (Diprivan 20 Ml) Confirm Administered Dose 200 mg .ROUTE .STK-MED ONE Stop: 09/24/17 17:28 Last Admin: 09/24/17 19:34 Dose: Not Given Rocuronium [place] (Zemuron) Confirm Administered Dose 50 mg .ROUTE .STK-MED ONE Stop: 09/21/17 07:48 Scopolamine (Transderm-Scop) 1.5 mg TOP Q72H [facility] Stop: 09/24/17 02:00 Last Admin: 09/21/17 08:37 Dose: 1.5 mg Scopolamine (Transderm-Scop) 1.5 mg TOP Q72H [facility] Stop: 09/27/17 08:59 Last Admin: 09/24/17 10:19 Dose: 1.5 mg Sodium Chloride (Saline Flush) 10 ml FLUSH ONETIME PRN PRN Reason: PER RADIOLOGY PROTOCOL Stop: 09/24/17 20:00 Last Admin: 09/25/17 11:23 Dose: 10 ml Sodium Chloride (Saline Flush) 10 ml FLUSH ONETIME PRN PRN Reason: PER RADIOLOGY PROTOCOL Stop: 09/25/17 14:00 Succinylcholine Chloride (Quelicin) Confirm Administered Dose 200 mg .ROUTE .STK -MED ONE Stop: 09/21/17 07:48 Succinylcholine Chloride (Quelicin) Confirm Administered Dose 200 mg .ROUTE .STK -MED ONE Stop: 09/24/17 17:28 Last Admin: 09/24/17 19:34 Dose: Not Given Tramadol HCl (Ultram) 50 mg PO Q6H [facility] Last Admin: 09/24/17 05:13 Dose: Not Given Vancomycin HCl (Vancomycin) 0 gm IV .PHARMACY TO DOSE [facility] Stop: 09/25/17 07:30 - Exam Quality Assessment: Supplemental Oxygen, Urine Catheter, DVT Prophylaxis General: Alert, Cooperative, No Acute Distress HEENT: Pupils Equal Neck: Supple Lungs: Clear to Auscultation, Normal Respiratory Effort, Decreased Breath Sounds (mild right lung base) Cardiovascular: Regular Rate, Regular Rhythm GI/Abdominal Exam: Normal Bowel Sounds (right lower abdomen), Soft, No Distention, Abnormal Bowel Sounds (decreased left lower abdomen ) Extremities: No Pedal Edema. No: Increased Warmth Skin: Warm, Dry Wound/Incisions: Dressing Dry and Intact Psy/Mental Status: Alert. No: Anxious Consult PN Assessment/Plan Procedures: Procedures ASSAY OF CREATININE (05/25/17) CONTRAST X-RAY EXAM OF COLON (05/15/17) CT ABD & PELV W/CONTRAST (05/25/17) DIAGNOSTIC COLONOSCOPY (05/15/17) ROUTINE VENIPUNCTURE (05/25/17) SCR MAMMO BI INCL CAD (04/03/17) Problem List Initiated/Reviewed/Updated: Yes My Orders Last 24 Hours: My Active Orders 09/28/17 09:02 LORazepam [Ativan] 0.5 mg IVPUSH Q1H PRN 09/28/17 18:00 methylPREDNISolone Sod Succ [Solu-MEDROL] 40 mg IVPUSH Q12H 09/29/17 09:04 Extubation [RT Extubation] [RC] Click to Edit Plan: ASSESSMENT AND RECOMMENDATIONS ACUTE HYPOXIC RESPIRATORY FAILURE - evidence of bilateral pneumonia on chest x- ray and CT scan, also probable component of fluid overload. Volume status currently seems to be appropriate. Lungs are clearing each day. She was successfully extubated this morning. -Nebulized albuterol and duo nebs -Expanded IV antibiotic coverage with Zosyn, levofloxacin, reassess tomorrow -Continue fluconazole for now -Blood and sputum cultures pending -Stress ulcer prophylaxis with Protonix -DVT prophylaxis; SCUDs STATUS POST SIGMOIDECTOMY AND COLOPROCTOSTOMY SURGERY -Postoperative care per Dr. Genaro Abbott MD
[2017-09-29] MEDS ORDERED: Potassium Phosphates 25 MMOLE in Sodium Chloride 0.9% 500 ML IV ONE (12:00)
[2017-09-29] MEDS: Levofloxacin/Dextrose 5%-Water 750 MG in Premix Bag 1 BAG IV SCH (14:45)
[2017-09-29] MEDS ORDERED: Dimethicone 20%/Zinc Oxide 25% 56 GM Spray Bottle TOP PRN (15:43)
[2017-09-29] MEDS: 1: AA 5%/Calcium/D15W/Lytes 1,000 ML with MVI, Adult with Vitamin K 10 ML, Chromium/Copp IV SCH ×3 (16:25)
[2017-09-29] MEDS: Pantoprazole 40 MG Vial IV SCH (18:08)
[2017-09-29] MEDS ORDERED: Sodium Chloride 0.9% 500 ML IV ONE (19:38)
[2017-09-29] MEDS: Metoprolol Tartrate 25 MG Tab PO SCH (21:18)
[2017-09-30] MEDS: Piperacillin/Tazobactam/Dext 3.375 GM in Premix Bag 1 BAG IV SCH ×4 (00:13→18:37)
[2017-09-30] MEDS: hydrOXYzine HCl 100 MG/2 ML SDV IM PRN (00:19)
[2017-09-30] MEDS: methylPREDNISolone Sodium Succinate 40 MG/1 ML SDV IVPUSH SCH (05:58)
[2017-09-30] MEDS: Albuterol/Ipratropium 3.0-0.5 MG/3 ML Neb Soln NEB SCH ×4 (07:15→20:26)
[2017-09-30] MEDS: 1: AA 5%/Calcium/D15W/Lytes 1,000 ML with MVI, Adult with Vitamin K 10 ML, Chromium/Copp IV SCH ×6 (07:25→21:23)
[2017-09-30] MEDS: Fluconazole/Normal Saline 400 MG in Premix Bag 1 BAG IV SCH (08:11)
[2017-09-30] MEDS: Potassium Phosphates 22.5 MMOLE in Sodium Chloride 0.9% 100 ML IV SCH ×2 (09:04→13:46)
[2017-09-30] MEDS: Hydrochlorothiazide 25 MG Tab PO SCH (09:05)
[2017-09-30] MEDS: Metoprolol Tartrate 25 MG Tab PO SCH ×2 (09:05→20:24)
[2017-09-30] MEDS: Venlafaxine 75 MG Cap.ER PO SCH (09:06)
--- NOTE | 2017-09-30 09:39 | PCM.CONSN ---
- General Info Date of Service: 09/30/17 Functional Status: Reports: Pain Controlled - Review of Systems General: Reports: Weakness. Denies: Fever Systems Review Comment:: No acute events since extubation. Respiratory status has remained stable. Patient is more alert and interactive today. Small amount of abdominal pain. MILO drainage is no serosanguineous. Still requiring supplemental oxygen. She is very weak and requires significant assistance. - Patient Data Vitals - Most Recent: Last Vital Signs Temp 36.0 C 09/30/17 08:00 Pulse 75 09/30/17 09:05 Resp 20 09/30/17 08:00 BP 170/63 H 09/30/17 09:05 Pulse Ox 91 L 09/30/17 08:00 Weight - Most Recent: 77.836 kg I&O - Last 24 Hours: Intake & Output 09/29/17 09/30/17 09/30/17 22:59 06:59 14:59 Intake Total 1346 Output Total 2089 2059 Balance -4 -2059 Lab Results Last 24 Hours: Laboratory Results - last 24 hr 09/30/17 09/30/17 Range/Units 04:31 04:31 WBC 14.3 H (4.5-11.0) K/uL RBC 3.66 (3.30-5.50) M/uL Hgb 10.7 L (12.0-15.0) g/dL Hct 33.1 L (36.0-48.0) % MCV 90 (80-98) fL MCH 29 (27-31) pg MCHC 32 (32-36) % Plt Count 265 (150-400) K/uL Sodium 145 (140-148) mmol/L Potassium 3.2 L (3.6-5.2) mmol/L Chloride 107 (100-108) mmol/L Carbon Dioxide 30 (21-32) mmol/L Anion Gap 11.2 (5.0-14.0) mmol/L BUN 22 H (7-18) mg/dL Creatinine 0.5 L (0.6-1.0) mg/dL Est Cr Clr Drug Dosing 87.95 mL/min Estimated GFR (MDRD) > 60 (>60) Glucose 186 H (74-106) mg/dL Calcium 7.9 L (8.5-10.1) mg/dL Phosphorus 3.5 (2.5-4.9) mg/dL Magnesium 2.2 (1.8-2.4) mg/dL Total Bilirubin 0.4 (0.2-1.0) mg/dL AST 32 (15-37) U/L ALT 35 (12-78) U/L Alkaline Phosphatase 80 (46-116) U/L NT-Pro-B Natriuret Pep 964 H (5-125) pg/mL Total Protein 5.8 L (6.4-8.2) g/dL Albumin 1.8 L (3.4-5.0) g/dL Globulin 4.0 H (2.3-3.5) g/dL Albumin/Globulin Ratio 0.5 L (1.2-2.2) Andrew Results Last 24 Hours: Microbiology 09/29/17 08:10 Gram Stain - Final Abdominal Fluid - Drainage Body Fluid Culture - Preliminary 09/24/17 18:45 Aerobic Blood Culture - Final Blood - Venous - Lab Draw NO GROWTH AFTER 5 DAYS Anaerobic Blood Culture - Final NO GROWTH AFTER 5 DAYS 09/24/17 18:45 Aerobic Blood Culture - Final Blood - Venous NO GROWTH AFTER 5 DAYS Anaerobic Blood Culture - Final NO GROWTH AFTER 5 DAYS Med Orders - Current: Current Medications Acetaminophen (Tylenol Extra Strength) 1,000 mg PO Q6H [facility] Last Admin: 09/25/17 05:40 Dose: Not Given Albuterol (Proventil Neb Soln) 2.5 mg NEB Q4H PRN PRN Reason: Dyspnea Albuterol/Ipratropium (Duoneb 3.0-0.5 Mg/3 Ml) 3 ml NEB QIDRT [facility] Last Admin: 09/30/17 07:15 Dose: 3 ml Alprazolam (Xanax) 0.25 mg PO BEDTIME PRN PRN Reason: ANXIETY Last Admin: 09/29/17 21:20 Dose: 0.25 mg Bisacodyl (Dulcolax) 10 mg PO BID [facility] Last Admin: 09/24/17 23:51 Dose: Not Given Dimethicone/Zinc Oxide (Rash Relief-Zinc Oxide Roslyn) 1 gm TOP ASDIRECTED PRN PRN Reason: Rash Last Admin: 09/29/17 16:30 Dose: 1 spray Hydrochlorothiazide (Hydrochlorothiazide) 25 mg PO DAILY [facility] Last Admin: 09/30/17 09:05 Dose: 25 mg Hydromorphone HCl (Dilaudid) 0.5 mg IVPUSH Q2H PRN PRN Reason: Pain Last Admin: 09/29/17 08:34 Dose: 0.5 mg Hydroxyzine HCl (Vistaril) 50 - 100 mg IM Q4H PRN PRN Reason: PAIN Last Admin: 09/30/17 00:19 Dose: 50 mg Piperacillin/Tazobactam/ (Dextrose 3.375 gm/ Premix) 50 mls @ 100 mls/hr IV Q6H [facility] Last Admin: 09/30/17 06:00 Dose: 100 mls/hr Levofloxacin/Dextrose 750 mg/ (Premix) 150 mls @ 100 mls/hr IV Q24H [facility] Last Admin: 09/29/17 14:45 Dose: 100 mls/hr Fluconazole/Sodium Chloride (400 mg/ Premix) 200 mls @ 100 mls/hr IV Q24H [facility] Last Admin: 09/30/17 08:11 Dose: 100 mls/hr Multivitamins/Minerals 10 ml/Chromium/Copper/Manganese/Seleni/Zn 1 ml/ Amino Ac/ Electrol/Dextrose/Calcium 1,011 mls @ 67 mls/hr IV .BY DURATION [facility] Last Admin: 09/29/17 16:25 Dose: 67 mls/hr Amino Ac/Electrol/Dextrose/Calcium (Clinimix E 515) 1,000 mls @ 67 mls/hr IV .BY DURATION [facility] Last Admin: 09/30/17 07:25 Dose: 67 mls/hr Sodium Chloride (Normal Saline) 500 mls @ 15 mls/hr IV ASDIRECTED ONE Stop: 10/01/17 04:57 Last Admin: 09/29/17 21:05 Dose: 15 mls/hr Potassium Phosphate 22.5 mmole (/ Sodium Chloride) 107.5 mls @ 31 mls/hr IV Q4H [facility] Stop: 09/30/17 16:59 Last Admin: 09/30/17 09:04 Dose: 31 mls/hr Ibuprofen (Motrin) 400 mg PO Q6H [facility] Last Admin: 09/25/17 05:40 Dose: Not Given Lorazepam (Ativan) 0.5 mg IVPUSH Q1H PRN PRN Reason: Anxiety Last Admin: 09/29/17 07:27 Dose: 0.5 mg Metoprolol Succinate (Toprol Xl) 50 mg PO DAILY [facility] Last Admin: 09/24/17 09:32 Dose: 50 mg Metoprolol Tartrate (Lopressor) 25 mg PO BID [facility] Last Admin: 09/30/17 09:05 Dose: 25 mg Ondansetron HCl (Zofran) 4 mg IV Q4H PRN PRN Reason: N/V Last Admin: 09/22/17 20:24 Dose: 4 mg Pantoprazole Sodium (Protonix Iv) 40 mg IV Q24H [facility] Last Admin: 09/29/17 18:08 Dose: 40 mg Senna/Docusate Sodium (Senna Plus) 2 tab PO DAILY [facility] Last Admin: 09/24/17 09:29 Dose: 2 tab Venlafaxine HCl (Effexor Xr) 75 mg PO DAILY [facility] Last Admin: 09/24/17 09:29 Dose: 75 mg Venlafaxine HCl (Effexor Xr) 75 mg PO DAILY [facility] Last Admin: 09/30/17 09:06 Dose: 75 mg Discontinued Medications Acetaminophen (Tylenol Extra Strength) 1,000 mg PO ONETIME ONE Stop: 09/21/17 08:01 Last Admin: 09/21/17 08:14 Dose: 1,000 mg Albuterol/Ipratropium (Duoneb 3.0-0.5 Mg/3 Ml) 3 ml NEB ONETIME ONE Stop: 09/23/17 23:59 Last Admin: 09/24/17 00:10 Dose: Not Given Albuterol/Ipratropium (Duoneb 3.0-0.5 Mg/3 Ml) 3 ml NEB Q4H [facility] Last Admin: 09/24/17 11:04 Dose: 3 ml Alvimopan (Entereg) 12 mg PO ONETIME ONE Stop: 09/21/17 08:01 Last Admin: 09/21/17 08:14 Dose: 12 mg Alvimopan (Entereg) 12 mg PO BID [facility] Stop: 09/28/17 09:01 Last Admin: 09/23/17 21:11 Dose: 12 mg Bisacodyl (Dulcolax) 10 mg RECTAL ONETIME ONE Stop: 09/23/17 10:01 Last Admin: 09/23/17 10:11 Dose: 10 mg Bisacodyl (Dulcolax) 10 mg RECTAL ONETIME ONE Stop: 09/24/17 09:01 Last Admin: 09/24/17 10:45 Dose: Not Given Bupivacaine HCl (Marcaine 0.5%) Confirm Administered Dose 50 ml .ROUTE .STK-MED ONE Stop: 09/23/17 06:44 Last Admin: 09/23/17 07:37 Dose: 17.5 ml Ropivacaine 36 ml/Dexamethasone 8 mg/Epinephrine HCl 0.4 mg/ Sodium Chloride 41.6 ml 0 ml NERVRT ASDIRECTED [facility] Last Admin: 09/23/17 07:30 Dose: 80 syringe Dexamethasone (Dexamethasone) Confirm Administered Dose 4 mg .ROUTE .STK-MED ONE Stop: 09/21/17 07:48 Diphenhydramine HCl (Benadryl) 25 - 50 mg IVPUSH Q6H PRN PRN Reason: ITCHING Fentanyl (Sublimaze) Confirm Administered Dose 100 mcg .ROUTE .STK-MED ONE Stop: 09/21/17 07:51 Fentanyl (Sublimaze) Confirm Administered Dose 250 mcg .ROUTE .STK-MED ONE Stop: 09/21/17 12:23 Fentanyl Citrate (Fentanyl) Confirm Administered Dose 500 mcg .ROUTE .STK-MED ONE Stop: 09/21/17 07:52 Furosemide (Lasix) 20 mg IVPUSH STAT ONE Stop: 09/23/17 07:01 Last Admin: 09/23/17 07:05 Dose: 20 mg Furosemide (Lasix) 20 mg IVPUSH BID@1000,1700 [facility] Stop: 09/23/17 17:01 Last Admin: 09/23/17 17:08 Dose: 20 mg Furosemide (Lasix) 40 mg IVPUSH ONETIME ONE Stop: 09/23/17 21:45 Last Admin: 09/23/17 21:54 Dose: 40 mg Furosemide (Lasix) 20 mg IVPUSH ONETIME ONE Stop: 09/24/17 08:01 Last Admin: 09/24/17 09:23 Dose: 20 mg Furosemide (Lasix) 40 mg IVPUSH NOW ONE Stop: 09/24/17 18:46 Last Admin: 09/24/17 20:02 Dose: 40 mg Furosemide (Lasix) 20 mg IV ONETIME ONE Stop: 09/25/17 10:51 Last Admin: 09/25/17 12:03 Dose: 20 mg Furosemide (Lasix) 20 mg IVPUSH Q12H [facility] Last Admin: 09/29/17 21:05 Dose: 20 mg Glycopyrrolate (Robinul) Confirm Administered Dose 1 mg .ROUTE .[facility] ONE Stop: 09/21/17 07:48 Haloperidol Lactate (Haldol) 2 mg IVPUSH ONETIME ONE Stop: 09/28/17 10:01 Last Admin: 09/28/17 10:01 Dose: 2 mg Heparin Sodium (Porcine) (Heparin Sodium) Confirm Administered Dose 5,000 units .ROUTE .[facility] ONE Stop: 09/24/17 17:08 Last Admin: 09/24/17 19:34 Dose: Not Given Heparin Sodium (Porcine) (Heparin Sodium) Confirm Administered Dose 5,000 units .[address] .[facility] ONE Stop: 09/29/17 00:33 Last Admin: 09/29/17 00:50 Dose: Not Given Hydroxyzine HCl (Vistaril) 50 mg IM ONETIME ONE Stop: 09/21/17 14:17 Last Admin: 09/21/17 14:20 Dose: 50 mg Dextrose/Lactated Ringer's (Dextrose 5%-Lactated Ringers) 1,000 mls @ 100 mls/ hr IV ASDIRECTED [facility] Last Admin: 09/21/17 09:51 Dose: 100 mls/hr Cefoxitin Sodium 2 gm/ Sodium (Chloride) 50 mls @ 100 mls/hr IV ONETIME ONE Stop: 09/21/17 08:29 Last Admin: 09/21/17 20:11 Dose: Not Given Sodium Chloride (Normal Saline) Confirm Administered Dose 10 mls @ as directed .ROUTE .[facility] ONE Stop: 09/21/17 07:51 Fentanyl 2,500 mcg/ Sodium (Chloride) 250 mls @ 0 mls/hr EPIDUR TITRATE [facility]; Protocol Last Admin: 09/23/17 13:05 Dose: 10 mls/hr, 10 mls/hr Dextrose/Lactated Ringer's (Dextrose 5%-Lactated Ringers) 1,000 mls @ 150 mls/ hr IV ASDIRECTED [facility] Last Admin: 09/23/17 03:10 Dose: 150 mls/hr Cefoxitin Sodium 2 gm/ Sodium (Chloride) 50 mls @ 100 mls/hr IV Q6H [facility] Stop: 09/22/17 17:29 Last Admin: 09/22/17 17:34 Dose: 100 mls/hr Lactated Ringer's (Ringers, Lactated) 500 mls @ 5 mls/hr IV ASDIRECTED [facility] Last Admin: 09/22/17 00:30 Dose: 5 mls/hr Lactated Ringer's (Ringers, Lactated) 500 mls @ 500 mls/hr IV ASDIRECTED [facility] Dextrose/Lactated Ringer's (Dextrose 5%-Lactated Ringers) 1,000 mls @ 80 mls/ hr IV ASDIRECTED [facility] Last Admin: 09/26/17 05:58 Dose: 80 mls/hr Magnesium Sulfate 2 gm/ Premix 50 mls @ 25 mls/hr IV Q6H [facility] Stop: 09/27/17 05:59 Last Admin: 09/27/17 03:51 Dose: 25 mls/hr Potassium Chloride 20 meq/ (Premix) 100 mls @ 50 mls/hr IV ONETIME ONE Stop: 09/24/17 09:59 Last Admin: 09/24/17 09:26 Dose: 50 mls/hr Sodium Chloride (Normal Saline) 90 mls @ 3 mls/sec IV ONETIME ONE Stop: 09/24/17 13:52 Last Admin: 09/24/17 15:34 Dose: Not Given Heparin Sodium (Porcine) 5,000 (units/ Sodium Chloride) 501 mls @ 0 mls/hr IV ASDIRECTED [facility] Last Admin: 09/29/17 00:49 Dose: 5 mls/hr Propofol (Diprivan 100 Ml) Confirm Administered Dose 100 mls @ as directed .ROUTE .STK-MED ONE Stop: 09/24/17 17:03 Last Admin: 09/24/17 19:03 Dose: Not Given Propofol (Diprivan 100 Ml) 100 mls @ 19.073 mls/hr IV TITRATE [facility]; Protocol Last Admin: 09/29/17 05:12 Dose: 70 mcg/kg/min, 33.377 mls/hr Potassium Chloride 40 meq/ (Premix) 100 mls @ 25 mls/hr IV ONETIME ONE Stop: 09/24/17 22:07 Last Admin: 09/25/17 07:21 Dose: Not Given Linezolid 600 mg/ Premix 300 mls @ 300 mls/hr IV Q12H [facility] Last Admin: 09/25/17 08:05 Dose: Not Given Potassium Chloride 20 meq/ (Premix) 100 mls @ 50 mls/hr IV Q2H [facility] Stop: 09/24/17 23:59 Last Admin: 09/24/17 23:03 Dose: 50 mls/hr Vancomycin HCl 2,000 mg/ (Dextrose/Water) 500 mls @ 250 mls/hr IV Q24H [facility] Last Admin: 09/24/17 21:06 Dose: 250 mls/hr Vancomycin HCl 1.25 gm/ Sodium (Chloride) 250 mls @ 166.667 mls/hr IV Q24H [facility] Potassium Chloride 20 meq/ (Premix) 100 mls @ 50 mls/hr IV Q2H [facility] Stop: 09/25/17 02:59 Last Admin: 09/25/17 07:21 Dose: Not Given Potassium Chloride 20 meq/ (Premix) 100 mls @ 50 mls/hr IV Q2H [facility] Stop: 09/25/17 05:29 Last Admin: 09/25/17 03:38 Dose: 50 mls/hr Potassium Chloride 20 meq/ (Premix) 100 mls @ 50 mls/hr IV Q2H [facility] Stop: 09/25/17 09:59 Last Admin: 09/25/17 05:46 Dose: 50 mls/hr Sodium Chloride (Normal Saline) 1,000 mls @ 500 mls/hr IV ASDIRECTED [facility] Last Admin: 09/24/17 01:30 Dose: 500 mls/hr Potassium Phosphate 20 mmole/ (Sodium Chloride) 256.6667 mls @ 85 mls/hr IV Q3H [facility] Stop: 09/25/17 16:29 Last Admin: 09/25/17 14:31 Dose: 85 mls/hr Vancomycin HCl 1.25 gm/ Sodium (Chloride) 250 mls @ 166.667 mls/hr IV Q12H [facility] Stop: 09/26/17 14:00 Last Admin: 09/26/17 10:24 Dose: 166.667 mls/hr Sodium Chloride (Normal Saline) 70 mls @ 3 mls/sec IV ONETIME ONE Stop: 09/25/17 11:20 Last Admin: 09/25/17 12:16 Dose: 3 mls/sec Potassium Chloride 20 meq/ (Premix) 0 mls @ 50 mls/hr IV Q2H [facility] Stop: 09/26/17 07:00 Potassium Chloride 20 meq/ (Premix) 100 mls @ 50 mls/hr IV Q2H [facility] Stop: 09/26/17 08:59 Last Admin: 09/26/17 07:29 Dose: 50 mls/hr Lidocaine HCl (Xylocaine-Mpf 1%) Confirm Administered Dose 2 mls @ as directed .ROUTE .STK-MED ONE Stop: 09/26/17 04:49 Last Admin: 09/26/17 04:55 Dose: 2 mls/hr Vancomycin HCl 1.5 gm/ Sodium (Chloride) 250 mls @ 166.667 mls/hr IV Q12H [facility] Last Admin: 09/28/17 11:22 Dose: 166.667 mls/hr Potassium Chloride 20 meq/Lidocaine HCl 2 ml/ Sodium Chloride 112 mls @ 50 mls/ hr IV Q2H [facility] Stop: 09/26/17 23:59 Last Admin: 09/26/17 22:09 Dose: 50 mls/hr Potassium Chloride (Kcl 20 Meq In Water 100 Ml) Confirm Administered Dose 200 mls @ as directed .ROUTE .STK-MED ONE Stop: 09/26/17 20:02 Last Admin: 09/26/17 20:10 Dose: Not Given Potassium Chloride 20 meq/Lidocaine HCl 2 ml/ Sodium Chloride 112 mls @ 50 mls/ hr IV Q2H [facility] Stop: 09/28/17 00:59 Last Admin: 09/27/17 23:01 Dose: 50 mls/hr Potassium Chloride (Kcl 20 Meq In Water 100 Ml) Confirm Administered Dose 200 mls @ as directed .ROUTE .STK-MED ONE Stop: 09/27/17 20:51 Last Admin: 09/27/17 20:56 Dose: Not Given Potassium Phosphate 20 mmole/ (Sodium Chloride) 256.6667 mls @ 85 mls/hr IV ONETIME ONE Stop: 09/29/17 11:31 Last Admin: 09/29/17 08:44 Dose: 85 mls/hr Potassium Phosphate 25 mmole/ (Sodium Chloride) 508.3333 mls @ 127 mls/hr IV ONETIME ONE Stop: 09/29/17 16:00 Last Admin: 09/29/17 11:56 Dose: 127 mls/hr Iopamidol (Isovue-370 (76%)) 75 ml IV . DIRECTED [facility] Stop: 09/24/17 23:00 Last Admin: 09/25/17 11:24 Dose: 75 ml Iopamidol (Isovue-370 (76%)) 75 ml IV . DIRECTED [facility] Stop: 09/25/17 14:00 Lidocaine HCl (Xylocaine-Mpf 1%) 5 ml INJECT ONETIME ONE Stop: 09/24/17 20:08 Last Admin: 09/24/17 20:31 Dose: 5 ml Lidocaine HCl (Xylocaine-Mpf 1%) 5 ml INJECT ONETIME ONE Stop: 09/25/17 01:31 Last Admin: 09/25/17 01:41 Dose: 5 ml Lidocaine HCl (Xylocaine-Mpf 1%) 2 ml INJECT ONETIME ONE Stop: 09/25/17 05:23 Last Admin: 09/25/17 05:46 Dose: 2 ml Lidocaine HCl (Xylocaine-Mpf 1%) 5 ml INJECT ONETIME ONE Stop: 09/26/17 00:29 Last Admin: 09/26/17 00:49 Dose: 5 ml Lidocaine/Epinephrine (Xylocaine 1% With Epinephrine 1:100,000) Confirm Administered Dose 50 ml .ROUTE .STK-MED ONE Stop: 09/23/17 06:44 Last Admin: 09/23/17 07:37 Dose: 17.5 ml Lorazepam (Ativan) 0.5 mg IVPUSH Q2H PRN PRN Reason: Anxiety Last Admin: 09/25/17 07:47 Dose: 0.5 mg Meropenem (Merrem) Confirm Administered Dose 500 mg .ROUTE .STK-MED ONE Stop: 09/21/17 07:04 Last Admin: 09/21/17 13:24 Dose: 500 mg Meropenem (Merrem) Confirm Administered Dose 500 mg .ROUTE .STK-MED ONE Stop: 09/23/17 06:44 Last Admin: 09/23/17 07:38 Dose: 500 mg Methylprednisolone Sodium Succinate (Solu-Medrol) 40 mg IVPUSH Q6H [facility] Last Admin: 09/28/17 12:32 Dose: 40 mg Methylprednisolone Sodium Succinate (Solu-Medrol) 40 mg IVPUSH Q12H [facility] Last Admin: 09/30/17 05:58 Dose: 40 mg Naloxone HCl (Narcan) 0.1 mg IVPUSH Q5M PRN PRN Reason: RESP RATE LESS THAN 6/MINUTE Naloxone HCl (Narcan) 0.4 mg IV ASDIRECTED PRN PRN Reason: ITCHING Neostigmine Methylsulfate (Neostigmine) Confirm Administered Dose 5 mg .ROUTE .STK-MED ONE Stop: 09/21/17 07:48 Ask About Scop Patch 0 each .XX ONETIME ONE Stop: 09/24/17 08:01 Last Admin: 09/24/17 10:18 Dose: Not Given Ondansetron HCl (Zofran) Confirm Administered Dose 4 mg .ROUTE .STK-MED ONE Stop: 09/21/17 07:48 Potassium Chloride (Klor-Con M20) 20 meq PO TIDMEALS [facility] Last Admin: 09/24/17 18:58 Dose: Not Given Propofol (Diprivan 20 Ml) Confirm Administered Dose 200 mg .ROUTE .STK-MED ONE Stop: 09/21/17 07:48 Propofol (Diprivan 20 Ml) Confirm Administered Dose 200 mg .ROUTE .STK-MED ONE Stop: 09/23/17 06:42 Propofol (Diprivan 20 Ml) Confirm Administered Dose 200 mg .ROUTE .STK-MED ONE Stop: 09/24/17 17:28 Last Admin: 09/24/17 19:34 Dose: Not Given Rocuronium Hecker (Zemuron) Confirm Administered Dose 50 mg .ROUTE .STK-MED ONE Stop: 09/21/17 07:48 Scopolamine (Transderm-Scop) 1.5 mg TOP Q72H [facility] Stop: 09/24/17 02:00 Last Admin: 09/21/17 08:37 Dose: 1.5 mg Scopolamine (Transderm-Scop) 1.5 mg TOP Q72H [facility] Stop: 09/27/17 08:59 Last Admin: 09/24/17 10:19 Dose: 1.5 mg Sodium Chloride (Saline Flush) 10 ml FLUSH ONETIME PRN PRN Reason: PER RADIOLOGY PROTOCOL Stop: 09/24/17 20:00 Last Admin: 09/25/17 11:23 Dose: 10 ml Sodium Chloride (Saline Flush) 10 ml FLUSH ONETIME PRN PRN Reason: PER RADIOLOGY PROTOCOL Stop: 09/25/17 14:00 Succinylcholine Chloride (Quelicin) Confirm Administered Dose 200 mg .ROUTE .STK -MED ONE Stop: 09/21/17 07:48 Succinylcholine Chloride (Quelicin) Confirm Administered Dose 200 mg .ROUTE .STK -MED ONE Stop: 09/24/17 17:28 Last Admin: 09/24/17 19:34 Dose: Not Given Tramadol HCl (Ultram) 50 mg PO Q6H [facility] Last Admin: 09/24/17 05:13 Dose: Not Given Vancomycin HCl (Vancomycin) 0 gm IV .PHARMACY TO DOSE [facility] Stop: 09/25/17 07:30 - Exam Quality Assessment: Supplemental Oxygen General: Alert, Oriented, Cooperative, No Acute Distress Neck: Supple Lungs: Clear to Auscultation, Normal Respiratory Effort Cardiovascular: Regular Rate, Regular Rhythm GI/Abdominal Exam: Soft, No Distention, Tender Extremities: No Pedal Edema Skin: Warm, Dry Wound/Incisions: Dressing Dry and Intact, Other (MILO with small amount of ss drainage ) Psy/Mental Status: Alert, Normal Affect Consult PN Assessment/Plan Procedures: Procedures ASSAY OF CREATININE (05/25/17) CONTRAST X-RAY EXAM OF COLON (05/15/17) CT ABD & PELV W/CONTRAST (05/25/17) DIAGNOSTIC COLONOSCOPY (05/15/17) ROUTINE VENIPUNCTURE (05/25/17) SCR MAMMO BI INCL CAD (04/03/17) Problem List Initiated/Reviewed/Updated: Yes My Orders Last 24 Hours: My Active Orders 09/29/17 15:43 Dimethicone/Zinc Oxide [Rash Relief-Zinc Oxide Roslyn] 1 gm TOP ASDIRECTED PRN 09/29/17 19:38 Sodium Chloride 0.9% [Normal Saline] 500 ml IV ASDIRECTED 09/29/17 21:00 Metoprolol Tartrate [Lopressor] 25 mg PO BID 09/30/17 09:00 Hydrochlorothiazide 25 mg PO DAILY Venlafaxine [Effexor XR] 75 mg PO DAILY 09/30/17 09:37 Arterial Line Discontinue [OM.PC] Routine Plan: ASSESSMENT AND RECOMMENDATIONS ACUTE HYPOXIC RESPIRATORY FAILURE - evidence of bilateral pneumonia on chest x- ray and CT scan, also probable component of fluid overload. Volume status currently seems to be appropriate. Patient has been stable since extubation yesterday. -Nebulized albuterol and duo nebs -Expanded IV antibiotic coverage with Zosyn, levofloxacin, reassess tomorrow -Continue fluconazole for now -Blood and sputum cultures pending -Stress ulcer prophylaxis with Protonix -DVT prophylaxis; SCUDs STATUS POST SIGMOIDECTOMY AND COLOPROCTOSTOMY SURGERY -Postoperative care per Dr. Genaro Abbott MD
[2017-09-30] MEDS: Levofloxacin/Dextrose 5%-Water 750 MG in Premix Bag 1 BAG IV SCH (13:49)
[2017-09-30] MEDS: Pantoprazole 40 MG Vial IV SCH (17:36)
[2017-10-01] MEDS: Piperacillin/Tazobactam/Dext 3.375 GM in Premix Bag 1 BAG IV SCH ×2 (00:57→05:47)
[2017-10-01] MEDS: Albuterol/Ipratropium 3.0-0.5 MG/3 ML Neb Soln NEB SCH ×4 (06:59→21:49)
--- NOTE | 2017-10-01 08:47 | PN ---
DATE OF SERVICE: 09/29/2017 The patient has been afebrile with stable vital signs. She looks like she is probably ready for extubation today based on weaning parameters. The MILO drain in the area of the colorectal anastomosis is still brown, but wagon winder, and relatively draining small amounts. She did move her bowels already twice a day, and this does not seem to be worsening the situation. At this point, she remains clinically fairly stable. No signs of an infectious complication per say being normothermic with normal white count, not tachycardic, and continuing to diurese satisfactorily. Given this, I think we will not approach the probable leak at the colorectal anastomosis as it may be sealing up spontaneously. A Gastrografin enema would likely make that worse at this point. As long she is clinically stable, we will watch this, and a central line will be placed later today and TPN started. This was reviewed with the patient's family, and they are aware of the leak and possible need for additional intervention over the next few days. Gary Lam MD Job #: [id number]
--- NOTE | 2017-10-01 08:50 | PN ---
DATE OF SERVICE: 09/30/2017 The patient has remained afebrile with stable vital signs. Other than her white count bumping up a little bit at 14,000, there are no signs of significant infectious complications. At this point she is continuing to diurese nicely, and has been normothermic and not tachycardic. The MILO drain is actually quite sales review clerk, only a very vague freitas color at this point. The Gram stain did show mixed brian confirming we are likely dealing with some degree of a leak with possible abscess that had accumulated and subsequently drained. Anyway, as long as she is clinically doing well, we will not work this up further by getting a gastrografin enema. It might confirm a leak, but also might restart one as well. As long as she is doing well clinically, we will watch this for now. She is on the TPN. The potassium was somewhat low this morning, and we will supplement that with some K-Phos. Otherwise, continue the TPN. I think we will remove the NG tube, but keep her on just some ice chips and sips of water with medications to minimize the amount of GI tract activity with probable healing leak at the colorectal anastomosis. Gary Lam MD Job #: [id number]
[2017-10-01] MEDS ORDERED: LORazepam 0.5 MG Tab PO PRN (09:01)
[2017-10-01] MEDS: Fluconazole 100 MG Tab PO SCH (09:03)
[2017-10-01] MEDS: Venlafaxine 75 MG Cap.ER PO SCH (09:04)
[2017-10-01] MEDS: Albumin 25% 50 ML IV SCH ×2 (09:04→11:14)
[2017-10-01] MEDS: Hydrochlorothiazide 25 MG Tab PO SCH (09:05)
[2017-10-01] MEDS: Metoprolol Tartrate 25 MG Tab PO SCH ×2 (09:06→21:50)
--- NOTE | 2017-10-01 09:06 | PCM.CONSN ---
- General Info Date of Service: 10/01/17 Functional Status: Reports: Pain Controlled, Tolerating Diet - Review of Systems General: Denies: Fever Gastrointestinal: Reports: Abdominal Pain (mild) Systems Review Comment:: No acute events overnight. Supplemental oxygen requirements have been decreasing. She has not had any fevers. Abdominal pain is mild at most. She is now been able to get out of bed with minimal assistance. Tolerating TPN. - Patient Data Vitals - Most Recent: Last Vital Signs Temp 37.0 C 10/01/17 08:00 Pulse 60 10/01/17 08:00 Resp 22 H 10/01/17 08:00 BP 95/39 L 10/01/17 08:00 Pulse Ox 91 L 10/01/17 08:00 Weight - Most Recent: 77.836 kg I&O - Last 24 Hours: Intake & Output 09/30/17 10/01/17 10/01/17 22:59 06:59 14:59 Intake Total 1652 880 Output Total 2180 965 Balance -528 -85 Lab Results Last 24 Hours: Laboratory Results - last 24 hr 10/01/17 10/01/17 Range/Units 04:15 04:15 WBC 16.3 H (4.5-11.0) K/uL RBC 3.76 (3.30-5.50) M/uL Hgb 11.5 L (12.0-15.0) g/dL Hct 33.2 L (36.0-48.0) % MCV 88 (80-98) fL MCH 31 (27-31) pg MCHC 35 (32-36) % Plt Count 220 (150-400) K/uL Sodium 140 (140-148) mmol/L Potassium 3.7 (3.6-5.2) mmol/L Chloride 106 (100-108) mmol/L Carbon Dioxide 26 (21-32) mmol/L Anion Gap 7.8 (5.0-14.0) mmol/L BUN 22 H (7-18) mg/dL Creatinine 0.5 L (0.6-1.0) mg/dL Est Cr Clr Drug Dosing 87.95 mL/min Estimated GFR (MDRD) > 60 (>60) Glucose 124 H (74-106) mg/dL Calcium 7.9 L (8.5-10.1) mg/dL Phosphorus 4.0 (2.5-4.9) mg/dL Magnesium 2.0 (1.8-2.4) mg/dL Total Bilirubin 0.4 (0.2-1.0) mg/dL AST 36 (15-37) U/L ALT 38 (12-78) U/L Alkaline Phosphatase 73 (46-116) U/L NT-Pro-B Natriuret Pep 292 H (5-125) pg/mL Total Protein 5.5 L (6.4-8.2) g/dL Albumin 1.7 L (3.4-5.0) g/dL Globulin 3.8 H (2.3-3.5) g/dL Albumin/Globulin Ratio 0.5 L (1.2-2.2) Andrew Results Last 24 Hours: Microbiology 09/29/17 08:10 Gram Stain - Final Abdominal Fluid - Drainage Body Fluid Culture - Final YEAST Med Orders - Current: Current Medications Albuterol (Proventil Neb Soln) 2.5 mg NEB Q4H PRN PRN Reason: Dyspnea Albuterol/Ipratropium (Duoneb 3.0-0.5 Mg/3 Ml) 3 ml NEB QIDRT [facility] Last Admin: 10/01/17 06:59 Dose: 3 ml Alprazolam (Xanax) 0.25 mg PO BEDTIME PRN PRN Reason: ANXIETY Last Admin: 09/29/17 21:20 Dose: 0.25 mg Dimethicone/Zinc Oxide (Rash Relief-Zinc Oxide [place]) 1 gm TOP ASDIRECTED PRN PRN Reason: Rash Last Admin: 09/29/17 16:30 Dose: 1 spray Fluconazole (Diflucan) 200 mg PO DAILY [facility] Last Admin: 10/01/17 09:03 Dose: 200 mg Hydrochlorothiazide (Hydrochlorothiazide) 25 mg PO DAILY [facility] Last Admin: 09/30/17 09:05 Dose: 25 mg Hydromorphone HCl (Dilaudid) 0.5 mg IVPUSH Q2H PRN PRN Reason: Pain Last Admin: 09/29/17 08:34 Dose: 0.5 mg Multivitamins/Minerals 10 ml/Chromium/Copper/Manganese/Seleni/Zn 1 ml/ Amino Ac/ Electrol/Dextrose/Calcium 1,011 mls @ 67 mls/hr IV .BY DURATION [facility] Last Admin: 09/30/17 21:23 Dose: 67 mls/hr Amino Ac/Electrol/Dextrose/Calcium (Clinimix E 5/15) 1,000 mls @ 67 mls/hr IV .BY DURATION [facility] Last Admin: 09/30/17 07:25 Dose: 67 mls/hr Albumin Human (Flexbumin 25%) 50 mls @ 25 mls/hr IV Q24H [facility] Stop: 10/03/17 10:59 Last Admin: 10/01/17 09:04 Dose: 25 mls/hr Albumin Human (Flexbumin 25%) 50 mls @ 25 mls/hr IV Q24H [facility] Stop: 10/03/17 12:59 Potassium Phosphate 30 mmole/ (Sodium Chloride) 160 mls @ 35 mls/hr IV ONETIME ONE Stop: 10/01/17 14:34 Metoprolol Tartrate (Lopressor) 25 mg PO BID [facility] Last Admin: 09/30/17 20:24 Dose: 25 mg Ondansetron HCl (Zofran) 4 mg IV Q4H PRN PRN Reason: N/V Last Admin: 09/22/17 20:24 Dose: 4 mg Venlafaxine HCl (Effexor Xr) 75 mg PO DAILY [facility] Last Admin: 10/01/17 09:04 Dose: 75 mg Discontinued Medications Acetaminophen (Tylenol Extra Strength) 1,000 mg PO ONETIME ONE Stop: 09/21/17 08:01 Last Admin: 09/21/17 08:14 Dose: 1,000 mg Acetaminophen (Tylenol Extra Strength) 1,000 mg PO Q6H [facility] Last Admin: 09/25/17 05:40 Dose: Not Given Albuterol/Ipratropium (Duoneb 3.0-0.5 Mg/3 Ml) 3 ml NEB ONETIME ONE Stop: 09/23/17 23:59 Last Admin: 09/24/17 00:10 Dose: Not Given Albuterol/Ipratropium (Duoneb 3.0-0.5 Mg/3 Ml) 3 ml NEB Q4H [facility] Last Admin: 09/24/17 11:04 Dose: 3 ml Alvimopan (Entereg) 12 mg PO ONETIME ONE Stop: 09/21/17 08:01 Last Admin: 09/21/17 08:14 Dose: 12 mg Alvimopan (Entereg) 12 mg PO BID [facility] Stop: 09/28/17 09:01 Last Admin: 09/23/17 21:11 Dose: 12 mg Bisacodyl (Dulcolax) 10 mg PO BID [facility] Last Admin: 09/24/17 23:51 Dose: Not Given Bisacodyl (Dulcolax) 10 mg RECTAL ONETIME ONE Stop: 09/23/17 10:01 Last Admin: 09/23/17 10:11 Dose: 10 mg Bisacodyl (Dulcolax) 10 mg RECTAL ONETIME ONE Stop: 09/24/17 09:01 Last Admin: 09/24/17 10:45 Dose: Not Given Bupivacaine HCl (Marcaine 0.5%) Confirm Administered Dose 50 ml .ROUTE .STK-MED ONE Stop: 09/23/17 06:44 Last Admin: 09/23/17 07:37 Dose: 17.5 ml Ropivacaine 36 ml/Dexamethasone 8 mg/Epinephrine HCl 0.4 mg/ Sodium Chloride 41.6 ml 0 ml NERVRT ASDIRECTED [facility] Last Admin: 09/23/17 07:30 Dose: 80 syringe Dexamethasone (Dexamethasone) Confirm Administered Dose 4 mg .ROUTE .STK-MED ONE Stop: 09/21/17 07:48 Diphenhydramine HCl (Benadryl) 25 - 50 mg IVPUSH Q6H PRN PRN Reason: ITCHING Fentanyl (Sublimaze) Confirm Administered Dose 100 mcg .ROUTE .STK-MED ONE Stop: 09/21/17 07:51 Fentanyl (Sublimaze) Confirm Administered Dose 250 mcg .ROUTE .STK-MED ONE Stop: 09/21/17 12:23 Fentanyl Citrate (Fentanyl) Confirm Administered Dose 500 mcg .ROUTE .STK-MED ONE Stop: 09/21/17 07:52 Furosemide (Lasix) 20 mg IVPUSH STAT ONE Stop: 09/23/17 07:01 Last Admin: 09/23/17 07:05 Dose: 20 mg Furosemide (Lasix) 20 mg IVPUSH BID@1000,1700 [facility] Stop: 09/23/17 17:01 Last Admin: 09/23/17 17:08 Dose: 20 mg Furosemide (Lasix) 40 mg IVPUSH ONETIME ONE Stop: 09/23/17 21:45 Last Admin: 09/23/17 21:54 Dose: 40 mg Furosemide (Lasix) 20 mg IVPUSH ONETIME ONE Stop: 09/24/17 08:01 Last Admin: 09/24/17 09:23 Dose: 20 mg Furosemide (Lasix) 40 mg IVPUSH NOW ONE Stop: 09/24/17 18:46 Last Admin: 09/24/17 20:02 Dose: 40 mg Furosemide (Lasix) 20 mg IV ONETIME ONE Stop: 09/25/17 10:51 Last Admin: 09/25/17 12:03 Dose: 20 mg Furosemide (Lasix) 20 mg IVPUSH Q12H [facility] Last Admin: 09/29/17 21:05 Dose: 20 mg Glycopyrrolate (Robinul) Confirm Administered Dose 1 mg .ROUTE .STK-MED ONE Stop: 09/21/17 07:48 Haloperidol Lactate (Haldol) 2 mg IVPUSH ONETIME ONE Stop: 09/28/17 10:01 Last Admin: 09/28/17 10:01 Dose: 2 mg Heparin Sodium (Porcine) (Heparin Sodium) Confirm Administered Dose 5,000 units .ROUTE .STK-MED ONE Stop: 09/24/17 17:08 Last Admin: 09/24/17 19:34 Dose: Not Given Heparin Sodium (Porcine) (Heparin Sodium) Confirm Administered Dose 5,000 units .ROUTE .STK-MED ONE Stop: 09/29/17 00:33 Last Admin: 09/29/17 00:50 Dose: Not Given Hydroxyzine HCl (Vistaril) 50 mg IM ONETIME ONE Stop: 09/21/17 14:17 Last Admin: 09/21/17 14:20 Dose: 50 mg Hydroxyzine HCl (Vistaril) 50 - 100 mg IM Q4H PRN PRN Reason: PAIN Last Admin: 09/30/17 00:19 Dose: 50 mg Dextrose/Lactated Ringer's (Dextrose 5%-Lactated Ringers) 1,000 mls @ 100 mls/ hr IV ASDIRECTED [facility] Last Admin: 09/21/17 09:51 Dose: 100 mls/hr Cefoxitin Sodium 2 gm/ Sodium (Chloride) 50 mls @ 100 mls/hr IV ONETIME ONE Stop: 09/21/17 08:29 Last Admin: 09/21/17 20:11 Dose: Not Given Sodium Chloride (Normal Saline) Confirm Administered Dose 10 mls @ as directed .ROUTE .STK-MED ONE Stop: 09/21/17 07:51 Fentanyl 2,500 mcg/ Sodium (Chloride) 250 mls @ 0 mls/hr EPIDUR TITRATE [facility]; Protocol Last Admin: 09/23/17 13:05 Dose: 10 mls/hr, 10 mls/hr Dextrose/Lactated Ringer's (Dextrose 5%-Lactated Ringers) 1,000 mls @ 150 mls/ hr IV ASDIRECTED [facility] Last Admin: 09/23/17 03:10 Dose: 150 mls/hr Cefoxitin Sodium 2 gm/ Sodium (Chloride) 50 mls @ 100 mls/hr IV Q6H [facility] Stop: 09/22/17 17:29 Last Admin: 09/22/17 17:34 Dose: 100 mls/hr Lactated Ringer's (Ringers, Lactated) 500 mls @ 5 mls/hr IV ASDIRECTED [facility] Last Admin: 09/22/17 00:30 Dose: 5 mls/hr Lactated Ringer's (Ringers, Lactated) 500 mls @ 500 mls/hr IV ASDIRECTED [facility] Dextrose/Lactated Ringer's (Dextrose 5%-Lactated Ringers) 1,000 mls @ 80 mls/ hr IV ASDIRECTED [facility] Last Admin: 09/26/17 05:58 Dose: 80 mls/hr Magnesium Sulfate 2 gm/ Premix 50 mls @ 25 mls/hr IV Q6H [facility] Stop: 09/27/17 05:59 Last Admin: 09/27/17 03:51 Dose: 25 mls/hr Potassium Chloride 20 meq/ (Premix) 100 mls @ 50 mls/hr IV ONETIME ONE Stop: 09/24/17 09:59 Last Admin: 09/24/17 09:26 Dose: 50 mls/hr Piperacillin/Tazobactam/ (Dextrose 3.375 gm/ Premix) 50 mls @ 100 mls/hr IV Q6H [facility] Last Admin: 10/01/17 05:47 Dose: 100 mls/hr Levofloxacin/Dextrose 750 mg/ (Premix) 150 mls @ 100 mls/hr IV Q24H [facility] Last Admin: 09/30/17 13:49 Dose: 100 mls/hr Sodium Chloride (Normal Saline) 90 mls @ 3 mls/sec IV ONETIME ONE Stop: 09/24/17 13:52 Last Admin: 09/24/17 15:34 Dose: Not Given Heparin Sodium (Porcine) 5,000 (units/ Sodium Chloride) 501 mls @ 0 mls/hr IV ASDIRECTED [facility] Last Admin: 09/29/17 00:49 Dose: 5 mls/hr Propofol (Diprivan 100 Ml) Confirm Administered Dose 100 mls @ as directed .ROUTE .STK-MED ONE Stop: 09/24/17 17:03 Last Admin: 09/24/17 19:03 Dose: Not Given Propofol (Diprivan 100 Ml) 100 mls @ 19.073 mls/hr IV TITRATE [facility]; Protocol Last Admin: 09/29/17 05:12 Dose: 70 mcg/kg/min, 33.377 mls/hr Potassium Chloride 40 meq/ (Premix) 100 mls @ 25 mls/hr IV ONETIME ONE Stop: 09/24/17 22:07 Last Admin: 09/25/17 07:21 Dose: Not Given Linezolid 600 mg/ Premix 300 mls @ 300 mls/hr IV Q12H [facility] Last Admin: 09/25/17 08:05 Dose: Not Given Potassium Chloride 20 meq/ (Premix) 100 mls @ 50 mls/hr IV Q2H [facility] Stop: 09/24/17 23:59 Last Admin: 09/24/17 23:03 Dose: 50 mls/hr Vancomycin HCl 2,000 mg/ (Dextrose/Water) 500 mls @ 250 mls/hr IV Q24H [facility] Last Admin: 09/24/17 21:06 Dose: 250 mls/hr Vancomycin HCl 1.25 gm/ Sodium (Chloride) 250 mls @ 166.667 mls/hr IV Q24H [facility] Potassium Chloride 20 meq/ (Premix) 100 mls @ 50 mls/hr IV Q2H [facility] Stop: 09/25/17 02:59 Last Admin: 09/25/17 07:21 Dose: Not Given Potassium Chloride 20 meq/ (Premix) 100 mls @ 50 mls/hr IV Q2H [facility] Stop: 09/25/17 05:29 Last Admin: 09/25/17 03:38 Dose: 50 mls/hr Potassium Chloride 20 meq/ (Premix) 100 mls @ 50 mls/hr IV Q2H [facility] Stop: 09/25/17 09:59 Last Admin: 09/25/17 05:46 Dose: 50 mls/hr Sodium Chloride (Normal Saline) 1,000 mls @ 500 mls/hr IV ASDIRECTED [facility] Last Admin: 09/24/17 01:30 Dose: 500 mls/hr Potassium Phosphate 20 mmole/ (Sodium Chloride) 256.6667 mls @ 85 mls/hr IV Q3H [facility] Stop: 09/25/17 16:29 Last Admin: 09/25/17 14:31 Dose: 85 mls/hr Fluconazole/Sodium Chloride (400 mg/ Premix) 200 mls @ 100 mls/hr IV Q24H [facility] Last Admin: 09/30/17 08:11 Dose: 100 mls/hr Vancomycin HCl 1.25 gm/ Sodium (Chloride) 250 mls @ 166.667 mls/hr IV Q12H [facility] Stop: 09/26/17 14:00 Last Admin: 09/26/17 10:24 Dose: 166.667 mls/hr Sodium Chloride (Normal Saline) 70 mls @ 3 mls/sec IV ONETIME ONE Stop: 09/25/17 11:20 Last Admin: 09/25/17 12:16 Dose: 3 mls/sec Potassium Chloride 20 meq/ (Premix) 0 mls @ 50 mls/hr IV Q2H [facility] Stop: 09/26/17 07:00 Potassium Chloride 20 meq/ (Premix) 100 mls @ 50 mls/hr IV Q2H [facility] Stop: 09/26/17 08:59 Last Admin: 09/26/17 07:29 Dose: 50 mls/hr Lidocaine HCl (Xylocaine-Mpf 1%) Confirm Administered Dose 2 mls @ as directed .ROUTE .STK-MED ONE Stop: 09/26/17 04:49 Last Admin: 09/26/17 04:55 Dose: 2 mls/hr Vancomycin HCl 1.5 gm/ Sodium (Chloride) 250 mls @ 166.667 mls/hr IV Q12H [facility] Last Admin: 09/28/17 11:22 Dose: 166.667 mls/hr Potassium Chloride 20 meq/Lidocaine HCl 2 ml/ Sodium Chloride 112 mls @ 50 mls/ hr IV Q2H [facility] Stop: 09/26/17 23:59 Last Admin: 09/26/17 22:09 Dose: 50 mls/hr Potassium Chloride (Kcl 20 Meq In Water 100 Ml) Confirm Administered Dose 200 mls @ as directed .ROUTE .STK-MED ONE Stop: 09/26/17 20:02 Last Admin: 09/26/17 20:10 Dose: Not Given Potassium Chloride 20 meq/Lidocaine HCl 2 ml/ Sodium Chloride 112 mls @ 50 mls/ hr IV Q2H [facility] Stop: 09/28/17 00:59 Last Admin: 09/27/17 23:01 Dose: 50 mls/hr Potassium Chloride (Kcl 20 Meq In Water 100 Ml) Confirm Administered Dose 200 mls @ as directed .ROUTE .STK-[facility] ONE Stop: 09/27/17 20:51 Last Admin: 09/27/17 20:56 Dose: Not Given Potassium Phosphate 20 mmole/ (Sodium Chloride) 256.6667 mls @ 85 mls/hr IV ONETIME ONE Stop: 09/29/17 11:31 Last Admin: 09/29/17 08:44 Dose: 85 mls/hr Potassium Phosphate 25 mmole/ (Sodium Chloride) 508.3333 mls @ 127 mls/hr IV ONETIME ONE Stop: 09/29/17 16:00 Last Admin: 09/29/17 11:56 Dose: 127 mls/hr Sodium Chloride (Normal Saline) 500 mls @ 15 mls/hr IV ASDIRECTED ONE Stop: 10/01/17 04:57 Last Admin: 09/29/17 21:05 Dose: 15 mls/hr Potassium Phosphate 22.5 mmole (/ Sodium Chloride) 107.5 mls @ 31 mls/hr IV Q4H [facility] Stop: 09/30/17 16:59 Last Admin: 09/30/17 13:46 Dose: 31 mls/hr Ibuprofen (Motrin) 400 mg PO Q6H [facility] Last Admin: 09/25/17 05:40 Dose: Not Given Iopamidol (Isovue-370 (76%)) 75 ml IV . DIRECTED [facility] Stop: 09/24/17 23:00 Last Admin: 09/25/17 11:24 Dose: 75 ml Iopamidol (Isovue-370 (76%)) 75 ml IV . DIRECTED [facility] Stop: 09/25/17 14:00 Lidocaine HCl (Xylocaine-Mpf 1%) 5 ml INJECT ONETIME ONE Stop: 09/24/17 20:08 Last Admin: 09/24/17 20:31 Dose: 5 ml Lidocaine HCl (Xylocaine-Mpf 1%) 5 ml INJECT ONETIME ONE Stop: 09/25/17 01:31 Last Admin: 09/25/17 01:41 Dose: 5 ml Lidocaine HCl (Xylocaine-Mpf 1%) 2 ml INJECT ONETIME ONE Stop: 09/25/17 05:23 Last Admin: 09/25/17 05:46 Dose: 2 ml Lidocaine HCl (Xylocaine-Mpf 1%) 5 ml INJECT ONETIME ONE Stop: 09/26/17 00:29 Last Admin: 09/26/17 00:49 Dose: 5 ml Lidocaine/Epinephrine (Xylocaine 1% With Epinephrine 1:100,000) Confirm Administered Dose 50 ml .ROUTE .STK-MED ONE Stop: 09/23/17 06:44 Last Admin: 09/23/17 07:37 Dose: 17.5 ml Lorazepam (Ativan) 0.5 mg IVPUSH Q2H PRN PRN Reason: Anxiety Last Admin: 09/25/17 07:47 Dose: 0.5 mg Lorazepam (Ativan) 0.5 mg IVPUSH Q1H PRN PRN Reason: Anxiety Last Admin: 09/29/17 07:27 Dose: 0.5 mg Meropenem (Merrem) Confirm Administered Dose 500 mg .ROUTE .STK-MED ONE Stop: 09/21/17 07:04 Last Admin: 09/21/17 13:24 Dose: 500 mg Meropenem (Merrem) Confirm Administered Dose 500 mg .ROUTE .STK-MED ONE Stop: 09/23/17 06:44 Last Admin: 09/23/17 07:38 Dose: 500 mg Methylprednisolone Sodium Succinate (Solu-Medrol) 40 mg IVPUSH Q6H [facility] Last Admin: 09/28/17 12:32 Dose: 40 mg Methylprednisolone Sodium Succinate (Solu-Medrol) 40 mg IVPUSH Q12H [facility] Last Admin: 09/30/17 05:58 Dose: 40 mg Metoprolol Succinate (Toprol Xl) 50 mg PO DAILY [facility] Last Admin: 09/24/17 09:32 Dose: 50 mg Naloxone HCl (Narcan) 0.1 mg IVPUSH Q5M PRN PRN Reason: RESP RATE LESS THAN 6/MINUTE Naloxone HCl (Narcan) 0.4 mg IV ASDIRECTED PRN PRN Reason: ITCHING Neostigmine Methylsulfate (Neostigmine) Confirm Administered Dose 5 mg .ROUTE .STK-MED ONE Stop: 09/21/17 07:48 Ask About Scop Patch 0 each .XX ONETIME ONE Stop: 09/24/17 08:01 Last Admin: 09/24/17 10:18 Dose: Not Given Ondansetron HCl (Zofran) Confirm Administered Dose 4 mg .ROUTE .STK-MED ONE Stop: 09/21/17 07:48 Pantoprazole Sodium (Protonix Iv) 40 mg IV Q24H [facility] Last Admin: 09/30/17 17:36 Dose: 40 mg Potassium Chloride (Klor-Con M20) 20 meq PO TIDMEALS [facility] Last Admin: 09/24/17 18:58 Dose: Not Given Propofol (Diprivan 20 Ml) Confirm Administered Dose 200 mg .ROUTE .STK-MED ONE Stop: 09/21/17 07:48 Propofol (Diprivan 20 Ml) Confirm Administered Dose 200 mg .ROUTE .STK-MED ONE Stop: 09/23/17 06:42 Propofol (Diprivan 20 Ml) Confirm Administered Dose 200 mg .ROUTE .STK-MED ONE Stop: 09/24/17 17:28 Last Admin: 09/24/17 19:34 Dose: Not Given Rocuronium [place] (Zemuron) Confirm Administered Dose 50 mg .ROUTE .STK-MED ONE Stop: 09/21/17 07:48 Scopolamine (Transderm-Scop) 1.5 mg TOP Q72H [facility] Stop: 09/24/17 02:00 Last Admin: 09/21/17 08:37 Dose: 1.5 mg Scopolamine (Transderm-Scop) 1.5 mg TOP Q72H [facility] Stop: 09/27/17 08:59 Last Admin: 09/24/17 10:19 Dose: 1.5 mg Senna/Docusate Sodium (Senna Plus) 2 tab PO DAILY [facility] Last Admin: 09/24/17 09:29 Dose: 2 tab Sodium Chloride (Saline Flush) 10 ml FLUSH ONETIME PRN PRN Reason: PER RADIOLOGY PROTOCOL Stop: 09/24/17 20:00 Last Admin: 09/25/17 11:23 Dose: 10 ml Sodium Chloride (Saline Flush) 10 ml FLUSH ONETIME PRN PRN Reason: PER RADIOLOGY PROTOCOL Stop: 09/25/17 14:00 Succinylcholine Chloride (Quelicin) Confirm Administered Dose 200 mg .ROUTE .STK -MED ONE Stop: 09/21/17 07:48 Succinylcholine Chloride (Quelicin) Confirm Administered Dose 200 mg .ROUTE .STK -MED ONE Stop: 09/24/17 17:28 Last Admin: 09/24/17 19:34 Dose: Not Given Tramadol HCl (Ultram) 50 mg PO Q6H [facility] Last Admin: 09/24/17 05:13 Dose: Not Given Vancomycin HCl (Vancomycin) 0 gm IV .PHARMACY TO DOSE [facility] Stop: 09/25/17 07:30 Venlafaxine HCl (Effexor Xr) 75 mg PO DAILY [facility] Last Admin: 09/24/17 09:29 Dose: 75 mg - Exam Quality Assessment: Supplemental Oxygen General: Alert, Oriented, Cooperative, No Acute Distress Neck: Supple Lungs: Clear to Auscultation, Normal Respiratory Effort Cardiovascular: Regular Rate, Regular Rhythm GI/Abdominal Exam: Soft, No Distention, Tender Extremities: No Pedal Edema Skin: Warm, Dry Wound/Incisions: Dressing Dry and Intact Psy/Mental Status: Alert, Normal Affect Consult PN Assessment/Plan Procedures: Procedures ASSAY OF CREATININE (05/25/17) CONTRAST X-RAY EXAM OF COLON (05/15/17) CT ABD & PELV W/CONTRAST (05/25/17) DIAGNOSTIC COLONOSCOPY (05/15/17) ROUTINE VENIPUNCTURE (05/25/17) SCR MAMMO BI INCL CAD (04/03/17) Problem List Initiated/Reviewed/Updated: Yes My Orders Last 24 Hours: My Active Orders 09/30/17 09:00 Hydrochlorothiazide 25 mg PO DAILY Venlafaxine [Effexor XR] 75 mg PO DAILY 09/30/17 09:37 Arterial Line Discontinue [OM.PC] Routine 10/01/17 09:01 LORazepam [Ativan] 0.5 mg PO Q4H PRN 10/01/17 09:03 Discontinue Telemetry Monitoring [Cardiac Monitoring Discontinue] [RC] Click to Edit 10/01/17 09:04 Transfer Patient (Change bed) [ADT] Routine DC Judge Catheter [Urinary Catheter Removal] [RC] Per Unit Routine 10/01/17 14:00 Levofloxacin [Levaquin] 250 mg PO Q24H Levofloxacin [Levaquin] 500 mg PO Q24H 10/02/17 07:30 Pantoprazole [ProTONIX] 40 mg PO ACBREAKFAST Plan: ASSESSMENT AND RECOMMENDATIONS ACUTE HYPOXIC RESPIRATORY FAILURE - evidence of bilateral pneumonia on chest x- ray and CT scan, also probable component of fluid overload. Volume status currently seems to be appropriate. Respiratory status steadily improving. -Nebulized albuterol and duo nebs -Discontinue Zosyn -Continue levofloxacin, transition to oral, likely can discontinue and a couple of days -Continue fluconazole for now -Blood and sputum cultures pending -Stress ulcer prophylaxis with PPI -DVT prophylaxis; SCUDs STATUS POST SIGMOIDECTOMY AND COLOPROCTOSTOMY SURGERY -Postoperative care per Dr. Lam Medical issues have essentially resolved at this point. Patient is stable for transfer out of the intensive care unit. Internal medicine will sign off at this time. Rod Abbott MD
[2017-10-01] MEDS ORDERED: Potassium Phosphates 30 MMOLE in Sodium Chloride 0.9% 150 ML IV ONE (10:00)
--- NOTE | 2017-10-01 10:09 | CR ---
Chest 1V Frontal INDICATION: Intubation COMPARISON: 09/28/2017 FINDINGS: AP portable chest. Heart size normal. ET tube remains mid trachea in good position. NG tube remains in place with tip be yond the lower edge of the film. Patchy infiltrates in both lungs unchanged.
--- NOTE | 2017-10-01 10:23 | CR ---
Chest 1V Frontal INDICATION: Intubation COMPARISON: 09/29/2017 FINDINGS: AP portable chest. Heart size normal. ET tube mid trachea in good position. NG tube remains in place with tip below the lower edge of the film. Patchy infiltrates in both lungs again noted with slight increase in the right upper lobe.
--- NOTE | 2017-10-01 10:59 | PN ---
DATE OF SERVICE: 10/01/2017 HISTORY: The patient has had a T-max of 98. Vital signs are otherwise stable. She is fairly alert this morning. Her respiratory status appears to be fairly good. O2 saturations on 1 liter per nasal cannula are 92%. She did have diuresis of 85 mL measured, which would translate to somewhere in the range of 800 to 1000 mL of total net diuresis. She feels hungry. Her MILO drain is now clearly serous, and it would appear that the leak probably has occluded. I think, with this, we will cautiously begin a full-liquid diet. Otherwise, continue the TPN. White count is up somewhat at 16,000, that is fairly nonspecific and would simply watch the situation in that regard. The cultures from the drain are still pending, and whether or not this will need to be treated at this point is somewhat questionable, given the clearance of the drainage. Otherwise, her albumin is low. We will give her some supplemental albumin over the next 2 or 3 days, go to a full liquid diet, continue TPN. Her potassium is marginally low. We will give her some additional K- Phos today and recheck some labs in the morning. She is being seen by Physical Therapy daily and at this point for postop rehab. Gary Lam MD Job #: [id number]
--- NOTE | 2017-10-01 11:12 | CR ---
Chest 1V Frontal INDICATION: Intubation COMPARISON: 09/27/2017 FINDINGS: AP portable chest. ET tube remains in good position mid trachea. NG tube remains in place with tip below the bottom edge of the image. No change in bilateral patchy infiltrates. Heart size normal.
--- NOTE | 2017-10-01 11:16 | CR ---
Chest 1V Frontal INDICATION: Intubation COMPARISON: Prior exams FINDINGS: AP portable chest. ET tube is been placed with tip in the mid trachea in good position. NG tube extends below the lower edge of the image in the abdomen. Heart size normal. Focal infiltrate or atelectasis in the right midlung. Mild vascular congestion. No definite pleural e ffusions.
--- NOTE | 2017-10-01 11:18 | CR ---
Chest 1V Frontal INDICATION: central line placement COMPARISON: Prior exams FINDINGS: AP portable chest. Left subclavian central line remains in place with tip in the right atrium. No pneumothorax. NG tube remains in place. Heart size normal. Bilateral pulmonary infiltrates unchanged.
[2017-10-01] MEDS: 1: AA 5%/Calcium/D15W/Lytes 1,000 ML with MVI, Adult with Vitamin K 10 ML, Chromium/Copp IV SCH ×3 (12:36)
[2017-10-01] MEDS: Levofloxacin 250 MG Tab PO SCH (13:19)
[2017-10-01] MEDS: Levofloxacin 500 MG Tab PO SCH (13:20)
[2017-10-02] MEDS: 1: AA 5%/Calcium/D15W/Lytes 1,000 ML with MVI, Adult with Vitamin K 10 ML, Chromium/Copp IV SCH ×3 (04:03)
[2017-10-02] MEDS: Pantoprazole 40 MG Tab.CR PO SCH (07:15)
[2017-10-02] MEDS: Albuterol/Ipratropium 3.0-0.5 MG/3 ML Neb Soln NEB SCH ×4 (07:25→20:41)
[2017-10-02] MEDS ORDERED: Central Total Parenteral Nutrition Bag SCH (07:30)
[2017-10-02] MEDS: Albumin 25% 50 ML IV SCH ×2 (08:10→11:13)
[2017-10-02] MEDS: Fluconazole 100 MG Tab PO SCH (08:12)
[2017-10-02] MEDS: Metoprolol Tartrate 25 MG Tab PO SCH ×2 (08:13→20:44)
[2017-10-02] MEDS: Venlafaxine 75 MG Cap.ER PO SCH (08:13)
[2017-10-02] MEDS: Hydrochlorothiazide 25 MG Tab PO SCH (08:13)
--- NOTE | 2017-10-02 09:14 | PN ---
DATE OF SERVICE: 10/02/2017 SUBJECTIVE: Iris was transferred from ICU to second floor. She has been off the ventilator for 2 days. She is having loose stools. Cough is loose. Oral intake 240 mL. TPN is running. Oral output 1900. MILO drain #1 put out 25 mL. Pain is controlled, ambulating, and she has no other questions or concerns. OBJECTIVE: GENERAL: Iris Mosley is a 67-year-old female, alert, orientated. VITAL SIGNS: TPR is 98.1, 72, 18. Blood pressure 107/69. HEENT: Negative. NECK: Supple. HEART: Regular rate and rhythm. LUNGS: Clear. She does have rhonchi with coughing. ABDOMEN: Incision negative. Soft, minimally tender. MILO drain #1 and #2 put out 25 mL. EXTREMITIES: Without peripheral edema. ASSESSMENT: 1. Exploratory laparotomy with rectosigmoid resection and coloproctostomy, drainage of pericolonic abscess, excision of peritoneal incision overlying omentum and mobilization of omentum into pelvis to displace small bowel from pelvic surfaces reducing subsequent adhesion formation, for stricture of distal sigmoid colon with intense inflammatory response and associated pericolonic abscess and nodular-appearing lesion overlying the omentum. Date of surgery, 09/21/2017. 2. Delayed primary closure of open abdominal incision for open abdominal incision. Date of procedure, 09/23/2017. 3. Acute respiratory distress. PLAN: 1. Regular diet. 2. Decrease TPN to 40 mL per hour. 3. Check CBC, CMP, magnesium, phosphorus, and BNP. 4. We will evaluate p.r.n. or in the a.m. Cathy Dolan PA-C /[id number]
[2017-10-02] MEDS: Levofloxacin 500 MG Tab PO SCH (13:46)
[2017-10-02] MEDS: Levofloxacin 250 MG Tab PO SCH (13:46)
[2017-10-03] MEDS ORDERED: 1: AA 5%/Calcium/D15W/Lytes 1,000 ML with MVI, Adult with Vitamin K 10 ML, Chromium/Copp IV SCH ×3 (02:00)
[2017-10-03] MEDS: Albuterol/Ipratropium 3.0-0.5 MG/3 ML Neb Soln NEB SCH ×4 (07:02→20:21)
[2017-10-03] MEDS: Pantoprazole 40 MG Tab.CR PO SCH (07:11)
[2017-10-03] MEDS ORDERED: Acetaminophen 325 MG Tab PO PRN (07:45)
[2017-10-03] MEDS: traMADol 50 MG Tab PO PRN (09:15)
[2017-10-03] MEDS: Potassium Phosphates 22.5 MMOLE in Sodium Chloride 0.9% 100 ML IV SCH ×2 (09:16→13:31)
[2017-10-03] MEDS: Albumin 25% 50 ML IV SCH ×2 (09:21→11:47)
[2017-10-03] MEDS: Fluconazole 100 MG Tab PO SCH (09:29)
[2017-10-03] MEDS: Hydrochlorothiazide 25 MG Tab PO SCH (09:29)
[2017-10-03] MEDS: Venlafaxine 75 MG Cap.ER PO SCH (09:29)
[2017-10-03] MEDS: Metoprolol Tartrate 25 MG Tab PO SCH ×2 (09:33→20:13)
[2017-10-03] MEDS: Levofloxacin 500 MG Tab PO SCH (13:33)
[2017-10-03] MEDS: Levofloxacin 250 MG Tab PO SCH (13:33)
--- NOTE | 2017-10-03 15:42 | PN ---
DATE OF SERVICE: 10/03/2017 HISTORY: The patient has been afebrile with stable vital signs. She did move her bowels and MILO drain remains serous. Oral intake has been pickup and we will finish off the present IV TPN at 40 mL an hour and then stop TPN when that is completed. We will switch her to oral pain medication today. Her potassium is marginally low. Once again, we will give her some additional K-Phos IV today, and otherwise, perhaps the biggest factor at this point would be improving her activity level prior to discharge. We will have her walk to tolerance at least 6 times a day from this point going forward. Gary Lam MD /[id number]
[2017-10-04] MEDS: Albuterol/Ipratropium 3.0-0.5 MG/3 ML Neb Soln NEB SCH ×4 (07:05→21:12)
[2017-10-04] MEDS: Pantoprazole 40 MG Tab.CR PO SCH (07:58)
[2017-10-04] MEDS: Venlafaxine 75 MG Cap.ER PO SCH (08:00)
[2017-10-04] MEDS: Fluconazole 100 MG Tab PO SCH (08:00)
[2017-10-04] MEDS: Hydrochlorothiazide 25 MG Tab PO SCH (08:00)
[2017-10-04] MEDS: Metoprolol Tartrate 25 MG Tab PO SCH ×2 (08:00→20:01)
[2017-10-04] MEDS: traMADol 50 MG Tab PO PRN ×2 (09:26→19:55)
[2017-10-04] MEDS: Levofloxacin 250 MG Tab PO SCH (14:10)
[2017-10-04] MEDS: Levofloxacin 500 MG Tab PO SCH (14:10)
[2017-10-05] MEDS: Albuterol/Ipratropium 3.0-0.5 MG/3 ML Neb Soln NEB SCH ×4 (07:17→20:52)
[2017-10-05] MEDS: Pantoprazole 40 MG Tab.CR PO SCH ×2 (07:59→15:50)
[2017-10-05] MEDS: Metoprolol Tartrate 25 MG Tab PO SCH ×2 (08:04→20:57)
[2017-10-05] MEDS: Venlafaxine 75 MG Cap.ER PO SCH (08:04)
[2017-10-05] MEDS: Hydrochlorothiazide 25 MG Tab PO SCH (08:07)
[2017-10-05] MEDS: Fluconazole 100 MG Tab PO SCH (08:07)
[2017-10-05] MEDS: Ibuprofen 400 MG Tab PO SCH ×3 (08:49→20:52)
--- NOTE | 2017-10-05 08:50 | PN ---
DATE OF SERVICE: 10/05/2017 SUBJECTIVE: Iris's pain has been controlled. She has been using Ultram, but has been concerned that it is causing some confusion. Vital signs have been stable, afebrile, and up ambulating. Oral intake was 560. She consumed 75, 25, and 90 of her meals respectively yesterday and had 2 bowel movements. REVIEW OF SYSTEMS: Remainder of review of systems negative for any pertinent positives and negatives. OBJECTIVE: GENERAL: Iris Mosley is a 67-year-old female, alert and orientated. VITAL SIGNS: TPR 98.1, 87, 18, and blood pressure 107/41. HEENT: Negative. NECK: Supple. HEART: Regular rate and rhythm. LUNGS: Clear. ABDOMEN: Incision looks good. Steri-Strips in place and 4x4s over MILO drain sites. EXTREMITIES: Without peripheral edema. ASSESSMENT: 1. Exploratory laparotomy with rectosigmoid resection and coloproctostomy, drainage of pericolonic abscess, excision of peritoneal incision overlying omentum and mobilization of omentum into pelvis to displace small bowel from pelvic surfaces reducing subsequent adhesion formation for stricture of distal sigmoid colon with intense inflammatory response and associated pericolonic abscess and nodular-appearing lesion overlying omentum. Date of surgery, 09/21/2017. 2. Delayed primary closure of open abdominal incision for open abdominal incision. Date of procedure, 09/23/2017. 3. Acute respiratory distress requiring intubation. PLAN: 1. Consult Discharge Planning for home health care and physical therapy. 2. Motrin 400 mg q.6 hours scheduled with food. 3. Tylenol 650 mg p.o. q.6 hours scheduled. 4. Protonix 40 mg p.o. b.i.d. 5. Discontinue tramadol. 6. Good pulmonary toilet. 7. We will evaluate p.r.n. or in a.m. 8. Planned discharge in a.m. Cathy Dolan PA-C /[id number]
[2017-10-05] MEDS: Acetaminophen 325 MG Tab PO SCH ×3 (12:14→22:05)
[2017-10-05] MEDS: Levofloxacin 250 MG Tab PO SCH (14:24)
[2017-10-05] MEDS: Levofloxacin 500 MG Tab PO SCH (14:24)
[2017-10-06] MEDS: Ibuprofen 400 MG Tab PO SCH ×2 (01:30→08:21)
[2017-10-06] MEDS: Acetaminophen 325 MG Tab PO SCH ×2 (03:21→11:04)
[2017-10-06] MEDS: Pantoprazole 40 MG Tab.CR PO SCH (07:18)
[2017-10-06] MEDS: Albuterol/Ipratropium 3.0-0.5 MG/3 ML Neb Soln NEB SCH (07:28)
[2017-10-06] MEDS: Hydrochlorothiazide 25 MG Tab PO SCH (08:22)
[2017-10-06] MEDS: Venlafaxine 75 MG Cap.ER PO SCH (08:22)
[2017-10-06] MEDS: Fluconazole 100 MG Tab PO SCH (08:22)
[2017-10-06] MEDS: Metoprolol Tartrate 25 MG Tab PO SCH (08:23)
[2017-10-06] MEDS: Levofloxacin 500 MG Tab PO SCH (10:49)
[2017-10-06] MEDS: Levofloxacin 250 MG Tab PO SCH (10:50)
--- NOTE | 2017-10-06 12:04 | DISCH ---
ADMISSION DIAGNOSES: 1. Stricture of the sigmoid colon, presenting proximal examination of the colon. 2. Mixed hyperlipidemia. 3. Tobacco disorder. 4. Anxiety. 5. Hormonal replacement therapy. 6. Osteopenia. 7. Cardiomyopathy of undetermined type. 8. Moderate aortic insufficiency. 9. Abnormal cardiovascular stress test in November 2013. Imaging portion of the exam was normal and ejection fraction of 60%. 10.Basal cell carcinoma of the leg. 11.Gastroesophageal reflux disease with esophagitis. 12.Essential hypertension. DISCHARGE DIAGNOSES: 1. Exploratory laparotomy with: a. Rectosigmoid resection with coloproctostomy. b. Drainage of pericolonic abscess. c. Excision of peritoneal incision overlying omentum. d. Mobilization of the omentum into pelvis to displace small bowel from pelvic surfaces reducing subsequent adhesion formation. POSTOPERATIVE DIAGNOSES: 1. Stricture of distal sigmoid colon with intense inflammatory response and associated pericolonic abscess. 2. Nodule-appearing lesion overlying omentum. Date, 09/21/2017. 3. Delayed primary closure of open abdominal incision for open abdominal incision on 09/23/2017. HISTORY: Iris is a 67-year-old female presenting with recent colonoscopy exam, which did not allow placement of the scope proximally to around [address] showed a mass in that area. After preoperative evaluation and discussion of possible risks and possible complications, she wished to proceed with surgical procedure. Delayed primary closure was done on 09/23/2017, for open abdominal incision. HOSPITAL COURSE: Iris Mosley had her original surgery on 09/21/2017 with a delayed primary closure on 09/23/2017. She had no operative complications. On 09/24/2017, she had a consultation by the hospitalist concerning evaluation and management of shortness of breath and hypoxia. Her acute hypoxic respiratory failure was most likely the result of chronic lung disease related to [id number]-orid smoking history. A chest x-ray showed possible pulmonary embolism versus infectious infiltrate. Unable to do a chest CT with PE protocol, as the patient was unable to lay flat due to shortness of breath. EKG showed normal left ventricular function. She was transferred to ICU and had a noninvasive positive pressure ventilation, O2 and albuterol nebs and DuoNeb were ordered. She did start on Zosyn and levofloxacin IV. A bilateral venous Doppler study to rule out DVT was done and was negative. On 09/24/2017, she was intubated. On 09/25/2017, she was stable with a temp max of 100.6 and heart rate 110 to 120. Gram stain showed fungal elements with gram-positive cocci. Added to her current antibiotics, diflucan. NG output was good. Blood gases remained within normal limits. Ventilator was adjusted accordingly. Potassium was replaced. On 09/26/2017, she was fairly stable with acute respiratory distress syndrome. She was monitored on whether to start to be weaned off the respirator. On 09/27/2017, she was stable and gradually improving. She was undergoing spontaneous breathing trials. On 09/28/2017, she was afebrile. NG output was scant. She was stable. White count was normal. Weaning off the respirator resulted in tachycardia and hypertension, limited by anxiety. On 09/30/2017, she remained to be stable, extubated on that day, and continued to get added nutrition with TPN. On 10/01/2017, she was afebrile. Respiratory status was good. O2 at 1 L was 92%. She was starting to feel hungry. TPN was continued. White count went up to 16,000. She continued to be seen by Physical Therapy for postoperative strengthening. On 10/02/2017, she was transferred to second floor. The cough was loose and productive. Oral intake was 1900, and she started having loose stools. She was started on a regular diet. TPN was decreased and then discontinued. On 10/03/2017, K-Phos was replaced. On 10/05/2017, there was some confusion, thought to be secondary to Ultram, changed to Motrin and Tylenol on a p.r.n. basis. She was ambulating, feeling stronger, and appetite had increased. On 10/06/2017, she was able to be discharged to home with Home Health care. PHYSICAL EXAMINATION: GENERAL: Iris Mosley is a 67-year-old female. VITAL SIGNS: Height is 5 feet 1.81 inches. Weight is 171 pounds. TPR is 97.7, 91, 18, and blood pressure 129/50. HEENT: Negative. NECK: Supple. HEART: Regular rate and rhythm. LUNGS: Clear. ABDOMEN: Midline incision, joseph are intact, and they will be removed prior to discharge. Steri-Strips on. Abdominal binder is on. EXTREMITIES: Without peripheral edema. DISPOSITION: Discharged to home. CONDITION: Stable and improving. FOLLOWUP: Followup appointment with Cathy Dolan PA-C, on 10/15/2017 at 10 a.m. DISCHARGE MEDICATIONS: Home Medications: 1. Tylenol 650 mg q.6 hours p.r.n. pain. 2. Albuterol 2.5 mg inhaler every 4 hours p.r.n. shortness of breath or wheezing. 3. DuoNeb 3 mL nebulized, 4 times a day p.r.n. shortness of breath. 4. Rash Relief-Zinc Oxide use as directed. 5. Levaquin 500 mg every 24 hours for 5 days. 6. Xanax 0.25 mg oral at bedtime. 7. Hydrochlorothiazide 25 mg oral daily. 8. Metoprolol 50 mg oral daily. 9. Omeprazole 20 mg oral daily. 10.Pravachol 40 mg oral at bedtime. 11.Effexor XR 75 mg oral daily. DISCHARGE DIET: Regular diet as tolerated. Drink 8 to 10 glasses of water a day. ACTIVITY: No lifting greater than 10 pounds for 6 weeks. Other activity, walk 6 times inside your home daily, gradually increasing as tolerated. Driving after discharge, do not drive for 2 weeks. Shower/bathing, may shower. DISCHARGE INSTRUCTIONS: Notify provider if any fever, increased pain, nausea, or vomiting. Keep site clean and dry. Wear abdominal binder for 4 weeks and then as tolerated. Take off Steri-Strips in 2 weeks. Special instruction, use incentive spirometer 10 times every hour while awake. A prescription was written for a walker with four wheels and seat.
--- NOTE | 2017-10-07 12:15 | OR ---
DATE OF PROCEDURE: 09/29/2017 PREOPERATIVE DIAGNOSIS: Indication for central venous access. POSTOPERATIVE DIAGNOSIS: Indication for central venous access. OPERATIVE PROCEDURE: Insertion of left subclavian vein triple-lumen catheter ([id number]). ANESTHESIA: Local. INDICATION FOR PROCEDURE: The patient is now reaching the point where IV hyperalimentation is required postoperatively. She also continues to have multiple peripheral IV lines and to facilitate overall cares as well as to implement TPN, the patient is to undergo a central line insertion. Potential risks of the procedure were reviewed with the patient's , he and the rest of the family wished to proceed. DETAILS OF PROCEDURE: The patient was placed in a supine position on the hospital bed. The upper chest and neck areas were prepped and draped. The left subclavian area was anesthetized with 1% lidocaine. Left subclavian vein was then cannulated. A guidewire was passed and over the guidewire, a triple-lumen catheter positioned. Good in and outflow were noted. The catheter and ports were flushed with heparinized saline. Catheter was sutured to the skin with some 3-0 silk stitch and dressing applied. Subsequent chest x-ray showed no complications with the tip in the area of superior vena cava, right atrial junction. The procedure was then concluded. Gary Lam MD /[id number]
--- NOTE | 2017-10-07 12:50 | PN ---
DATE OF SERVICE: 10/04/2017 The patient has been afebrile with stable vital signs. Oral intake has been fairly good, around 1200 mL and she continues to move her bowels. MILO drain is clearly serous and minimal output. We will discontinue the drain today. She continues to have some unsteadiness but is dramatically better today and will be ready for discharge home tomorrow. At that time, we will probably send her home with a course of Levaquin to consolidate the antibiotic coverage for the pneumonia. Gary Lam MD /[id number]
== END 2017-10-06 11:05 | disposition home health service (06) | DRG 329 ==
LOC: JP.SDS 07:48 → JP.SDSSCHI 07:48 → UNDOADMIN 07:48 → EDSTATUS 11:45 → JP.2SS 14:15 → JP.SDSSCHI 14:15 → JP.ICU 09-24 15:03 → JP.MS 10-01 13:50
PROVIDERS: ADMIT Surgery; ATTEND Surgery
PROC: 0D1N0ZP Bypass Sigmoid Colon to Rectum, Open Approach (ICD-10-PCS; principal; 2017-09-21)
PROC: 0DBU0ZZ Excision of Omentum, Open Approach (ICD-10-PCS; 2017-09-21)
PROC: 0DBP0ZX Excision of Rectum, Open Approach, Diagnostic (ICD-10-PCS; 2017-09-21)
PROC: 0DBN0ZX Excision of Sigmoid Colon, Open Approach, Diagnostic (ICD-10-PCS; 2017-09-21)
PROC: 0D9W0ZX Drainage of Peritoneum, Open Approach, Diagnostic (ICD-10-PCS; 2017-09-21)
PROC: 0DNU0ZZ Release Omentum, Open Approach (ICD-10-PCS; 2017-09-21)
PROC: 0WQF0ZZ Repair Abdominal Wall, Open Approach (ICD-10-PCS; 2017-09-23)
PROC: 0BH17EZ Insertion of Endotracheal Airway into Trachea, Via Natural or Artificial Opening (ICD-10-PCS; 2017-09-24)
PROC: 5A1955Z Respiratory Ventilation, Greater than 96 Consecutive Hours (ICD-10-PCS; 2017-09-24)
PROC: 02H633Z Insertion of Infusion Device into Right Atrium, Percutaneous Approach (ICD-10-PCS; 2017-09-29)
PROC: B244ZZZ Ultrasonography of Right Heart (ICD-10-PCS; 2017-09-29)
DX: K56.699 Other intestinal obstruction unspecified as to partial versus complete obstruction (principal); K65.1 Peritoneal abscess; J96.01 Acute respiratory failure with hypoxia; K57.80 Diverticulitis of intestine, part unspecified, with perforation and abscess without bleeding; E87.4 Mixed disorder of acid-base balance; I42.9 Cardiomyopathy, unspecified; R22.2 Localized swelling, mass and lump, trunk; K76.0 Fatty (change of) liver, not elsewhere classified; K63.89 Other specified diseases of intestine; Z48.1 Encounter for planned postprocedural wound closure; I10 Essential (primary) hypertension; E78.2 Mixed hyperlipidemia; F41.9 Anxiety disorder, unspecified; F17.210 Nicotine dependence, cigarettes, uncomplicated; Z85.828 Personal history of other malignant neoplasm of skin; I35.1 Nonrheumatic aortic (valve) insufficiency; K21.9 Gastro-esophageal reflux disease without esophagitis; M85.852 Other specified disorders of bone density and structure, left thigh; M85.851 Other specified disorders of bone density and structure, right thigh; M85.88 Other specified disorders of bone density and structure, other site; H52.13 Myopia, bilateral; H35.9 Unspecified retinal disorder; Z88.8 Allergy status to other drugs, medicaments and biological substances; E87.6 Hypokalemia; E83.39 Other disorders of phosphorus metabolism; K56.7 Ileus, unspecified; E88.09 Other disorders of plasma-protein metabolism, not elsewhere classified; Z79.890 Hormone replacement therapy; R41.0 Disorientation, unspecified; T40.4X5A Adverse effect of other synthetic narcotics, initial encounter; Y92.230 Patient room in hospital as the place of occurrence of the external cause
CPT/HCPCS: 36415; 36600; 51701; 51702; 71045; 71045-26; 71046; 71046-26; 71275; 71275-26; 80048; 80053; 80202; 82378; 82803; 83605; 83735; 83880; 84100; 84132; 84484; 85025; 85027; 86850; 86900; 86901; 87040; 87070; 87075; 87077; 87186; 87205; 88305; 88307; 93005; 93306; 93970; 93970-26; 94002; 94003; 94640; 94660; 94762; 94799; 97110-GP; 97116-GP; 97161-GP; 97530-GP; 97535-GP; A9270-GY; C1713; C9113; J0171; J0330; J0694; J1100; J1170; J1450; J1630; J1642; J1644; J1940; J1956; J2001; J2060; J2185; J2405; J2543; J2704; J2710; J2795; J2920; J3010; J3370; J3410; J3475; J3480; J3490; J7030; J7040; J7042; J7050; J7620; P9047; Q9967

== ENCOUNTER 2019-04-29 10:02 | Inpatient (IN) | payer MEDICARE, BC ==
[~2019-04-29 10:02] MED LIST changes: +Bupivacaine 0.5% 50 ML MDV ONE; -Dexamethasone 4 MG/ML SDV ONE; -Glycopyrrolate 0.2 MG/ML 5 ML MDV ONE; +HYDROmorphone/Normal Saline 15 MG/30 ML PCA IV PRN; +Lidocaine 1% with EPINEPHrine 1:100,000 50 ML MDV ONE; +Naloxone 0.4 MG/ML SDV IVPUSH PRN; -Neostigmine Methylsulfate 1 MG/ML 5 ML Syringe ONE; +Ondansetron 4 MG/2 ML SDV IVPUSH PRN; -Ondansetron 4 MG/2 ML SDV ONE; -Propofol 200 MG/20 ML SDV ONE; -Rocuronium 50 MG/5 ML Vial ONE; -Succinylcholine 200 MG/10 ML MDV ONE; +diphenhydrAMINE 25 MG Cap PO PRN; +diphenhydrAMINE 50 MG/ML SDV IVPUSH PRN
[2019-04-29] MEDS ORDERED: Acetaminophen 500 MG Tab PO ONE (10:15)
[2019-04-29] MEDS ORDERED: ceFAZolin 2 GM in Premix Bag 1 BAG IV ONE (10:15)
[2019-04-29] MEDS: Dextrose 5%-Lactated Ringers 1,000 ML IV SCH (10:44)
[2019-04-29] MEDS ORDERED: Propofol 200 MG/20 ML SDV ONE (11:42)
[2019-04-29] MEDS ORDERED: Midazolam 1 MG/ML 2 ML SDV ONE (11:42)
[2019-04-29] MEDS ORDERED: fentaNYL 250 MCG/5 ML SDV ONE (11:42)
[2019-04-29] MEDS ORDERED: Ondansetron 4 MG/2 ML SDV ONE (11:42)
[2019-04-29] MEDS ORDERED: Neostigmine Methylsulfate 1 MG/ML 5 ML Syringe ONE (11:42)
[2019-04-29] MEDS ORDERED: Glycopyrrolate 0.2 MG/ML 5 ML MDV ONE (11:42)
[2019-04-29] MEDS ORDERED: Dexamethasone 4 MG/ML SDV ONE (11:42)
[2019-04-29] MEDS ORDERED: Rocuronium 50 MG/5 ML Vial ONE ×2 (11:42→14:37)
[2019-04-29] MEDS ORDERED: Ketamine 50 MG in Sodium Chloride 0.9% 49.5 ML IV SCH (12:00)
[2019-04-29] MEDS ORDERED: Ropivacaine 36 ML, dexAMETHasone 8 MG, EPINEPHrine 0.4 MG, Sodium Chloride 0.9% 41.6 ML NERVRT SCH ×4 (12:00)
[2019-04-29] MEDS ORDERED: Naloxone 0.4 MG/ML SDV IV PRN (12:00)
[2019-04-29] MEDS ORDERED: Ketamine 500 MG/5 ML MDV IV SCH (12:00)
[2019-04-29] MEDS ORDERED: Atropine 0.4 MG/ML SDV ONE (13:23)
[2019-04-29] MEDS ORDERED: fentaNYL 100 MCG/2 ML SDV ONE ×2 (14:22→14:54)
[2019-04-29] MEDS ORDERED: Meropenem 500 MG SDV ONE (14:26)
[2019-04-29] MEDS ORDERED: Lactated Ringers 1,000 ML ONE (14:37)
[2019-04-29] MEDS: HYDROmorphone/Normal Saline 15 MG/30 ML PCA IV PRN (14:59)
[2019-04-29] MEDS ORDERED: hydrOXYzine HCL 100 MG/2 ML SDV IM PRN (16:35)
[2019-04-29] MEDS ORDERED: Ondansetron 4 MG/2 ML SDV IVPUSH PRN (16:35)
[2019-04-29] MEDS ORDERED: ALPRAZolam 0.25 MG Tab PO PRN (16:38)
[2019-04-29] MEDS: Cyclobenzaprine 10 MG Tab PO PRN (17:22)
[2019-04-29] MEDS: Acetaminophen 325 MG Tab PO SCH ×2 (17:30→23:50)
[2019-04-29] MEDS: Pantoprazole 40 MG Vial IVPUSH SCH (17:31)
[2019-04-29] MEDS: Meropenem 500 MG in Sodium Chloride 0.9% 50 ML IV SCH ×2 (17:40→23:51)
[2019-04-29] MEDS: Pravastatin 20 MG Tab PO SCH (20:02)
[2019-04-29] MEDS: Lactated Ringers 500 ML IV ONE (21:17)
[2019-04-30] MEDS ORDERED: Lactated Ringers 500 ML IV ONE (00:30)
[2019-04-30] MEDS: Lactated Ringers 500 ML IV ONE (00:53)
[2019-04-30] MEDS: Meropenem 500 MG in Sodium Chloride 0.9% 50 ML IV SCH ×4 (05:10→23:45)
[2019-04-30] MEDS: Acetaminophen 325 MG Tab PO SCH ×4 (05:17→23:45)
[2019-04-30] MEDS: Cyclobenzaprine 10 MG Tab PO PRN ×2 (07:54→16:04)
[2019-04-30] MEDS: Venlafaxine 75 MG Cap.ER PO SCH (08:00)
[2019-04-30] MEDS: Hydrochlorothiazide 25 MG Tab PO SCH (08:00)
[2019-04-30] MEDS: Metoprolol Succinate 50 MG Tab.ER PO SCH (08:01)
[2019-04-30] MEDS: Dextrose 5%-Lactated Ringers 1,000 ML IV SCH ×3 (08:45→19:31)
[2019-04-30] MEDS: Magnesium Sulfate/Water 2 GM in Premix Bag 1 BAG IV SCH ×3 (10:27→21:17)
[2019-04-30] MEDS: HYDROmorphone/Normal Saline 15 MG/30 ML PCA IV PRN (12:25)
[2019-04-30] MEDS: Pantoprazole 40 MG Vial IVPUSH SCH (17:57)
[2019-04-30] MEDS: Pravastatin 20 MG Tab PO SCH (21:17)
[2019-05-01] MEDS: Magnesium Sulfate/Water 2 GM in Premix Bag 1 BAG IV SCH ×4 (03:37→22:21)
[2019-05-01] MEDS ORDERED: fentaNYL 100 MCG/2 ML SDV ONE (05:35)
[2019-05-01] MEDS ORDERED: Propofol 200 MG/20 ML SDV ONE (05:35)
[2019-05-01] MEDS ORDERED: Midazolam 1 MG/ML 2 ML SDV ONE (05:35)
[2019-05-01] MEDS: Meropenem 500 MG in Sodium Chloride 0.9% 50 ML IV SCH ×3 (05:47→18:10)
[2019-05-01] MEDS: Acetaminophen 325 MG Tab PO SCH ×3 (05:50→18:36)
[2019-05-01] MEDS ORDERED: Bupivacaine 0.5% 50 ML MDV ONE (06:05)
[2019-05-01] MEDS ORDERED: Meropenem 500 MG SDV ONE (06:05)
[2019-05-01] MEDS ORDERED: Lidocaine 1% with EPINEPHrine 1:100,000 50 ML MDV ONE (06:05)
[2019-05-01] MEDS ORDERED: Ropivacaine 36 ML, dexAMETHasone 8 MG, EPINEPHrine 0.4 MG, Sodium Chloride 0.9% 41.6 ML NERVRT SCH ×4 (07:00)
[2019-05-01] MEDS ORDERED: Lactated Ringers 1,000 ML ONE (07:28)
[2019-05-01] MEDS ORDERED: Dextrose 5%-Lactated Ringers 1,000 ML IV SCH (09:00)
[2019-05-01] MEDS: Docusate Sodium 100 MG Cap PO SCH ×2 (09:46→20:05)
[2019-05-01] MEDS: Bisacodyl 5 MG Tab PO SCH ×2 (09:46→20:06)
[2019-05-01] MEDS: Venlafaxine 75 MG Cap.ER PO SCH (09:46)
[2019-05-01] MEDS: Metoprolol Succinate 50 MG Tab.ER PO SCH (09:47)
[2019-05-01] MEDS: Furosemide 20 MG/2 ML VIAL IVPUSH SCH ×2 (09:47→20:06)
[2019-05-01] MEDS: Hydrochlorothiazide 25 MG Tab PO SCH (09:49)
[2019-05-01] MEDS: Potassium Phos in 0.9 % NaCl 15 MMOL in Premix Bag 1 BAG IV SCH ×6 (10:40→15:13)
--- NOTE | 2019-05-01 13:35 | PN ---
DATE OF SERVICE: 04/30/2019 The patient has been afebrile with stable vital signs. Urine output has been on the low end overnight, but creatinine is stable. At the previous hospitalization, she had quite a bit of problems with fluid overload and does have a history of cardiomyopathy. We will try to keep the urine output right around 30 mL an hour. We will leave the IV presently at 150 mL an hour which she was overnight, but after the urine output exceeds 35 mL an hour, they will contact me and we will begin backing down on the IV rate and we will continue to follow daily labs including BNP. Otherwise, respiratory status appears to be good at this point, and no nausea or vomiting. Drainage of blood, but there is no significant drop in hemoglobin, which is 13.1 today. The patient's magnesium is somewhat low and that will be supplemented over the next 48 hours, and we will proceed with delayed primary closure of abdominal incision tomorrow. Gary Lam MD /[id number]
[2019-05-01] MEDS ORDERED: HYDROmorphone 1 MG/ML Syringe IVPUSH PRN (16:37)
[2019-05-01] MEDS: Pantoprazole 40 MG Vial IVPUSH SCH (18:10)
[2019-05-01] MEDS: Pravastatin 20 MG Tab PO SCH (20:06)
[2019-05-02] MEDS: Meropenem 500 MG in Sodium Chloride 0.9% 50 ML IV SCH ×3 (00:26→11:18)
[2019-05-02] MEDS: Acetaminophen 325 MG Tab PO SCH ×5 (00:29→23:00)
[2019-05-02] MEDS: Magnesium Sulfate/Water 2 GM in Premix Bag 1 BAG IV SCH (03:29)
--- NOTE | 2019-05-02 08:03 | PN ---
DATE OF SERVICE: 05/01/2019 The patient has been afebrile with stable vital signs. No flatus or bowel movements as of yet. Respiratory status appeared to be fairly good. She is spontaneously diuresing. At this point, we will augment diuresis today with some IV Lasix. Potassium and phosphate are marginally low, and will be supplemented. Otherwise, she underwent delayed primary closure. We will begin some bowel stimulation today. Otherwise, maximize activity and work with pulmonary toilet. Gary Lam MD /[id number]
[2019-05-02] MEDS: Potassium Chloride 20 MEQ, Lidocaine 1% 2 ML in Sodium Chloride 0.9% 100 ML IV SCH ×2 (08:44→11:56)
[2019-05-02] MEDS: Furosemide 20 MG/2 ML VIAL IVPUSH SCH ×2 (08:45→14:31)
[2019-05-02] MEDS: Metoprolol Succinate 50 MG Tab.ER PO SCH (08:45)
[2019-05-02] MEDS: Docusate Sodium 100 MG Cap PO SCH ×2 (08:46→20:53)
[2019-05-02] MEDS: Bisacodyl 5 MG Tab PO SCH (08:46)
[2019-05-02] MEDS: Venlafaxine 75 MG Cap.ER PO SCH (08:46)
[2019-05-02] MEDS: Hydrochlorothiazide 25 MG Tab PO SCH (08:46)
--- NOTE | 2019-05-02 10:27 | PN ---
DATE OF SERVICE: 05/02/2019 SUBJECTIVE: Iris is postoperative day #3. She had delayed primary closure yesterday and she started bowel stimulation and sips of liquid. She is not passing any flatus. Vital signs have been stable. She had 1 episode of nausea yesterday. Has no other concerns or questions. OBJECTIVE: GENERAL: Iris Mosley is a pleasant 68-year-old female. VITAL SIGNS: TPR is 98.2, 76, 20, blood pressure 136/51. HEENT: Negative. NECK: Supple. HEART: Regular rate and rhythm. LUNGS: Clear. ABDOMEN: Dressings dry and intact. Abdominal binder is on. EXTREMITIES: Without peripheral edema. ASSESSMENT: Exploratory laparotomy with lysis of extensive adhesions. 1. Repair of incarcerated incisional hernia. 2. Repair of incarcerated umbilical hernia. 3. Right oophorectomy. 4. Right colon resection. 5. Separate small bowel resection. 6. Placement of Vicryl mesh. 7. Needle liver biopsy. POSTOPERATIVE DIAGNOSES: Incarcerated incisional hernia; incarcerated umbilical hernia; enlarged right ovary, likely benign fibroma on frozen section; focal dense adhesions between pelvic and cecum and small bowel; resection of right colon and separate small bowel resection; marked hepatomegaly. Surgeon: Gary Lam MD. Date of surgery: 04/01/2019. PLAN: 1. Discontinue Judge catheter. 2. Lasix 20 mg IV b.i.d. today 1 day only. 3. KCl 40 mEq IV. 4. Good pulmonary toilet. 5. We will evaluate p.r.n. or in a.m. Cathy Dolan PA-C /[id number]
[2019-05-02] MEDS ORDERED: Pantoprazole 40 MG Tab.CR PO SCH (16:30)
[2019-05-02] MEDS: Pravastatin 20 MG Tab PO SCH (20:53)
[2019-05-03] MEDS: Acetaminophen 325 MG Tab PO SCH (05:43)
[2019-05-03] MEDS: Metoprolol Succinate 50 MG Tab.ER PO SCH (08:37)
[2019-05-03] MEDS: Docusate Sodium 100 MG Cap PO SCH (08:38)
[2019-05-03] MEDS: Hydrochlorothiazide 25 MG Tab PO SCH (08:38)
[2019-05-03] MEDS: Venlafaxine 75 MG Cap.ER PO SCH (08:38)
--- NOTE | 2019-05-05 15:13 | DISCH ---
FINAL DIAGNOSES: 1. Incarcerated incisional hernia. 2. Incarcerated umbilical hernia. 3. Enlarging right ovary (likely benign, pathology pending). 4. Dense intraperitoneal adhesions necessitating dissection of densely fixed cecum from pelvis, requiring a right colectomy. 5. Separate area of small bowel deserosalized, requiring resection. 6. Marked hepatomegaly. 7. History of cardiomyopathy. 8. History of hypertension. 9. History of hyperlipidemia. OPERATIVE PROCEDURES: Done on 04/29/2019. DICTATION ENDS HERE.
--- NOTE | 2019-05-06 07:03 | DISCH ---
FINAL DIAGNOSES: 1. Incarcerated incisional and umbilical hernias. 2. Enlarging right ovary (likely benign by frozen section). 3. Four adhesions between the cecum, small bowel, and pelvis requiring right colectomy and separate small bowel resections. 4. Marked hepatomegaly. 5. History of cardiomyopathy. 6. History of hyperlipidemia. 7. History of hypertension. PROCEDURE: 1. Operative procedure done on 04/29/2019, exploratory laparotomy with lysis of extensive adhesions. a. Repair of incarcerated incisional hernia. b. Repair of incarcerated umbilical hernia. c. Right oophorectomy. d. Right colectomy. e. Separate small bowel resection. f. Placement of Vicryl mesh to limit recurrent adhesions between pelvic and abdominal wall and adjacent viscera. g. Chucho-Cut needle liver biopsy. SUMMARY: This is a 68-year-old status post a left colon resection for perforated diverticulitis. She presents now with enlarging incisional hernia involving the upper midline incision and involving a separate umbilical hernia. On CT scan, she was also noted to have an enlarging right ovary which is solid, and the plan on admission was to proceed with an exploratory laparotomy with repair of the hernias with mesh along with oophorectomy. At the time of exploration, the patient was noted to have extremely dense adhesions in the area of the pelvis covering up the left ovary. This dissection required extensive dissection of the cecum and a separate loop of small bowel, both of which needed to be resected. The ovary was felt to most likely be a fibroma on frozen section, and final pathology is pending. Because of the open bowel, the hernias were repaired without mesh knowing there may be a significant likelihood of recurrence. She had fatty liver on CT scan and the liver was also quite markedly enlarged; therefore, Chucho-Cut needle biopsies were obtained. The patient during the previous hospitalization had problems with fluid overload. We were careful to avoid that in this case, and she has been diuresing nicely and then will be discharged home. Her BMP has fallen back into the normal range as of today. She will be discharged home with taking only Tylenol for pain. Her potassium has been low; it was 3.1 this morning. We gave her potassium chloride 20 mEq two tablets daily x1 month and then to augment the diuresis, we will give her Lasix 20 mg p.o. today and then 3 additional days. She will be following up with Dr. Lam at [facility] on 05/11/2019.
--- NOTE | 2019-05-08 14:58 | OR ---
DATE OF PROCEDURE: 05/01/2019 SURGEON: Gary Lam MD PREOPERATIVE DIAGNOSIS: Open abdominal incision. POSTOPERATIVE DIAGNOSIS: Open abdominal incision. OPERATIVE PROCEDURE: Delayed primary closure of open abdominal incision. ANESTHESIA: Local plus IV sedation. INDICATION FOR PROCEDURE: This is a 68-year-old status post a bowel procedure in which the skin and subcutaneous tissue were felt to be at high risk for wound infection if they were closed primarily. Given this, the wound was packed open for a planned delayed primary closure at this time. Potential risks of the procedure including bleeding and infection were discussed, and the patient wishes to proceed. DETAILS OF PROCEDURE: The patient was taken to the operating room and placed in a supine position. After IV sedation was administered, the pre-existing dressing was removed and the wound inspected and found to be clean. The abdomen was then prepped and draped and the incision anesthetized with 1% lidocaine mixed with Marcaine. The incision was then closed with 2 layers of 3-0 and 4-0 Vicryl stitch deep and joseph for the skin. This was a midline incision. With the ultrasound guidance, bilateral transversus abdominis plane blocks were then placed as well and the dressing applied. The patient was taken to the recovery room in satisfactory condition. Gary Lam MD /[id number]
--- NOTE | 2019-05-09 14:56 | OR ---
DATE OF PROCEDURE: 04/29/2019 SURGEON: Gary Lam MD PREOPERATIVE DIAGNOSES: 1. Incisional hernia. 2. Enlarging right ovarian mass. POSTOPERATIVE DIAGNOSES: 1. Incarcerated incisional hernia. 2. Incarcerated umbilical hernia. 3. 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 4. Florid dense adhesions between the pelvis and cecum and small bowel necessitating right colon resection and separate small bowel resection. 5. Marked hepatomegaly. OPERATIVE PROCEDURE: Exploratory laparotomy with lysis of extensive adhesions and: 1. Repair of incarcerated incisional hernia (10045). 2. Repair of incarcerated umbilical hernia (74887). 3. Right oophorectomy (46579). 4. Right colon resection (87163). 5. Separate small bowel resection (80817). 6. Placement of Vicryl mesh to displace pelvic and abdominal wall from underlying viscera to limit recurrent adhesion formation (78333). 7. Chucho-Cut needle liver biopsy (83643). ANESTHESIA: General. PULMONARY DISEASE SPECIALIST: Cathy Dolan PA-C. INDICATIONS FOR PROCEDURE: This is a 68-year-old female presenting with enlarging incisional hernia. This appeared to involve the umbilicus and a separate hernia as well. The patient was also noted to have an enlarging solid lesion in the right ovary, and the plan is to proceed with repair of the incisional and umbilical hernias with mesh, along with a right oophorectomy with a saving procedure if, on frozen section, the ovary appears to be malignant. Potential risks of the procedure including bleeding, infection, injury to underlying viscera as well as possible leaks from any GI tract closures might be necessary, and lastly the remote possibility of cardiopulmonary, septic, or hemorrhagic complications leading to were discussed, and the patient wishes to proceed. DETAILS OF PROCEDURE: The patient was taken to the operating room. After general endotracheal anesthesia was induced, a Judge catheter was inserted and the abdomen prepped and draped. Initially, a midline incision was made in the upper abdomen. This extended down to just above the pubis to facilitate the pelvic dissection. As one carried the incision down, the incisional hernia and subsequently the umbilical hernia were encountered, and these were dissected down to the level of the fascia and excised. Both the incisional and umbilical hernias had incarcerated components within them, containing some incarcerated omentum and large and small bowel, which were dissected away from the sacs as the dissection proceeded. The patient was noted preoperatively to have fatty infiltrated liver and the liver was grossly quite enlarged. Chucho-Cut needle biopsy was obtained at the left lobe of the liver. Minimal bleeding from the biopsy sites was controlled with electrocautery. As one sought to identify the right ovary, it became evident this was located within the depths of the pelvis more or less adjacent to the right side of the rectum. There were extremely dense adhesions between the right colon and loops of small bowel and the pelvis. These were gradually dissected free. Following dissection of these segments, it became evident that the right colon and a separate section of small bowel needed to be resected, due to extensive deserosalization secondary to the dense adhesions and subsequent dissection. Eventually, the right ovary was able to be identified. This was roughly the size of a golf ball and was a solid white mass. This was excised with a SALVADOR stapler. Frozen section on this was consistent with a probable fibroma, i.e. benign ovarian finding. There was some discussion preoperatively of removal of the left ovary, but this was at this point also covered with dense adhesions secondary to the patient's sigmoid resection, and with it radiologically normal, this was felt best left in place. At this point, the segment of small bowel which was deserosalized was resected proximally and distally and the small bowel continuity re-established in a [id number] anastomosis with internal firing of the Endo-SALVADOR 60 mm stapler, common opening was then closed transversely with the same stapler and the angles anastomosed and mesenteric defect approximated with some 3-0 Vicryl stitch. The right colon was then mobilized upward with division of the lateral peritoneal attachments. This extended up to the level of the hepatic flexure, and once this area was mobilized, the junction of the hepatic flexure and transverse colon was divided with a SALVADOR stapler, as was the distalmost small bowel, and the right colon was then divided away from its mesentery with series of vascular mesenteric loads and the specimen delivered from the field. The ileocolic anastomosis was accomplished with 2 internal firings of the Endo-SALVADOR 60 mm stapler, the common opening was then closed transversely with the same stapler, angles anastomosed, and mesenteric defect approximated with some 3-0 Vicryl stitch as well. At this point, no further problems were noted. The abdomen was irrigated with meropenem- containing saline solution. A Eugene-Catalan drain was then placed through a stab wound in the right upper abdomen and then placed along the right colic gutter and from there into the pelvis. To limit recurrent adhesion formation, a 12-inch segment of Vicryl mesh was placed down into the depths of the pelvis behind the bladder along the pelvic sidewalls and up against the abdominal wall. The midline fascia was then approximated with #2 Vicryl stitch, which included repair of the umbilical and incisional hernias. The permanent mesh was not used in this case due to the GI tract being open during the procedure. The skin and subcutaneous tissue were packed open for a planned delayed primary closure in 48 hours. The drain was affixed to the skin with 3-0 Vicryl stitch, and the patient taken to the recovery room in satisfactory condition. Physician equity sales assistant, Cathy Dolan, played an essential role in assisting in this case, helping to position the patient, retract structures as needed, as well as suturing and cutting sutures when indicated. Her presence improved patient safety and decreased the operative time. Gary Lam MD /[id number]
== END 2019-05-03 11:00 | disposition home or self-care (01) | DRG 330 ==
LOC: JP.SDSSCHI 10:02 → JP.SDS 10:02 → EDSTATUS 10:30 → JP.MS 16:33
PROVIDERS: ADMIT Surgery; ATTEND Surgery
PROC: 0WQF0ZZ Repair Abdominal Wall, Open Approach (ICD-10-PCS; principal; 2019-04-29)
PROC: 0DTF0ZZ Resection of Right Large Intestine, Open Approach (ICD-10-PCS; 2019-04-29)
PROC: 0WQF0ZZ Repair Abdominal Wall, Open Approach (ICD-10-PCS; 2019-04-29)
PROC: 0DN80ZZ Release Small Intestine, Open Approach (ICD-10-PCS; 2019-04-29)
PROC: 0DN80ZZ Release Small Intestine, Open Approach (ICD-10-PCS; 2019-04-29)
PROC: 0FB20ZX Excision of Left Lobe Liver, Open Approach, Diagnostic (ICD-10-PCS; 2019-04-29)
PROC: 0UB00ZZ Excision of Right Ovary, Open Approach (ICD-10-PCS; 2019-04-29)
PROC: 3E0M05Z Introduction of Adhesion Barrier into Peritoneal Cavity, Open Approach (ICD-10-PCS; 2019-04-29)
PROC: 0HQ7XZZ Repair Abdomen Skin, External Approach (ICD-10-PCS; 2019-04-29)
DX: K43.0 Incisional hernia with obstruction, without gangrene (principal); I42.9 Cardiomyopathy, unspecified; K42.0 Umbilical hernia with obstruction, without gangrene; R16.0 Hepatomegaly, not elsewhere classified; N83.8 Other noninflammatory disorders of ovary, fallopian tube and broad ligament; E78.5 Hyperlipidemia, unspecified; I10 Essential (primary) hypertension; K66.0 Peritoneal adhesions (postprocedural) (postinfection); F17.210 Nicotine dependence, cigarettes, uncomplicated; Z90.49 Acquired absence of other specified parts of digestive tract; Z90.710 Acquired absence of both cervix and uterus; Z98.51 Tubal ligation status; Z98.890 Other specified postprocedural states; Z85.828 Personal history of other malignant neoplasm of skin; Z88.5 Allergy status to narcotic agent; Z79.899 Other long term (current) drug therapy
CPT/HCPCS: 36415; 80053; 82378; 83735; 83880; 84100; 85025; 86304; 88307; 88313; 88331; 94762; A9270-GY; C1781; C9113; J0171; J0461; J0690; J1100; J1170; J1940; J2001; J2020; J2185; J2250; J2405; J2704; J2710; J2795; J3010; J3475; J3480; J3490; J7050; J7120; J7121

== ENCOUNTER 2019-11-08 08:29 | Inpatient (IN) | payer MEDICARE, BC ==
[~2019-11-08 08:29] MED LIST changes: +Bupivacaine 0.5%/EPINEPHrine 1:200,000 50 ML MDV ONE; +Dexamethasone 4 MG/ML SDV ONE; +Glycopyrrolate 0.2 MG/ML 5 ML MDV ONE; -HYDROmorphone/Normal Saline 15 MG/30 ML PCA IV PRN; -Naloxone 0.4 MG/ML SDV IVPUSH PRN; +Neostigmine Methylsulfate 1 MG/ML 5 ML Syringe ONE; -Ondansetron 4 MG/2 ML SDV IVPUSH PRN; +Ondansetron 4 MG/2 ML SDV ONE; +Propofol 200 MG/20 ML SDV ONE; +Rocuronium 50 MG/5 ML Vial ONE; +Succinylcholine 200 MG/10 ML MDV ONE; -diphenhydrAMINE 25 MG Cap PO PRN; -diphenhydrAMINE 50 MG/ML SDV IVPUSH PRN; +fentaNYL 250 MCG/5 ML SDV ONE
[2019-11-08] MEDS ORDERED: Acetaminophen 500 MG Tab PO ONE (08:45)
[2019-11-08] MEDS ORDERED: Dextrose 5%-Lactated Ringers 1,000 ML IV SCH (09:00)
[2019-11-08] MEDS ORDERED: ceFAZolin 2 GM in Premix Bag 1 BAG IV ONE (10:00)
[2019-11-08] MEDS ORDERED: Ropivacaine 35 ML, dexAMETHasone 8 MG, EPINEPHrine 0.4 MG, Sodium Chloride 0.9% 42.6 ML NERVRT SCH ×4 (10:15)
[2019-11-08] MEDS ORDERED: Ketamine 50 MG in Sodium Chloride 0.9% 49.5 ML IV SCH (10:15)
[2019-11-08] MEDS ORDERED: Ketamine 500 MG/5 ML MDV IV SCH (10:15)
[2019-11-08] MEDS ORDERED: fentaNYL 250 MCG/5 ML SDV ONE (11:58)
[2019-11-08] MEDS ORDERED: Lactated Ringers 1,000 ML ONE (12:34)
[2019-11-08] MEDS ORDERED: Labetalol 20 MG/4 ML Syringe ONE (12:39)
[2019-11-08] MEDS ORDERED: HYDROmorphone/Normal Saline 15 MG/30 ML PCA IV PRN (15:03)
[2019-11-08] MEDS ORDERED: Ondansetron 4 MG/2 ML SDV IVPUSH PRN (15:16)
[2019-11-08] MEDS ORDERED: Cyclobenzaprine 10 MG Tab PO PRN (15:22)
[2019-11-08] MEDS ORDERED: Naloxone 0.4 MG/ML SDV IV PRN (16:00)
[2019-11-08] MEDS: Pantoprazole 40 MG Vial IV SCH (16:52)
[2019-11-08] MEDS: ceFAZolin 2 GM in Premix Bag 1 BAG IV SCH (18:35)
[2019-11-08] MEDS: Dextrose 5%-Lactated Ringers 1,000 ML IV SCH (18:36)
[2019-11-08] MEDS: ALPRAZolam 0.25 MG Tab PO PRN (20:40)
[2019-11-08] MEDS: Pravastatin 20 MG Tab PO SCH (20:41)
[2019-11-09] MEDS: Dextrose 5%-Lactated Ringers 1,000 ML IV SCH ×2 (01:26→21:31)
[2019-11-09] MEDS: ceFAZolin 2 GM in Premix Bag 1 BAG IV SCH ×2 (02:54→10:09)
[2019-11-09] MEDS ORDERED: Metoprolol Tartrate 50 MG Tab PO SCH (09:00)
[2019-11-09] MEDS: Lactobacillus Rhamnosus GG (Probiotic) Cap PO SCH ×2 (09:07→21:03)
[2019-11-09] MEDS: Hydrochlorothiazide 25 MG Tab PO SCH (09:07)
[2019-11-09] MEDS: Venlafaxine 75 MG Cap.ER PO SCH (09:07)
[2019-11-09] MEDS: Psyllium Seed (With Sugar) Wafer PO SCH ×2 (09:08→21:02)
[2019-11-09] MEDS: Magnesium Sulfate/Water 2 GM in Premix Bag 1 BAG IV SCH ×3 (09:08→22:00)
[2019-11-09] MEDS: Metoprolol Succinate 50 MG Tab.ER PO SCH (09:08)
--- NOTE | 2019-11-09 09:43 | PN ---
DATE OF SERVICE: 11/09/2019 SUBJECTIVE: Iris is postoperative day #1. Her pain has been controlled. Vital signs stable. Oral intake 100 mL. Judge catheter put out 1375. She has no questions or concerns. LABS THIS MORNING: White count 15.2. Glucose 168, magnesium 1.7. BNP is 1253. OBJECTIVE: VITAL SIGNS: Iris Mosley is a pleasant 69-year-old female. She is sitting up in the chair. VITAL SIGNS: TPR at 0642 is 98; 87; 18; blood pressure 123/45. HEENT: Negative. NECK: Supple. HEART: Regular rate and rhythm. LUNGS: Clear. ABDOMEN: Dressings dry and intact. Abdominal binder is on. EXTREMITIES: With trace peripheral edema. ASSESSMENT: 1. Exploratory laparotomy with lysis of extensive adhesions: a. Repair of recurrent incarcerated incisional hernia with mesh. b. Left oophorectomy. c. Excision of peritoneal nodule. d. Placement of Vicryl mesh. POSTOPERATIVE DIAGNOSES: 1. Recurrent incisional hernia. 2. History of recurrent ovarian cyst. 3. Nodular lesion 11 cm between large and small bowel. 4. Date of procedure: 11/08/2019. Surgeon: Gary Lam MD. PLAN: 1. Decrease IV to 80 mL per hour. 2. Magnesium 2 g IV q.6 hours x72 hours. 3. Leave Judge catheter in for measurement of accurate output due to cardiomyopathy, moderate aortic insufficiency. 4. Labs in the a.m. which have already been ordered. 5. Continue use of incentive spirometer. 6. Ambulate 6 times. 7. We will evaluate p.r.n. or in a.m. Cathy Dolan PA-C /[id number] CESAR
[2019-11-09] MEDS: hydrOXYzine HCL 100 MG/2 ML SDV IM PRN ×2 (10:16→16:07)
[2019-11-09] MEDS: Pantoprazole 40 MG Vial IV SCH (16:06)
[2019-11-09] MEDS: Pravastatin 20 MG Tab PO SCH (21:02)
[2019-11-09] MEDS: ALPRAZolam 0.25 MG Tab PO PRN (22:06)
[2019-11-10] MEDS: Magnesium Sulfate/Water 2 GM in Premix Bag 1 BAG IV SCH ×4 (03:29→22:11)
[2019-11-10] MEDS ORDERED: Furosemide 20 MG/2 ML VIAL IVPUSH ONE (07:15)
[2019-11-10] MEDS ORDERED: Potassium Phosphates 60 MMOLE in Sodium Chloride 0.9% 250 ML IV SCH (07:15)
[2019-11-10] MEDS: Lactobacillus Rhamnosus GG (Probiotic) Cap PO SCH ×2 (08:42→20:36)
[2019-11-10] MEDS: Metoprolol Succinate 50 MG Tab.ER PO SCH (08:42)
[2019-11-10] MEDS: Psyllium Seed (With Sugar) Wafer PO SCH ×2 (08:42→20:36)
[2019-11-10] MEDS: Hydrochlorothiazide 25 MG Tab PO SCH (08:42)
[2019-11-10] MEDS: Venlafaxine 75 MG Cap.ER PO SCH (08:42)
[2019-11-10] MEDS: Potassium Phos in 0.9 % NaCl 15 MMOL in Premix Bag 1 BAG IV SCH ×8 (08:43→18:15)
[2019-11-10] MEDS: Dextrose 5%-Lactated Ringers 1,000 ML IV SCH ×2 (10:14→22:11)
[2019-11-10] MEDS: Calcium Carbonate 500 MG Tab.Chew PO PRN ×2 (11:11→20:35)
--- NOTE | 2019-11-10 11:48 | PN ---
DATE OF SERVICE: 11/10/2019 SUBJECTIVE: Iris has been up ambulating, afebrile. Oral intake on sips of clear liquids was 1340. Urine output via Judge catheter was 1775. LABORATORY DATA: Today, hemoglobin is 12.2, potassium 3.4, and phosphorus 2.4. BNP is down to 497; it was 1253. Iris reports her pain is controlled. She has no questions or concerns. OBJECTIVE: GENERAL: Iris Mosley is a pleasant 69-year-old female. She is alert and orientated. Color pale. VITAL SIGNS: TPR at 0327, 97.8, 89, 18, blood pressure 149/59. HEENT: Negative. NECK: Supple. HEART: Regular rate and rhythm. LUNGS: Reveal decreased breath sounds at bases. ABDOMEN: Soft, normally rounded. Abdominal binder is on. EXTREMITIES: Without peripheral edema. ASSESSMENT: Exploratory laparotomy with lysis of extensive adhesions: 1. Repair of recurrent incarcerated incisional hernia with mesh. 2. Left oophorectomy. 3. Excision of peritoneal nodule. 4. Placement of Vicryl mesh. POSTOPERATIVE DIAGNOSES: 1. Recurrent incisional hernia. 2. History of recurrent ovarian cyst. 3. Nodular lesion, 11 cm, between large and small bowel. Date of procedure: 11/08/2019. Surgeon: Gary Lam MD. PLAN: 1. K-Phos 60 millimoles IV 1 time today. 2. Lasix 20 mg IV 1 time. 3. Labs are preordered, and a CBC, CMP, phos, and BNP will be ordered. No magnesium due to the patient getting magnesium. 4. Shower. 5. Discontinue Judge. 6. Continued to work with the patient with incentive spirometer and ambulation. 7. We will evaluate p.r.n. or in a.m. Cathy Dolan PA-C /[id number]
[2019-11-10] MEDS: Nicotine 14 MG/24 Hr Patch TRDERM SCH (13:57)
[2019-11-10] MEDS: Pantoprazole 40 MG Vial IV SCH (15:38)
[2019-11-10] MEDS: Pravastatin 20 MG Tab PO SCH (20:36)
[2019-11-11] MEDS: Magnesium Sulfate/Water 2 GM in Premix Bag 1 BAG IV SCH ×4 (03:48→21:06)
[2019-11-11] MEDS ORDERED: Dextrose 5%-Lactated Ringers 1,000 ML IV SCH (07:03)
[2019-11-11] MEDS ORDERED: HYDROmorphone 2 MG Tab PO PRN (07:04)
[2019-11-11] MEDS ORDERED: Furosemide 20 MG Tab PO ONE (07:30)
[2019-11-11] MEDS: Albuterol/Ipratropium 3.0-0.5 MG/3 ML Neb Soln NEB SCH ×4 (07:36→20:19)
[2019-11-11] MEDS: Docusate Sodium 100 MG Cap PO SCH ×2 (08:54→20:20)
[2019-11-11] MEDS: Acetaminophen 325 MG Tab PO SCH ×3 (08:54→20:20)
[2019-11-11] MEDS: Bisacodyl 5 MG Tab PO SCH ×2 (08:55→20:21)
[2019-11-11] MEDS: Nicotine 14 MG/24 Hr Patch TRDERM SCH (08:55)
[2019-11-11] MEDS: Lactobacillus Rhamnosus GG (Probiotic) Cap PO SCH ×2 (08:55→20:21)
[2019-11-11] MEDS: Venlafaxine 75 MG Cap.ER PO SCH (08:55)
[2019-11-11] MEDS: Psyllium Seed (With Sugar) Wafer PO SCH ×2 (08:58→09:04)
[2019-11-11] MEDS: Hydrochlorothiazide 25 MG Tab PO SCH (08:58)
[2019-11-11] MEDS: Potassium Chloride 20 MEQ Tab.ER PO SCH ×2 (08:58→20:21)
[2019-11-11] MEDS: Metoprolol Succinate 50 MG Tab.ER PO SCH (08:59)
--- NOTE | 2019-11-11 10:26 | PN ---
DATE OF SERVICE: 11/11/2019 SUBJECTIVE: Iris has been afebrile. Her pain has been controlled. She has been up ambulating 6 or more times. Oral intake 700 on sips of clear liquid, output 1900. She has a difficult time taking a deep breath due to incisional pain. She does have a wet-sounding cough, but is very shallow. History of smoking. Nicotine patch was ordered yesterday. She has no other concerns or questions. LABORATORIES: Hemoglobin 11.2, potassium 3.2. BNP is 548, up a tiny bit from 497 yesterday. OBJECTIVE: GENERAL: Iris Mosley is a pleasant 69-year-old female. She is alert and orientated. VITAL SIGNS: TPR at 0722; 96.9, 85, 19. Blood pressure 126/57, O2 is 93% on 1 L. HEENT: Negative. NECK: Supple. HEART: Regular rate and rhythm. LUNGS: Reveal decreased breath sounds in bases bilaterally, left is greater than right. She does have a wet-sounding cough. ABDOMEN: Aquacel dressings on, dry and intact. EXTREMITIES: Without peripheral edema. SCDs are on. ASSESSMENT: Exploratory laparotomy with lysis of extensive adhesions. 1. Repair of recurrent incarcerated incisional hernia with mesh. 2. Left oophorectomy. 3. Excision of peritoneal nodule. 4. Placement of Vicryl mesh. POSTOPERATIVE DIAGNOSES: 1. Recurrent incisional hernia. 2. History of recurrent ovarian cyst. 3. Nodular lesion, 11 cm, between large and small bowel. Date of procedure: 11/08/2019. Surgeon: Gary Lam MD. PLAN: 1. Full liquid diet. 2. KCl 40 mEq p.o. with meals b.i.d., today only. 3. Decrease IV to 60 mL per hour. 4. Lasix 20 mg p.o. 1 time today. 5. DuoNebs q.i.d. and p.r.n. per respiratory therapist. 6. Discontinue CHAIN MAKER MACHINE. 7. Dilaudid 2 to 4 mg every 4 hours p.r.n. pain. 8. Tylenol 650 mg every 6 hours scheduled p.o. pain. 9. Colace 100 mg b.i.d., scheduled. 10.Dulcolax 10 mg b.i.d. p.o. scheduled, but discontinue when patient has a bowel movement. 11.Replace Aquacel dressing. 12.Check CBC, CMP, phos, and BNP in a.m. 13.Acapella ordered to use 10 times every hour while awake. 14.Continue ambulation. 15.We will evaluate p.r.n. or in a.m. Cathy Dolan PA-C /[id number]
[2019-11-11] MEDS: Pantoprazole 40 MG Tab.CR PO SCH (17:03)
[2019-11-11] MEDS: Psyllium Husk Powder Sugar Free 5.85 GM Packet PO SCH (17:50)
[2019-11-11] MEDS: Pravastatin 20 MG Tab PO SCH (20:21)
[2019-11-12] MEDS: Acetaminophen 325 MG Tab PO SCH ×4 (02:43→19:39)
[2019-11-12] MEDS: Magnesium Sulfate/Water 2 GM in Premix Bag 1 BAG IV SCH (03:56)
[2019-11-12] MEDS: Albuterol/Ipratropium 3.0-0.5 MG/3 ML Neb Soln NEB SCH ×4 (07:49→20:15)
[2019-11-12] MEDS ORDERED: Sodium Chloride 0.9% 10 ML Syringe IV PRN (08:00)
[2019-11-12] MEDS: Nicotine 14 MG/24 Hr Patch TRDERM SCH (09:37)
[2019-11-12] MEDS: Potassium Chloride 20 MEQ Tab.ER PO SCH ×3 (09:37→16:36)
[2019-11-12] MEDS: Furosemide 20 MG/2 ML VIAL IVPUSH SCH ×2 (09:38→16:37)
[2019-11-12] MEDS: Lactobacillus Rhamnosus GG (Probiotic) Cap PO SCH ×2 (09:39→20:16)
[2019-11-12] MEDS: Docusate Sodium 100 MG Cap PO SCH ×2 (09:39→20:15)
[2019-11-12] MEDS: Venlafaxine 75 MG Cap.ER PO SCH (09:39)
[2019-11-12] MEDS: Psyllium Husk Powder Sugar Free 5.85 GM Packet PO SCH (09:40)
[2019-11-12] MEDS: Hydrochlorothiazide 25 MG Tab PO SCH (09:40)
[2019-11-12] MEDS: Metoprolol Succinate 50 MG Tab.ER PO SCH (09:40)
[2019-11-12] MEDS: Pantoprazole 40 MG Tab.CR PO SCH (16:37)
[2019-11-12] MEDS: Pravastatin 20 MG Tab PO SCH (20:16)
[2019-11-13] MEDS: Acetaminophen 325 MG Tab PO SCH ×2 (01:37→10:00)
[2019-11-13] MEDS: Albuterol/Ipratropium 3.0-0.5 MG/3 ML Neb Soln NEB SCH (07:39)
[2019-11-13] MEDS ORDERED: Potassium Chloride 20 MEQ Tab.ER PO ONE (09:00)
[2019-11-13] MEDS ORDERED: Furosemide 20 MG/2 ML VIAL IVPUSH ONE (09:00)
[2019-11-13] MEDS: Docusate Sodium 100 MG Cap PO SCH (10:00)
[2019-11-13] MEDS: Metoprolol Succinate 50 MG Tab.ER PO SCH (10:00)
[2019-11-13] MEDS: Hydrochlorothiazide 25 MG Tab PO SCH (10:00)
[2019-11-13] MEDS: Lactobacillus Rhamnosus GG (Probiotic) Cap PO SCH (10:00)
[2019-11-13] MEDS: Nicotine 14 MG/24 Hr Patch TRDERM SCH (10:03)
[2019-11-13] MEDS: Venlafaxine 75 MG Cap.ER PO SCH (10:03)
[2019-11-13] MEDS: Psyllium Husk Powder Sugar Free 5.85 GM Packet PO SCH (10:04)
--- NOTE | 2019-11-13 11:19 | DISCH ---
FINAL DIAGNOSES: 1. Recurrent incarcerated incisional hernia. 2. History of recurrent ovarian cyst. 3. Nodular lesion located between loops of large and small bowel. 4. Cardiomyopathy. 5. Hyperlipidemia. 6. Gastroesophageal reflux disease. 7. Hypertension. OPERATIVE PROCEDURES: Done on 11/07, exploratory laparotomy with lysis of extensive adhesions and: 1. Repair of recurrent incarcerated incisional hernia with mesh. 2. Left oophorectomy. 3. Excision of peritoneal nodule. 4. Placement of Vicryl mesh to limit recurrent adhesion formation between pelvic and abdominal wall and underlying viscera. SUMMARY: This is a 69-year-old female presenting with a large recurrent incisional hernia located in the lower abdomen and suprapubic area. On the day of admission, the patient underwent an exploratory laparotomy and repair of the hernia with mesh. Care was taken to dissect well behind the pubic bone in order to fix the mesh in that location hopefully precluding a recurrence. The patient does have history of problems with recurrent ovarian cyst and is status post right oophorectomy, and per the patient's preference, a left oophorectomy was performed as well. There was a fairly large peritoneal implant located within the large and small bowel. This was measuring 11 cm which was excised. Pathology on that is pending, but will likely be benign. Postoperatively, the patient was fairly slow in terms of the return of bowel function, but this has now returned and she is eating satisfactorily. She also had some propensity for fluid overload and was kept the next today to get some of the fluid off, and presently now is maintained with the sats in the low 90s and breathing quite comfortably. She should be discharged home with instructions to continue the incentive spirometer and Acapella following hospital for the next week. We will continue to augment diuresis with the patient to receive Lasix 20 mg p.o. daily x5 days and potassium is in lower end of normal at 3.5, so supplemented for the next month with KCl 20 mEq daily. She is only requiring Tylenol for pain. Follow up will be with Cathy Dolan in [facility] on 11/24, and with Dr. Lam at [facility] on December 06. On the 11/24 appointment, the patient will get a BMP, magnesium, BNP for followup of her electrolytes and fluid status.
--- NOTE | 2019-11-13 13:54 | PN ---
DATE OF SERVICE: 11/12/2019 The patient has been afebrile with stable vital signs. Did get her bowels moving fairly vigorously, and we will back down on Dulcolax at this point. She will continue on the Metamucil and probiotics. Otherwise, she is still running O2 sats in the upper 80s. We will try leaving oxygen off, as O2 sats remain above 88. We will give her some additional diuresis today, along with supplemental potassium. She will likely be ready for discharge home tomorrow. Gary Lam MD /[id number] MTDD
--- NOTE | 2019-11-14 08:54 | OR ---
DATE OF PROCEDURE: 11/08/2019 SURGEON: Gary Lam MD PREOPERATIVE DIAGNOSES: 1. Recurrent incarcerated incisional hernia. 2. History of recurrent ovarian cyst. POSTOPERATIVE DIAGNOSES: 1. Recurrent incarcerated incisional hernia. 2. History of recurrent ovarian cyst. 3. Nodular peritoneal lesion between loops of large and small bowel. OPERATIVE PROCEDURES: Exploratory laparotomy with lysis of extensive adhesions and: 1. Repair of recurrent incarcerated incisional hernia with mesh (71882) ([id number]). 2. Left oophorectomy (59934). 3. Excision of peritoneal nodule extending between large and small bowel loops (36660). 4. Placement of Vicryl mesh to limit recurrent adhesion formation between the abdominal and pelvic villalba and underlying viscera (80783). ANESTHESIA: General. BOAT RIGGER: Cathy Dolan PA-C INDICATIONS FOR PROCEDURE: The patient presents with a large recurrent incisional hernia that is located in the lower abdomen and particularly in the suprapubic area. Plan is to proceed with repair of this with mesh technique. Additionally, the patient has had problems with recurrent ovarian cyst. She had previously had a right ovary removed and she would like to have the left ovary removed if that appears to be reasonably straight forward procedure. Sometimes, this will be encapsulated with dense adhesions and judgment maybe it would be better to leave this in place. Otherwise, potential risks of the procedure per se including bleeding, infection, injury to underlying viscera, problems with the hernia recurring or the mesh becoming infected were all reviewed, and the patient wishes to proceed. DETAILS OF PROCEDURE: The patient was taken to the operating room, and after general endotracheal anesthesia was induced, a Judge catheter was inserted, and the abdomen prepped and draped. The lower midline incision was thus extended from roughly 3 fingerbreadths above the umbilicus down to the pubis, carried down through the skin and subcutaneous tissue. The hernia sac was then identified. This largely involved the suprapubic area. Once the peritoneal cavity was entered, fairly extensive adhesions were taken down to a point where the abdominal wall along with the pelvic villalba were cleared of adhesions to allow subsequent mesh placement. At this point, dissection followed the round ligament downward toward the left ovary. This was identified, this was quite small and this was excised with SALVADOR joseph. The hernia sac and suprapubic area were then dissected free, and at that point, that portion of the fascia was closed from within using #2 Vicryl stitch. In order to have the hernia not recur, it was clear that we needed to get fixation into the pubic bone well away from the edges of pubic bone in the retropubic area. The urinary bladder and surrounding soft tissues were then dissected free from the retropubic area extending well bilaterally. Of note, during the dissection, a dense peritoneal fibrinous type implant was noted present draping across the large end of the sigmoid colon. This was dissected free and removed. This most likely would be benign, but histologic confirmation would appear to be appropriate. This measured 11 cm in maximal dimension. The mesh was then mapped out as such that it would lie well beyond the pubic bone posteriorly and up against the abdominal wall above the present incision. This required a quite large mesh, this being a Ventrio ST hernia patch measuring 27.4 x 34.9 cm. Initially, the mesh was placed into the retropubic area and fixed there with Titanium tacking screws until it was well fixed in that area. A second layer of tacking screws between the mesh and the more anterior free edge of the pubic bone was then also secured with titanium tacking screws. At that point, Vicryl mesh was placed posterior to the newly placed mesh onto the pelvic sidewalls and up against the abdominal wall to limit adhesion formation between those structures and the underlying viscera. The sutures along the perimeter of the mesh, these being 2-0 Vicryl sutures were then placed and small stab wounds were then placed in the abdominal wall and these were sequentially pulled up thus securing the mesh well away from the fascial defect. At that point, these were then tied and the mesh additionally secured circumferentially with titanium tacking screws to the underlying shelf of the mesh. Upon completion of this, the midline fascia was approximated with #2 Vicryl stitch. Prior to closure, bilateral transversus abdominis plane blocks were placed. The mesh was then soaked into meropenem and Zyvox-containing saline solution. This was also used to irrigate the mesh prior to closure. Upon completion of the fascial closure, 2 layers of 3-0 and 4-0 Vicryl stitch was placed deep and the skin closed with joseph. Dressing was applied. The patient was taken to the recovery room in satisfactory condition. Physician operating room assistant, Cathy Dolan, played an essential role in assisting in this case, helping to position the patient, retract structures as needed, as well as suturing and cutting sutures when indicated. Her presence improved patient safety and decreased operative time. Gary Lam MD /[id number]
== END 2019-11-13 11:00 | disposition home or self-care (01) | DRG 336 ==
LOC: JP.SDS 08:29 → JP.SDSSCHI 08:29 → EDSTATUS 11:45 → JP.MS 13:45
PROVIDERS: ADMIT Surgery; ATTEND Surgery
PROC: 0WUF0JZ Supplement Abdominal Wall with Synthetic Substitute, Open Approach (ICD-10-PCS; principal; 2019-11-08)
PROC: 0DNW0ZZ Release Peritoneum, Open Approach (ICD-10-PCS; 2019-11-08)
PROC: 0UB10ZZ Excision of Left Ovary, Open Approach (ICD-10-PCS; 2019-11-08)
PROC: 0DBW0ZZ Excision of Peritoneum, Open Approach (ICD-10-PCS; 2019-11-08)
PROC: 0WCG0ZZ Extirpation of Matter from Peritoneal Cavity, Open Approach (ICD-10-PCS; 2019-11-08)
PROC: 3E0M05Z Introduction of Adhesion Barrier into Peritoneal Cavity, Open Approach (ICD-10-PCS; 2019-11-08)
DX: K43.0 Incisional hernia with obstruction, without gangrene (principal); I42.9 Cardiomyopathy, unspecified; K66.0 Peritoneal adhesions (postprocedural) (postinfection); K21.9 Gastro-esophageal reflux disease without esophagitis; R35.0 Frequency of micturition; N83.202 Unspecified ovarian cyst, left side; I35.1 Nonrheumatic aortic (valve) insufficiency; E78.5 Hyperlipidemia, unspecified; I10 Essential (primary) hypertension; Z79.899 Other long term (current) drug therapy; Z88.6 Allergy status to analgesic agent; Z87.891 Personal history of nicotine dependence
CPT/HCPCS: 36415; 80048; 80053; 83735; 83880; 84100; 85027; 88302; 88305; 88341; 88342; 94640; 94667; 94762; A9270-GY; C1713; C1781; C9113; J0171; J0330; J0690; J1100; J1170; J1940; J2020; J2185; J2405; J2704; J2710; J2795; J3010; J3410; J3475; J3490; J7050; J7120; J7121; J7620-GY

== ENCOUNTER 2024-09-29 08:29 | Day surgery (SDC) | payer MEDICARE, BC ==
[2024-09-29] MEDS: Lactated Ringers 1,000 ML IV SCH (08:45)
[2024-09-29] MEDS ORDERED: fentaNYL 100 MCG/2 ML SDV ONE (10:38)
[2024-09-29] MEDS ORDERED: Propofol 200 MG/20 ML SDV ONE (10:39)
== END 2024-09-29 12:01 | disposition home or self-care (01) ==
LOC: JP.SDS 08:29
PROVIDERS: ATTEND Surgery
DX: Z12.11 Encounter for screening for malignant neoplasm of colon (principal); I10 Essential (primary) hypertension; E66.9 Obesity, unspecified; Z80.0 Family history of malignant neoplasm of digestive organs; Z88.8 Allergy status to other drugs, medicaments and biological substances; Z90.49 Acquired absence of other specified parts of digestive tract
CPT/HCPCS: G0105; J2704; J3010; J7120